=== PATIENT | male | born 1940 | race Caucasian/White ===

== ENCOUNTER 2019-02-03 09:01 | Inpatient (IN) | payer MEDICARE, BC ==
[2019-02-03 09:40] LABS: Basophils % (A) 1 %; Eosinophils # (A) 0.3 k/uL (0-0.7); Eosinophils % (A) 4 %; HCT 42.5 % (39.0-53.0); HGB 14.6 gm/dL (13.0-17.5); Lymphocytes % (A) 14 %; MCHC 34.3 g/dL (31.0-37.0); MCV 87.5 fL (80.0-100.0); Mean Platelet Volume 7.9; Monocytes # (A) 0.4 k/uL (0-1.0); Monocytes % (A) 6 %; Neutrophils # (A) 5.3 k/uL (1.3-7.7); Neutrophils % (A) 74 %; Platelet Count 201 k/uL (150-450); RBC 4.86 m/uL (4.30-5.90); RDW 13.7 % (11.5-15.5); WBC 7.1 k/uL (3.8-10.6)
--- NOTE | 2019-02-03 09:47 | XR ---
EXAMINATION TYPE: XR chest 2V DATE OF EXAM: 02/03/2019 HISTORY: difficulty breathing. REFERENCE: NONE. FINDINGS: The heart is mildly prominent. The lungs are clear. Pleural space are clear. IMPRESSION: MILD CARDIOMEGALY.
--- NOTE | 2019-02-03 09:49 | ED ---
SOB HPI - General Chief Complaint: Shortness of Breath Stated Complaint: SOB Time Seen by Provider: 02/03/19 09:13 Source: patient, RN notes reviewed Mode of arrival: ambulatory Limitations: no limitations - History of Present Illness Initial Comments: This is a 78-year-old male with a history of coronary artery bypass 4 in 1995 but who denies any lung issues who presents with complaints of intermittent episodes of shortness of breath. He states he has some yesterday. None now no chest pain no palpitations no fevers chills nausea vomiting sweats cough or phlegm production of note his in the past 2 or 3 weeks. MD Complaint: shortness of breath - Related Data Allergies Allergy/AdvReac Type Severity Reaction Status Date / Time No Known Allergies Allergy Verified 02/03/19 09:08 Review of Systems ROS Statement: Those systems with pertinent positive or pertinent negative responses have been documented in the HPI. ROS Other: All systems not noted in ROS Statement are negative. Past Medical History Past Medical History: Unable to Obtain History of Any Multi-Drug Resistant Organisms: None Reported Past Surgical History: Coronary Bypass/CABG Past Psychological History: No Psychological Hx Reported Smoking Status: Current every day smoker Past Alcohol Use History: None Reported Past Drug Use History: None Reported General Exam - General Exam Comments Initial Comments: This is a well-developed well-nourished awake alert oriented 3 male Limitations: no limitations General appearance: alert, in no apparent distress Head exam: Present: atraumatic, normocephalic, normal inspection Eye exam: Present: normal appearance, PERRL, EOMI. Absent: scleral icterus, conjunctival injection, periorbital swelling ENT exam: Present: normal exam, mucous membranes moist Neck exam: Present: normal inspection. Absent: tenderness, meningismus, lymphadenopathy Respiratory exam: Present: normal lung sounds bilaterally. Absent: respiratory distress, wheezes, rales, rhonchi, stridor Cardiovascular Exam: Present: bradycardia. Absent: systolic murmur, diastolic murmur, rubs, gallop, clicks GI/Abdominal exam: Present: soft, normal bowel sounds. Absent: distended, tenderness, guarding, rebound, rigid Extremities exam: Present: normal inspection, full ROM, normal capillary refill. Absent: tenderness, pedal edema, joint swelling, calf tenderness Back exam: Present: normal inspection Neurological exam: Present: alert, oriented X3, CN II-XII intact Psychiatric exam: Present: normal affect, normal mood Skin exam: Present: warm, dry, intact, normal color. Absent: rash Course Vital Signs 02/03/19 02/03/19 02/03/19 09:04 09:22 09:30 Pulse Rate 40 L 56 L 49 L Respiratory 18 Rate Blood Pressure 172/89 117/80 O2 Sat by Pulse 98 94 L Oximetry 02/03/19 02/03/19 10:00 11:09 Pulse Rate 50 L 51 L Respiratory 17 17 Rate Blood Pressure 124/72 128/79 O2 Sat by Pulse 96 Oximetry Medical Decision Making - Medical Decision Making I did discuss findings with the patient patient will be admitted with cardiology consultation the case is discussed with - Lab Data Result diagrams: 02/03/19 09:23 02/03/19 09:23 Lab Results 02/03/19 02/03/19 02/03/19 Range/Units 09:23 09:23 09:23 WBC 7.1 (3.8-10.6) k/uL RBC 4.86 (4.30-5.90) m/uL Hgb 14.6 (13.0-17.5) gm/dL Hct 42.5 (39.0-53.0) % MCV 87.5 (80.0-100.0) fL MCH 30.0 (25.0-35.0) pg MCHC 34.3 (31.0-37.0) g/dL RDW 13.7 (11.5-15.5) % Plt Count 201 (150-450) k/uL Neutrophils % 74 % Lymphocytes % 14 % Monocytes % 6 % Eosinophils % 4 % Basophils % 1 % Neutrophils # 5.3 (1.3-7.7) k/uL Lymphocytes # 1.0 (1.0-4.8) k/uL Monocytes # 0.4 (0-1.0) k/uL Eosinophils # 0.3 (0-0.7) k/uL Basophils # 0.0 (0-0.2) k/uL PT 10.5 (9.0-12.0) sec INR 1.0 (<1.2) APTT 25.3 (22.0-30.0) sec D-Dimer 0.66 H (<0.60) mg/L FEU Sodium 139 (137-145) mmol/L Potassium 4.0 (3.5-5.1) mmol/L Chloride 107 (98-107) mmol/L Carbon Dioxide 22 (22-30) mmol/L Anion Gap 10 mmol/L BUN 12 (9-20) mg/dL Creatinine 0.89 (0.66-1.25) mg/dL Est GFR (CKD-EPI)AfAm >90 (>60 ml/min/1.73 sqM) Est GFR (CKD-EPI)NonAf 83 (>60 ml/min/1.73 sqM) Glucose 133 H (74-99) mg/dL Calcium 9.0 (8.4-10.2) mg/dL Magnesium 2.0 (1.6-2.3) mg/dL Total Bilirubin 1.4 H (0.2-1.3) mg/dL AST 21 (17-59) U/L ALT 36 (21-72) U/L Alkaline Phosphatase 61 (38-126) U/L Creatine Kinase 63 (55-170) U/L Troponin I (0.000-0.034) ng/mL NT-Pro-B Natriuret Pep pg/mL Total Protein 6.8 (6.3-8.2) g/dL Albumin 4.2 (3.5-5.0) g/dL 02/03/19 02/03/19 Range/Units 09:23 09:23 WBC (3.8-10.6) k/uL RBC (4.30-5.90) m/uL Hgb (13.0-17.5) gm/dL Hct (39.0-53.0) % MCV (80.0-100.0) fL MCH (25.0-35.0) pg MCHC (31.0-37.0) g/dL RDW (11.5-15.5) % Plt Count (150-450) k/uL Neutrophils % % Lymphocytes % % Monocytes % % Eosinophils % % Basophils % % Neutrophils # (1.3-7.7) k/uL Lymphocytes # (1.0-4.8) k/uL Monocytes # (0-1.0) k/uL Eosinophils # (0-0.7) k/uL Basophils # (0-0.2) k/uL PT (9.0-12.0) sec INR (<1.2) APTT (22.0-30.0) sec D-Dimer (<0.60) mg/L FEU Sodium (137-145) mmol/L Potassium (3.5-5.1) mmol/L Chloride (98-107) mmol/L Carbon Dioxide (22-30) mmol/L Anion Gap mmol/L BUN (9-20) mg/dL Creatinine (0.66-1.25) mg/dL Est GFR (CKD-EPI)AfAm (>60 ml/min/1.73 sqM) Est GFR (CKD-EPI)NonAf (>60 ml/min/1.73 sqM) Glucose (74-99) mg/dL Calcium (8.4-10.2) mg/dL Magnesium (1.6-2.3) mg/dL Total Bilirubin (0.2-1.3) mg/dL AST (17-59) U/L ALT (21-72) U/L Alkaline Phosphatase (38-126) U/L Creatine Kinase (55-170) U/L Troponin I 0.029 (0.000-0.034) ng/mL NT-Pro-B Natriuret Pep 4980 pg/mL Total Protein (6.3-8.2) g/dL Albumin (3.5-5.0) g/dL - EKG Data -: EKG Interpreted by Me (Sinus bradycardia rate of 49. Interval 322 QRS duration 140 QT since QTC ) 02/03/19 12:15 Sinus bradycardia first-degree AV block with the ventricular contractions rate 49. Interval 322 QRS 140 QT since QTC 516/466 red bundle-branch block pattern inferior changes also nonspecific anterior configuration - Radiology Data Radiology results: report reviewed (No definite acute changes seen in x-ray.), image reviewed Disposition Clinical Impression: Congestive heart failure, Bradycardia Disposition: ADMITTED IP TO THIS HOSP Condition: Fair Referrals: Juan Pablo Dayl MD [Primary Care Provider] - 1-2 days
[2019-02-03 09:53] LABS: Partial Thromboplastin Time 25.3 sec (22.0-30.0); Prothrombin Time 10.5 sec (9.0-12.0)
[2019-02-03 09:54] LABS: ALT 36 U/L (21-72); AST 21 U/L (17-59); African American GFR (CKD) >90 (>60 ml/min/1.73 sqM); Albumin 4.2 g/dL (3.5-5.0); Alkaline Phosphatase 61 U/L (38-126); Anion Gap 10 mmol/L; Blood Urea Nitrogen 12 mg/dL (9-20); Carbon Dioxide 22 mmol/L (22-30); Chloride 107 mmol/L (98-107); Creatine Kinase 63 U/L (55-170); Glucose 133 mg/dL (74-99); Non-African American GFR(CKD) 83 (>60 ml/min/1.73 sqM); Sodium 139 mmol/L (137-145); Total Bilirubin 1.4 mg/dL (0.2-1.3); Total Protein 6.8 g/dL (6.3-8.2)
[2019-02-03 09:55] LABS: D-Dimer 0.66 mg/L FEU (<0.60)
--- NOTE | 2019-02-03 11:08 | CT ---
EXAMINATION TYPE: CT angio chest DATE OF EXAM: 02/03/2019 10:57 AM COMPARISON: None. HISTORY: Dyspnea with elevated d-dimer CT DLP: 380.6 mGycm Automated exposure control for dose reduction was used. CONTRAST: CTA scan of the thorax is performed with IV Contrast, patient injected with 100 mL of Isovue 370, pul monary embolism protocol. . FINDINGS: There is mild dependent atelectasis in the dependent portions of both lungs. There is no significant axillary, mediastinal or hilar adenopathy. There is no evidence of pulmonary embolus. Through the aorta is dilated measuring 4.3 cm. The proximal arch is aneurysmal measuring 3.5 cm. Prox imal descending thoracic aorta is aneurysmal measuring 3.2 cm. At the level of the aortic hiatus, the aorta measures 2.8 cm. There is no pleural or pericardial fluid. The heart is enlarged. Visualized portions of the upper abdomen are unremarkable. There is degenerative disease, hypertrophic spondylosis and spondylosis deformans within the dorsal s pine. IMPRESSION: 1. THIS EXAMINATION IS NEGATIVE FOR PULMONARY EMBOLUS. 2. ASCENDING THORACIC AORTIC ANEURYSM. 3. CARDIOMEGALY. 4. DEGENERATIVE CHANGE WITHIN THE SPINE.
[2019-02-03] MEDS ORDERED: FUROSEMIDE 10 MG/ML 4 ML VIAL IV STA (12:14)
[2019-02-03] MEDS: SODIUM CHLORIDE 0.9% 1,000 ML IV SCH (14:20)
[2019-02-03] MEDS: SPIRONOLACTONE 25 MG TAB PO SCH (17:09)
[2019-02-03] MEDS: FUROSEMIDE 10 MG/ML 4 ML VIAL IV SCH (20:32)
[2019-02-03] MEDS ORDERED: ACETAMINOPHEN TAB 500 MG TAB PO PRN (21:28)
[2019-02-03] MEDS: ATORVASTATIN 40 MG TAB PO SCH (22:21)
--- NOTE | 2019-02-03 23:45 | P.HPIM ---
History of Present Illness H&P Date: 02/03/19 Chief Complaint: Shortness of breath Patient is a 78 old male with a known history of coronary artery disease status post CABG in 1995 came to ER with the complaints of shortness of breath and fluid around the heart. Denied any complaints of cough or sputum production. No complains of chest pain. No nausea vomiting or abdominal pain. Patient denied any leg swelling. Patient is also poor historian. Denied any fever or chills. Patient says that he does take his medications at home. Denied history of recent stress test. Patient's in the past 2-3 weeks. BNP 4980. Troponin 0.029 and 0.1 chest x-ray showed mild cardiomegaly. d-dimer is 0.66 CT angiogram of the chest showed negative for pulmonary embolism. Ascending thoracic aortic aneurysm measuring 4.3 cm. Cardiomegaly. Degenerative changes in the spine. Heart rate is in 40s on admission. Review of Systems Constitutional: Patient denies any fever or chills . No generalized weakness or weight loss. Abdomen: Patient denied nausea vomiting and diarrhea and abdominal pain. Cardiovascular: Patient denies any chest pain or does have short of breath no palpitations. Respiratory: patient denied any cough is from production. No shortness of br eath Neurologic: Patient denied any numbness or tingling headache. Musculoskeletal: Patient denies any complaints of joint swelling or deformity. Skin: Negative Psychiatric: Negative Endocrine: No heat or cold intolerance. No recent weight gain. Genitourinary: No dysuria or hematuria. All other 14 point ROS negative except the above Past Medical History Past Medical History: Coronary Artery Disease (CAD) History of Any Multi-Drug Resistant Organisms: None Reported Past Surgical History: Coronary Bypass/CABG Additional Past Surgical History / Comment(s): KIELAG in 1995 Past Anesthesia/Blood Transfusion Reactions: No Reported Reaction Past Psychological History: No Psychological Hx Reported Smoking Status: Never smoker Past Alcohol Use History: None Reported Past Drug Use History: None Reported - Past Family History Father Family Medical History: Coronary Artery Disease (CAD) Mother Family Medical History: Coronary Artery Disease (CAD) Medications and Allergies Home Medications Medication Instructions Recorded Confirmed Type Acetaminophen Tab [Tylenol Tab] 500 mg PO Q6H PRN 02/03/19 02/03/19 History Ascorbic Acid [Vitamin C] 500 mg PO DAILY 02/03/19 02/03/19 History Aspirin EC [Ecotrin Low Dose] 81 mg PO DAILY 02/03/19 02/03/19 History Carvedilol [Coreg] 3.125 mg PO BID 02/03/19 02/03/19 History Cholecalciferol (Vitamin D3) 2,000 unit PO DAILY 02/03/19 02/03/19 History [Vitamin D3] Cyanocobalamin [Vitamin B-12] 500 mcg PO DAILY 02/03/19 02/03/19 History Furosemide [Lasix] 40 mg PO HS 02/03/19 02/03/19 History Fortuna-3 Fatty Acids/Fish Oil [Fish 1 cap PO BID 02/03/19 02/03/19 History Oil 1,000 mg Softgel] Omeprazole 20 mg PO DAILY 02/03/19 02/03/19 History Potassium Chloride ER [K-Dur 10] 10 meq PO HS 02/03/19 02/03/19 History Allergies Allergy/AdvReac Type Severity Reaction Status Date / Time No Known Allergies Allergy Verified 02/03/19 12:27 Physical Exam Vitals: Vital Signs Temp Pulse Pulse Resp BP BP Pulse Ox 02/03/19 16:00 43 L 20 136/74 99 02/03/19 13:08 137/68 02/03/19 13:05 20 02/03/19 12:32 97.4 F L 62 20 138/72 97 02/03/19 12:00 54 L 119/97 97 02/03/19 11:09 51 L 17 128/79 02/03/19 11:00 61 111/50 97 02/03/19 10:30 44 L 124/74 96 02/03/19 10:00 50 L 17 124/72 96 02/03/19 09:30 49 L 117/80 02/03/19 09:22 56 L 94 L 02/03/19 09:04 40 L 18 172/89 98 Intake and Output 02/03/19 02/03/19 02/03/19 06:59 14:59 22:59 Intake Total 236 Balance 236 Intake: Oral 236 Other: # Voids 1 Weight 72.575 kg PHYSICAL EXAMINATION: Patient is lying in the bed comfortably, no acute distress, awake alert and oriented.. HEENT: Normocephalic. Neck is supple. Pupils reactive. Nostrils clear. Oral cavity is moist. Ears reveal no drainage. Neck reveals no JVD, carotid bruits, or thyromegaly. CHEST EXAMINATION: Trachea is central. Symmetrical expansion. Bibasilar diminished air entry. No wheezing. CARDIAC: Normal S1, S2 with no gallops. No murmurs ABDOMEN: Soft. Bowel sounds normal. No organomegaly. No abdominal bruits. Extremities: reveal no edema. No clubbing or cyanosis Neurologically awake, alert, oriented x3 with well-coordinated movements. No focal deficits noted Skin: No rash or skin lesions. Psychiatric: Coperative. Nonsuicidal. Anxious. Musculoskeletal: No joint swelling or deformity. Normal range of motion. Results CBC & Chem 7: 02/03/19 09:23 02/03/19 09:23 Labs: Abnormal Lab Results - Last 24 Hours (Table) 02/03/19 02/03/19 02/03/19 Range/Units 09:23 09:23 20:02 D-Dimer 0.66 H (<0.60) mg/L FEU Glucose 133 H (74-99) mg/dL Total Bilirubin 1.4 H (0.2-1.3) mg/dL Troponin I 0.100 H* (0.000-0.034) ng/mL Thrombosis Risk Factor Assmnt - DVT/VTE Prophylaxis DVT/VTE Prophylaxis: Pharmacologic Prophylaxis ordered - Choose All That Apply Any of the Below Risk Factors Present?: No Other Risk Factors: No Other congenital or acquired thrombophilia - If yes, enter type in comment: No Thrombosis Risk Factor Assessment Level: Very Low Risk Assessment and Plan Assessment: Shortness of breath likely due to acute CHF. Ejection fraction unknown. Sinus bradycardia with heart rate 40 Ascending aortic aneurysm 4.3 cm Elevated d-dimer level. CTA negative for pulmonary embolism. Mild cardiomegaly Coronary artery disease with history of CABG in 1995 GERD Degenerative joint disease. DVT prophylaxis with heparin subcu Plan: Patient will be continued on telemetry monitoring. Continue with IV Lasix. Monitor renal function. Chloride is on hold due to bradycardia. Continue with aspirin and statins. Cardiology was consulted. 2-D echocardiogram will be obtained. Further recommendations based on the clinical course. Time with Patient: Greater than 30
[2019-02-04] MEDS: HEPARIN SODIUM,PORCINE 5,000 UNIT/ML 1 ML VIAL SQ SCH ×3 (00:04→18:15)
[2019-02-04] MEDS: FUROSEMIDE 10 MG/ML 4 ML VIAL IV SCH ×3 (04:25→20:14)
[2019-02-04 06:06] LABS: Basophils % (A) 1 %; Eosinophils # (A) 0.4 k/uL (0-0.7); Eosinophils % (A) 5 %; HCT 46.4 % (39.0-53.0); HGB 15.9 gm/dL (13.0-17.5); Lymphocytes # (A) 1.5 k/uL (1.0-4.8); Lymphocytes % (A) 20 %; MCH 30.2 pg (25.0-35.0); MCHC 34.3 g/dL (31.0-37.0); MCV 87.9 fL (80.0-100.0); Mean Platelet Volume 7.8; Monocytes # (A) 0.4 k/uL (0-1.0); Monocytes % (A) 6 %; Neutrophils # (A) 4.9 k/uL (1.3-7.7); Neutrophils % (A) 67 %; Platelet Count 187 k/uL (150-450); RBC 5.28 m/uL (4.30-5.90); RDW 13.8 % (11.5-15.5); WBC 7.4 k/uL (3.8-10.6)
[2019-02-04] MEDS: PANTOPRAZOLE 40 MG TABLET PO SCH (06:07)
[2019-02-04 06:20] LABS: Calcium 9.6 mg/dL (8.4-10.2); Potassium 3.6 mmol/L (3.5-5.1)
[2019-02-04] MEDS: ATORVASTATIN 40 MG TAB PO SCH (09:14)
[2019-02-04] MEDS: SPIRONOLACTONE 25 MG TAB PO SCH (09:14)
[2019-02-04] MEDS: ASPIRIN 81 MG PO SCH (09:14)
--- NOTE | 2019-02-04 10:46 | ECHOF ---
Referral Reason:Heart failure. MEASUREMENTS -------- HEIGHT: 167.6 cm WEIGHT: 70.8 kg BP: 118/60 IVSd: 1.0 cm (0.6 - 1.1) LVIDd: 5.9 cm (3.9 - 5.3) LVPWd: 1.2 cm (0.6 - 1.1) IVSs: 1.9 cm LVIDs: 4.8 cm LVPWs: 1.4 cm LAESV Index (A-L): 47.30 ml/m Ao Diam: 4.2 cm (2.0 - 3.7) AV Cusp: 1.5 cm (1.5 - 2.6) LA Diam: 2.6 cm (2.7 - 3.8) MV EXCURSION: 15.965 mm (> 18.000) MV EF SLOPE: 119 mm/s (70 - 150) EPSS: 2.6 cm MV E Thaddeus: 1.02 m/s MV DecT: 166 ms MV A Thaddeus: 0.38 m/s MV E/A Ratio: 2.70 AR PHT: 407 ms RAP: 5.00 mmHg RVSP: 8.65 mmHg TAPSE: 18.66 mm FINDINGS -------- Resting bradycardia (HR<60bpm). This was a technically difficult study with suboptimal views. Previous CABG The left ventricle is mildly dilated. Left ventricular wall thickness is normal. There is severe global hypokinesis of LV . Overall left ventricular systolic function is severely impaired with, an EF between 20 - 25 %. Increased LAP Grade 3 Diastolic Dysfunction. The right ventricle is normal in size. LA is severely dilated >40 ml/m2 The right atrial size is normal. Lumason used The aortic valve is trileaflet and appears structurally normal. There is mild aortic regurgitation. The mitral valve is normal. The mitral valve leaflets are mildly thickened. Moderate mitral regur gitation is present. The tricuspid valve appears structurally normal. Mild tricuspid regurgitation present. Right vent ricular systolic pressure is normal at < 35 mmHg. There is no pulmonic regurgitation present. 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 There is no pericardial effusion. CONCLUSIONS -------- 1. Resting bradycardia (HR<60bpm). 2. This was a technically difficult study with suboptimal views. 3. Previous CABG 4. The left ventricle is mildly dilated. 5. Left ventricular wall thickness is normal. 6. There is severe global hypokinesis of LV . 7. Overall left ventricular systolic function is severely impaired with, an EF between 20 - 25 %. 8. Increased LAP Grade 3 Diastolic Dysfunction. 9. The right ventricle is normal in size. 10. LA is severely dilated >40 ml/m2 11. The right atrial size is normal. 12. Lumason used 13. The aortic valve is trileaflet and appears structurally normal. 14. There is mild aortic regurgitation. 15. The mitral valve is normal. 16. The mitral valve leaflets are mildly thickened. 17. Moderate mitral regurgitation is present. 18. The tricuspid valve appears structurally normal. 19. Mild tricuspid regurgitation present. 20. Right ventricular systolic pressure is normal at < 35 mmHg. 21. There is no pulmonic regurgitation present. 22. 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 IVC Not well visulized. 24. There is no pericardial effusion. NECKTIE TURNER: Gerri Bates RDCS
[2019-02-04 11:15] VITALS: BMI 25.2
--- NOTE | 2019-02-04 12:16 | P.CRDCN ---
History of Present Illness Consult date: 02/04/19 Requesting physician: Letty Mcgee Consult reason: congestive heart failure Chief complaint: Shortness of breath History of present illness: This is a 78-year-old gentleman with history of coronary artery bypass graft surgery several years ago, hypertension, hyperlipidemia, current every day smoker, he states that he used to follow with Dr. Mena in the office, had some type of falling out and has not seen him since. He also states that he is followed with the physicians at [facility]. His primary care doctor is local. The patient lost his 2-3 weeks ago after being for 51 years. He presents to the hospital on this occasion with symptoms of shortness of breath, positive PND and orthopnea, no significant peripheral edema, no chest discomfort. His chest x-ray on presentation here showed mild cardiomegaly. CTA of the chest was performed, negative for pulmonary embolism, it did reveal an ascending thoracic aortic aneurysm measuring 4.3 cm. His EKG on presentation here showed a sinus bradycardia with first-degree AV block and occasional PVCs right bundle branch block pattern and inferior Q waves. Blood pressure on arrival here 172/88 with a heart rate in the 40s to 50s, 98% on room air. Blood pressure this morning 128/60 with a heart rate in the 70s, 94% on room air. White blood cell count is normal, hemoglobin 15.9, platelet count 187, d-dimer 0.6. Sodium 140, potassium 3.6, BUN 18, creatinine 1.03. Troponin 0.029, 0.100, 0.078. BNP level 4980. Patient denies having any chest discomfort, other than the shortness of breath he states he just did not feel right. Total bilirubin 1.4. Patient was initiated on IV Lasix on arrival here, his weight today is down 1 kg. Echocardiogram with Doppler study was performed which revealed an ejection fraction of 20-25%. The patient is unsure as to whether or not he's been told in the past to have cardiomyopathy, we will try to obtain an old echo from the office in this regard. I did have a discussion with the patient this morning regarding the initiation of Entresto, we will start that today and continue with current dose of IV Lasix. Past Medical History Past Medical History: Coronary Artery Disease (CAD) History of Any Multi-Drug Resistant Organisms: None Reported Past Surgical History: Coronary Bypass/CABG Additional Past Surgical History / Comment(s): CABAG in 1995 Past Anesthesia/Blood Transfusion Reactions: No Reported Reaction Past Psychological History: No Psychological Hx Reported Smoking Status: Never smoker Past Alcohol Use History: None Reported Past Drug Use History: None Reported - Past Family History Father Family Medical History: Coronary Artery Disease (CAD) Mother Family Medical History: Coronary Artery Disease (CAD) Medications and Allergies Home Medications Medication Instructions Recorded Confirmed Type Acetaminophen Tab [Tylenol Tab] 500 mg PO Q6H PRN 02/03/19 02/03/19 History Ascorbic Acid [Vitamin C] 500 mg PO DAILY 02/03/19 02/03/19 History Aspirin EC [Ecotrin Low Dose] 81 mg PO DAILY 02/03/19 02/03/19 History Carvedilol [Coreg] 3.125 mg PO BID 02/03/19 02/03/19 History Cholecalciferol (Vitamin D3) 2,000 unit PO DAILY 02/03/19 02/03/19 History [Vitamin D3] Cyanocobalamin [Vitamin B-12] 500 mcg PO DAILY 02/03/19 02/03/19 History Furosemide [Lasix] 40 mg PO HS 02/03/19 02/03/19 History [place]-3 Fatty Acids/Fish Oil [Fish 1 cap PO BID 02/03/19 02/03/19 History Oil 1,000 mg Softgel] Omeprazole 20 mg PO DAILY 02/03/19 02/03/19 History Potassium Chloride ER [K-Dur 10] 10 meq PO HS 02/03/19 02/03/19 History Allergies Allergy/AdvReac Type Severity Reaction Status Date / Time No Known Allergies Allergy Verified 02/03/19 12:27 Physical Exam Vitals: Vital Signs Temp Pulse Pulse Resp BP BP Pulse Ox 02/04/19 08:00 97.6 F 77 18 128/61 94 L 02/04/19 04:00 97.8 F 42 L 18 118/60 94 L 02/04/19 00:00 97.7 F 34 L 18 127/58 96 02/03/19 20:00 98.1 F 34 L 18 142/75 98 02/03/19 16:00 43 L 20 136/74 99 02/03/19 13:08 137/68 02/03/19 13:05 20 02/03/19 12:32 97.4 F L 62 20 138/72 97 02/03/19 12:00 54 L 119/97 97 Intake and Output 02/03/19 02/04/19 02/04/19 22:59 06:59 14:59 Intake Total 236 120 Output Total 1350 400 Balance -1114 -400 120 Intake: Oral 236 120 Output: Urine 1350 400 Other: Voiding Method Toilet Toilet Weight 71 kg 71 kg PHYSICAL EXAMINATION: GENERAL: 88-year-old gentleman in no acute distress at the time of my examination HEENT: Head is atraumatic, normocephalic. Pupils equal, round. Sclera anicteric. Conjunctiva are clear. Mucous membranes of the mouth are moist. Neck is supple. There is elevated jugular venous pressure. No carotid bruit is heard. HEART EXAMINATION: Heart S1 and S2 with systolic murmur is heard CHEST EXAMINATION: And circumflex clear with mild diminished air entry to the bases posteriorly. ABDOMEN: Soft, nontender. Bowel sounds are heard. No organomegaly noted. EXTREMITIES: 2+ peripheral pulses with no evidence of peripheral edema and no calf tenderness noted. NEUROLOGIC patient is awake, alert and oriented 3 . . Results 02/04/19 05:50 02/04/19 05:50 Cardiac Enzymes 02/03/19 02/04/19 Range/Units 20:02 05:50 Troponin I 0.100 H* 0.078 H* (0.000-0.034) ng/mL CBC 02/04/19 Range/Units 05:50 WBC 7.4 (3.8-10.6) k/uL RBC 5.28 (4.30-5.90) m/uL Hgb 15.9 (13.0-17.5) gm/dL Hct 46.4 (39.0-53.0) % Plt Count 187 (150-450) k/uL Comprehensive Metabolic Panel 02/04/19 Range/Units 05:50 Sodium 140 (137-145) mmol/L Potassium 3.6 (3.5-5.1) mmol/L Chloride 103 (98-107) mmol/L Carbon Dioxide 29 (22-30) mmol/L BUN 18 (9-20) mg/dL Creatinine 1.03 (0.66-1.25) mg/dL Glucose 103 H (74-99) mg/dL Calcium 9.6 (8.4-10.2) mg/dL Current Medications Generic Name Dose Route Start Last Admin Trade Name Freq PRN Reason Stop Dose Admin Acetaminophen 500 mg 02/03/19 21:28 Tylenol Tab PO Q6H PRN Pain Aspirin 81 mg 02/04/19 09:00 02/04/19 09:14 Aspirin PO 81 mg DAILY SUNSHINE Administration Atorvastatin Calcium 40 mg 02/03/19 22:00 02/04/19 09:14 Lipitor PO 40 mg DAILY SUNSHINE Administration Furosemide 40 mg 02/03/19 20:00 02/04/19 04:25 Lasix IV 40 mg Q8H SUNSHINE Administration Heparin Sodium (Porcine) 5,000 unit 02/04/19 00:00 02/04/19 09:14 Heparin SQ 5,000 unit Q8HR SUNSHINE Administration Sodium Chloride 1,000 mls @ 20 mls/hr 02/03/19 12:30 02/03/19 14:20 Saline 0.9% IV Not Given .Q24H SUNSHINE Pantoprazole Sodium 40 mg 02/04/19 07:30 02/04/19 06:07 Protonix PO 40 mg DAILY@0730 SUNSHINE Administration Potassium Chloride 10 meq 02/04/19 21:00 K-Dur 10 PO HS SUNSHINE Spironolactone 25 mg 02/03/19 16:30 02/04/19 09:14 Aldactone PO 25 mg DAILY SUNSHINE Administration Intake and Output 02/03/19 02/04/19 02/04/19 22:59 06:59 14:59 Intake Total 236 120 Output Total 1350 400 Balance -1114 -400 120 Intake: Oral 236 120 Output: Urine 1350 400 Other: Voiding Method Toilet Toilet Weight 71 kg 71 kg Patient Weight 02/05/19 06:59 Weight 71 kg 02/04/19 05:50 02/04/19 05:50 EKG Interpretations (text) EKG shows a sinus bradycardia with first-degree AV block, PVCs, right bundle branch block pattern and inferior Q waves. Assessment and Plan Plan: Assessment and plan #1 systolic congestive heart failure acute on chronic #2 sinus bradycardia, on Coreg 3.125 mg by mouth twice a day #3 history of coronary artery bypass grafting surgery #4 hypertension #5 hyperlipidemia #6 abnormality in troponin, CTA of the chest negative for pulmonary embolism, there is an ascending thoracic aortic aneurysm measuring 4.3 cm Plan Echocardiogram with Doppler study performed this admission revealed an ejection fraction of 20-25%, moderate mitral regurgitation noted. We will obtain records from the office on patient's prior LV function and most recent office visit as well as prior bypass report. According to the patient, Dr. Mena had told him in the past to have a slow heart rate and some medication adjustments have been made, he was also recommended to undergo some type of procedure of which the patient is unsure. It is very likely/possible that Dr. Villalobos discussed AICD implantation with the patient. Further recommendations will be made once we review the office records. We will start the patient on Entresto, continue Aldactone, IV Lasix, Coreg, Lipitor, and baby aspirin. DNP note has been reviewed, I agree with a documented findings and plan of care. Patient was seen and examined.
--- NOTE | 2019-02-04 15:29 | P.PN ---
Subjective Progress Note Date: 02/04/19 Principal diagnosis: Patient is a 78 old male with a known history of coronary artery disease status post CABG in 1995 came to ER with the complaints of shortness of breath and flu id around the heart. Denied any complaints of cough or sputum production. No complains of chest pain. No nausea vomiting or abdominal pain. Patient denied any leg swelling. Patient is also poor historian. Denied any fever or chills. Patient says that he does take his medications at home. Denied history of recent stress test. Patient's in the past 2-3 weeks. BNP 4980. Troponin 0.029 and 0.1 chest x-ray showed mild cardiomegaly. d-dimer is 0.66 CT angiogram of the chest showed negative for pulmonary embolism. Ascending thoracic aortic aneurysm measuring 4.3 cm. Cardiomegaly. Degenerative changes in the spine. Heart rate is in 40s on admission. 02/04/2019 Patient is up walking around the room with no acute issues. Heart rate is currently in the 70s. Patient denies any lightheadedness, dizziness, or feelings of passing out. Currently patient denies any chest pain, palpitations, or shortness of breath. Patient is afebrile. Patient denies any nausea or vomiting and has been tolerating diet. Cardiology is following. Patient underwent an echo today showing overall LV systolic function is severely impaired with an EF between 20 and 25%, mild aortic regurgitation, moderate mitral and tricuspid regurgitation present. Objective - Vital Signs Vital signs: Vital Signs Temp 97.6 F 02/04/19 08:00 Pulse 77 02/04/19 08:00 Resp 18 02/04/19 08:00 BP 128/61 02/04/19 08:00 Pulse Ox 94 L 02/04/19 08:00 Intake & Output 02/03/19 02/04/19 02/04/19 18:59 06:59 18:59 Intake Total 236 360 Output Total 1750 Balance 236 -1750 360 Weight 72.575 kg 71 kg 71 kg Intake: Oral 236 360 Output: Urine 1750 Other: Voiding Method Toilet # Voids 1 1 - Exam Patient is up in the halls, no acute distress, awake alert and oriented.. HEENT: Normocephalic. Neck is supple. Pupils reactive. Nostrils clear. Oral cavity is moist. Ears reveal no drainage. Neck reveals no JVD, carotid bruits, or thyromegaly. CHEST EXAMINATION: Trachea is central. Symmetrical expansion. Bibasilar diminished air entry. No wheezing. CARDIAC: Normal S1, S2 with no gallops. No murmurs ABDOMEN: Soft. Bowel sounds normal. No organomegaly. No abdominal bruits. Extremities: reveal no edema. No clubbing or cyanosis Neurologically awake, alert, oriented x3 with well-coordinated movements. No focal deficits noted Skin: No rash or skin lesions. Psychiatric: Cooperative. Non-suicidal. Mildly Anxious. Musculoskeletal: No joint swelling or deformity. Normal range of motion. - Labs CBC & Chem 7: 02/04/19 05:50 02/04/19 05:50 Labs: Abnormal Lab Results - Last 24 Hours (Table) 02/03/19 02/04/19 02/04/19 Range/Units 20:02 05:50 05:50 Glucose 103 H (74-99) mg/dL Troponin I 0.100 H* 0.078 H* (0.000-0.034) ng/mL Assessment and Plan Assessment: Shortness of breath likely due to acute CHF. Ejection fraction 20-25% from echo done today Sinus bradycardia with heart rate 40 Ascending aortic aneurysm 4.3 cm Elevated d-dimer level. CTA negative for pulmonary embolism. Mild cardiomegaly Coronary artery disease with history of CABG in 1995 GERD Degenerative joint disease. DVT prophylaxis with heparin subcu Plan: Patient will be continued on telemetry monitoring. Continue with IV Lasix. Patient is being started on Entresto. Monitor renal function. Will repeat a.m. labs Chloride is on hold due to bradycardia. Continue with aspirin and statins. Cardiology is following. 2-D echocardiogram shows overall left ventricular systolic function is severely impaired with an EF between 20 and 25%. Further recommendations based on the clinical course.
[2019-02-04] MEDS: SACUBITRIL/VALSARTAN 24 MG-26 MG TABLET PO SCH ×2 (18:14→20:14)
--- NOTE | 2019-02-04 18:28 | PN ---
PROGRESS NOTE Patient had a right above-knee amputation. Today we have changed the dressing. Incision site is healing good. No sign of infection noted. Dressing changed. We will leave this dressing for another 48 hours. MMODL / IJN: [id number] /
[2019-02-04] MEDS: POTASSIUM CHLORIDE ER 10 MEQ TAB.ER.PRT PO SCH (20:14)
[2019-02-04] MEDS: SODIUM CHLORIDE 0.9% 1,000 ML IV SCH (23:49)
[2019-02-05] MEDS: HEPARIN SODIUM,PORCINE 5,000 UNIT/ML 1 ML VIAL SQ SCH (03:24)
[2019-02-05] MEDS ORDERED: HEPARIN SODIUM,PORCINE 5,000 UNIT/ML 1 ML VIAL IV PRN (03:42)
[2019-02-05] MEDS ORDERED: HEPARIN SODIUM,PORCINE 5,000 UNIT/ML 1 ML VIAL IV ONE (03:42)
[2019-02-05] MEDS: HEPARIN SOD,PORK IN 0.45% NACL 25,000 UNIT in 0.45% NACL 1 250ML.BAG IV SCH (04:12)
[2019-02-05] MEDS: FUROSEMIDE 10 MG/ML 4 ML VIAL IV SCH ×2 (04:14→09:33)
[2019-02-05] MEDS: PANTOPRAZOLE 40 MG TABLET PO SCH (06:24)
[2019-02-05] MEDS: ASPIRIN 81 MG PO SCH (09:33)
[2019-02-05] MEDS: SACUBITRIL/VALSARTAN 24 MG-26 MG TABLET PO SCH ×2 (09:33→20:06)
[2019-02-05] MEDS: ATORVASTATIN 40 MG TAB PO SCH (09:33)
[2019-02-05] MEDS: SPIRONOLACTONE 25 MG TAB PO SCH (09:33)
[2019-02-05 09:50] LABS: Calcium 9.9 mg/dL (8.4-10.2); Potassium 4.1 mmol/L (3.5-5.1)
[2019-02-05 10:12] LABS: Basophils % (A) 1 %; Eosinophils # (A) 0.3 k/uL (0-0.7); Eosinophils % (A) 3 %; HCT 51.6 % (39.0-53.0); HGB 17.5 gm/dL (13.0-17.5); Lymphocytes # (A) 1.7 k/uL (1.0-4.8); Lymphocytes % (A) 18 %; MCHC 33.9 g/dL (31.0-37.0); MCV 88.5 fL (80.0-100.0); Mean Platelet Volume 8.2; Monocytes # (A) 0.6 k/uL (0-1.0); Monocytes % (A) 6 %; Neutrophils # (A) 6.3 k/uL (1.3-7.7); Neutrophils % (A) 70 %; Platelet Count 204 k/uL (150-450); RBC 5.83 m/uL (4.30-5.90); RDW 13.7 % (11.5-15.5)
--- NOTE | 2019-02-05 13:26 | P.PN ---
Subjective Progress Note Date: 02/05/19 This is a 78-year-old gentleman with history of coronary artery bypass graft surgery several years ago, hypertension, hyperlipidemia, current every day smoker, he states that he used to follow with Dr. Mena in the office, had some type of falling out and has not seen him since. He also states that he is followed with the physicians at [facility]. His primary care doctor is local. The patient lost his 2-3 weeks ago after being for 51 years. He presents to the hospital on this occasion with symptoms of shortness of breath, positive PND and orthopnea, no significant peripheral edema, no chest discomfort. His chest x-ray on presentation here showed mild cardiomegaly. CTA of the chest was performed, negative for pulmonary embolism, it did reveal an ascending thoracic aortic aneurysm measuring 4.3 cm. His EKG on presentation here showed a sinus bradycardia with first-degree AV block and occasional PVCs right bundle branch block pattern and inferior Q waves. Blood pressure on arrival here 172/88 with a heart rate in the 40s to 50s, 98% on room air. Blood pressure this morning 128/60 with a heart rate in the 70s, 94% on room air. White blood cell count is normal, hemoglobin 15.9, platelet count 187, d-dimer 0.6. Sodium 140, potassium 3.6, BUN 18, creatinine 1.03. Troponin 0.029, 0.100, 0.078. BNP level 4980. Patient denies having any chest discomfort, other than the shortness of breath he states he just did not feel right. Total bilirubin 1.4. Patient was initiated on IV Lasix on arrival here, his weight today is down 1 kg. Echocardiogram with Doppler study was performed which revealed an ejection fraction of 20-25%. The patient is unsure as to whether or not he's been told in the past to have cardiomyopathy, we will try to obtain an old echo from the office in this regard. I did have a discussion with the patient this morning regarding the initiation of Entresto, we will start that today and continue with current dose of IV Lasix. 02/05/2019 Patient seen and examined this morning, weight is down 2 kg today, BUN 32, creatinine 1.5, creatinine was 1.0 yesterday. Blood pressure 113/70 with a heart rate in the 60s, 96% on room air. We will discontinue the IV Lasix and repeat a chest x-ray tomorrow morning. Objective - Vital Signs Vital signs: Vital Signs Temp 97.8 F 02/05/19 03:15 Pulse 108 H 02/05/19 08:00 Resp 16 02/05/19 08:00 BP 113/70 02/05/19 08:00 Pulse Ox 96 02/05/19 08:00 Intake & Output 02/04/19 02/05/19 02/05/19 18:59 06:59 18:59 Intake Total 600 480 Output Total 600 Balance 600 -600 480 Weight 71 kg 68 kg Intake: Oral 600 480 Output: Urine 600 Other: Voiding Method Toilet Urinal # Voids 1 1 - Exam PHYSICAL EXAMINATION: GENERAL: 88-year-old gentleman in no acute distress at the time of my examination HEENT: Head is atraumatic, normocephalic. Pupils equal, round. Sclera anicteric. Conjunctiva are clear. Mucous membranes of the mouth are moist. Neck is supple. There is elevated jugular venous pressure. No carotid bruit is heard. HEART EXAMINATION: Heart S1 and S2 with systolic murmur is heard CHEST EXAMINATION: Lungs are clear with improvement in air entry to the bases posteriorly. ABDOMEN: Soft, nontender. Bowel sounds are heard. No organomegaly noted. EXTREMITIES: 2+ peripheral pulses with no evidence of peripheral edema and no calf tenderness noted. NEUROLOGIC patient is awake, alert and oriented 3 . 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 DNP note has been reviewed, I agree with a documented findings and plan of care. Patient was seen and examined.
[2019-02-05] MEDS: SODIUM CHLORIDE 0.9% 1,000 ML IV SCH (15:52)
[2019-02-05] MEDS: POTASSIUM CHLORIDE ER 10 MEQ TAB.ER.PRT PO SCH (20:06)
--- NOTE | 2019-02-05 22:58 | PN ---
PROGRESS NOTE DATE OF SERVICE: 02/05/2019. PRESENTING COMPLAINT: Shortness of breath. INTERVAL HISTORY: This is a patient with known coronary artery disease with bypass in 1995 presented with shortness of breath. Has no edema. The patient admitted with CHF exacerbation. Today-the patient remains short of breath. Getting IV Lasix. Gets tired easily. No cough. REVIEW OF SYSTEMS: Done for constitutional, cardiovascular, GI, pulmonary; relevant findings as above. CURRENT MEDICATIONS: Reviewed that include Lipitor, aspirin, IV heparin, Entresto and Aldactone. PHYSICAL EXAMINATION: VITAL SIGNS: Temperature 97.8. Pulse 108, respirations 16, blood pressure 113/70, pulse ox 96% on room air. GENERAL APPEARANCE: Sitting at the edge of the bed, tired. EYES: Pupils equal. Conjunctivae normal. NECK: JVD unable to assess. Mass not palpable. RESPIRATORY: Effort increased. LUNGS: Diminished breath sounds. CARDIOVASCULAR: 1st and 2nd sounds normal. No edema. ABDOMEN: Soft, nontender. Liver and spleen not palpable. PSYCHIATRY: Alert and oriented times three. Mood and affect normal. INVESTIGATIONS: White count 9, hemoglobin 17.5, potassium 4.1. BUN 32, creatinine 1.51. Previous investigations: BUN was 12, creatinine was 0.89 on admission. Troponin I 0.029, 0.1, 0.0788. EKG shows PVCs with a right bundle branch block pattern. 2D echocardiogram EF of 20-25 percent, moderate mitral regurgitation, severe global hypokinesia of left ventricle. ASSESSMENT: 1. Acute on chronic congestive heart failure from systolic dysfunction EF 20-25 percent. 2. Moderate mitral regurgitation, non rheumatic. 3. Coronary artery disease with prior history of coronary artery bypass. 4. Essential hypertension. 5. Hyperlipidemia. 6. Troponin leak from congestive heart failure, not acute coronary syndrome. 7. Ascending thoracic aortic aneurysm 4.3 cm. 8. Acute renal failure, prerenal from diuresis. 9. Acute renal failure prerenal from diuresis, new diagnosis. PLAN: Continue current medication and treatment plan. The patient's Lasix to be discontinued. Keep a very close eye on renal function. Temporary hold off Aldactone in the morning. Repeat labs in the morning. Care was discussed with the patient. MMODL / IJN: [id number] /
[2019-02-06] MEDS: HEPARIN SOD,PORK IN 0.45% NACL 25,000 UNIT in 0.45% NACL 1 250ML.BAG IV SCH (03:24)
[2019-02-06] MEDS: PANTOPRAZOLE 40 MG TABLET PO SCH (06:33)
[2019-02-06 06:40] LABS: Calcium 9.7 mg/dL (8.4-10.2); Magnesium 2.1 mg/dL (1.6-2.3); Potassium 4.5 mmol/L (3.5-5.1)
[2019-02-06] MEDS: SPIRONOLACTONE 25 MG TAB PO SCH (08:27)
[2019-02-06] MEDS: ATORVASTATIN 40 MG TAB PO SCH (09:43)
[2019-02-06] MEDS: ASPIRIN 81 MG PO SCH (09:43)
[2019-02-06] MEDS: SACUBITRIL/VALSARTAN 24 MG-26 MG TABLET PO SCH ×2 (09:43→19:54)
[2019-02-06] MEDS: SODIUM CHLORIDE 0.9% 1,000 ML IV SCH (13:00)
--- NOTE | 2019-02-06 15:57 | P.PN ---
Subjective Progress Note Date: 02/06/19 This is a 78-year-old gentleman with history of coronary artery bypass graft surgery several years ago, hypertension, hyperlipidemia, current every day smoker, he states that he used to follow with Dr. Mena in the office, had some type of falling out and has not seen him since. He also states that he is followed with the physicians at . His primary care doctor is local. The patient lost his 2-3 weeks ago after being for 51 years. He presents to the hospital on this occasion with symptoms of shortness of breath, positive PND and orthopnea, no significant peripheral edema, no chest discomfort. His chest x-ray on presentation here showed mild cardiomegaly. CTA of the chest was performed, negative for pulmonary embolism, it did reveal an ascending thoracic aortic aneurysm measuring 4.3 cm. His EKG on presentation here showed a sinus bradycardia with first-degree AV block and occasional PVCs right bundle branch block pattern and inferior Q waves. Blood pressure on arrival here 172/88 with a heart rate in the 40s to 50s, 98% on room air. Blood pressure this morning 128/60 with a heart rate in the 70s, 94% on room air. White blood cell count is normal, hemoglobin 15.9, platelet count 187, d-dimer 0.6. Sodium 140, potassium 3.6, BUN 18, creatinine 1.03. Troponin 0.029, 0.100, 0.078. BNP level 4980. Patient denies having any chest discomfort, other than the shortness of breath he states he just did not feel right. Total bilirubin 1.4. Patient was initiated on IV Lasix on arrival here, his weight today is down 1 kg. Echocardiogram with Doppler study was performed which revealed an ejection fraction of 20-25%. The patient is unsure as to whether or not he's been told in the past to have cardiomyopathy, we will try to obtain an old echo from the office in this regard. I did have a discussion with the patient this morning regarding the initiation of Entresto, we will start that today and continue with current dose of IV Lasix. 02/05/2019 Patient seen and examined this morning, weight is down 2 kg today, BUN 32, creatinine 1.5, creatinine was 1.0 yesterday. Blood pressure 113/70 with a heart rate in the 60s, 96% on room air. We will discontinue the IV Lasix and repeat a chest x-ray tomorrow morning. 02/06/2019 Patient seen and examined this morning, his breathing is stable, hemodynamically he is stable. Patient is currently in atrial fibrillation I did have a discussion with him and his daughter today regarding the importance of anticoagulation for stroke prevention. We will start the patient on Eliquis to day, and reinitiate oral Lasix. Plan for possible discharge home in 24 hours Objective - Vital Signs Vital signs: Vital Signs Temp 97.4 F L 02/06/19 08:45 Pulse 47 L 02/06/19 13:00 Resp 16 02/06/19 13:00 BP 139/98 02/06/19 13:00 Pulse Ox 93 L 02/06/19 13:00 Intake & Output 02/05/19 02/06/19 02/06/19 18:59 06:59 18:59 Intake Total 600 197.664 500 Output Total 150 200 Balance 600 47.664 300 Weight 70.8 kg Intake: Intake, IV Titration 197.664 Amount Heparin Sod,Pork in 0.45% 197.664 NaCl 25,000 unit In 0.45 % NaCl 1 250ml.bag @ 12 UNITS/KG/HR 8.52 mls/hr IV .Q24H [facility] Rx#: [id number] Oral 600 500 Output: Urine 150 200 Other: Voiding Method Toilet Toilet Toilet Urinal Urinal Urinal # Voids 1 1 2 # Bowel Movements 1 - Exam PHYSICAL EXAMINATION: GENERAL: 88-year-old gentleman in no acute distress at the time of my examination HEENT: Head is atraumatic, normocephalic. Pupils equal, round. Sclera anicteric. Conjunctiva are clear. Mucous membranes of the mouth are moist. Neck is supple. There is elevated jugular venous pressure. No carotid bruit is heard. HEART EXAMINATION: Heart S1 and S2 with systolic murmur is heard CHEST EXAMINATION: Lungs are clear with improvement in air entry to the bases posteriorly. ABDOMEN: Soft, nontender. Bowel sounds are heard. No organomegaly noted. EXTREMITIES: 2+ peripheral pulses with no evidence of peripheral edema and no calf tenderness noted. NEUROLOGIC patient is awake, alert and oriented 3 . 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 Plan for possible discharge home in 24 hours if stable. DNP note has been reviewed, I agree with a documented findings and plan of care. Patient was seen and examined.
--- NOTE | 2019-02-06 16:13 | XR ---
EXAMINATION TYPE: XR chest 2V DATE OF EXAM: 02/06/2019 COMPARISON: 02/03/2019 HISTORY: Shortness of breath TECHNIQUE: Frontal and lateral views of the chest are obtained. FINDINGS: Scattered senescent parenchymal changes noted. Hyperinflation compatible with COPD. No evidence for infiltrate. No evidence for atelectasis. Heart size is stable. Mediastinal structures are stable and grossly unremarkable. No evidence for hilar prominence. Degenerative changes dorsal spine. IMPRESSION: 1. No evidence for acute pulmonary disease.
[2019-02-06] MEDS: APIXABAN 5 MG TAB PO SCH (19:54)
--- NOTE | 2019-02-06 23:30 | P.PN ---
Progress Note - Text Progress Note Date: 02/06/19 Interval history: This is a patient with known coronary artery disease with a bypass in 1995 who presented with shortness of breath. Had no edema. Admitted with CHF exacerbation. Getting it improved. Patient did go into acute renal failure. Diuretics were temporarily held. Today-breathing is better. Daughter the bedside. Did tolerate some diet. Has been up to the bathroom. Progress review of systems Active Medications Acetaminophen (Tylenol Tab) 500 mg PO Q6H PRN PRN Reason: Pain Apixaban (Eliquis) 5 mg PO BID [facility] Last Admin: 02/06/19 19:54 Dose: 5 mg Documented by: Aspirin (Aspirin) 81 mg PO DAILY [facility] Last Admin: 02/06/19 09:43 Dose: 81 mg Documented by: Atorvastatin Calcium (Lipitor) 40 mg PO DAILY [facility] Last Admin: 02/06/19 09:43 Dose: 40 mg Documented by: Sodium Chloride (Saline 0.9%) 1,000 mls @ 20 mls/hr IV .Q24H [facility] Last Admin: 02/06/19 13:00 Dose: Not Given Documented by: Pantoprazole Sodium (Protonix) 40 mg PO DAILY@0730 [facility] Last Admin: 02/06/19 06:33 Dose: 40 mg Documented by: Sacubitril/Valsartan (Entresto 24 Mg-26 Mg Tablet) 1 each PO BID [facility] Last Admin: 02/06/19 19:54 Dose: 1 each Documented by: Spironolactone (Aldactone) 25 mg PO DAILY [facility] Last Admin: 02/06/19 08:27 Dose: Not Given Documented by: Physical examination: VITAL SIGNS: Recent 0.4, 55, 16, 11 9/68, 97% on room air GENERAL: Sitting at the edge of the bed, breathing comfortably. EYES: Pupils equal. Conjunctiva normal. HEENT: External appearance of nose and ears normal, oral cavity grossly normal decreased hearing. NECK: JVD not raised; masses not palpable. HEART: First and second heart sounds are normal; no edema. LUNGS: Respiratory rate normal; decreased breath sounds. ABDOMEN: Soft, nontender, liver spleen not palpable, no masses palpable. PSYCH: Alert and oriented x3; mood and affect normal. INVESTIGATIONS, reviewed in the clinical context: Potassium 4.5. Bun 42 crit 1.31 2-D echo-EF 20-25%, moderate mitral regurgitation, severe global hypokinesia of the left ventricle Assessment: -Acute on chronic congestive heart failure from systolic dysfunction EF 20-25%, compensated -Moderate mitral regurgitation nonrheumatic -Coronary artery disease prior history of coronary artery bypass -Essential hypertension -Hyperlipidemia -Reportedly from congestive heart failure not acute coronary syndrome -Ascending thoracic aortic aneurysm 4.3 cm -Acute renal failure prerenal from diuresis, started to turn around - Plan: Care was discussed with the patient daughter by the bedside. Lasix had been held. Aldactone was held. Lasix may be resumed today. If patient continues to improve. Hopefully discharge tomorrow.
[2019-02-07 04:03] VITALS: RESP 18
[2019-02-07] MEDS: PANTOPRAZOLE 40 MG TABLET PO SCH (06:32)
[2019-02-07 07:11] LABS: Calcium 9.1 mg/dL (8.4-10.2); Potassium 4.5 mmol/L (3.5-5.1)
[2019-02-07] MEDS: SPIRONOLACTONE 25 MG TAB PO SCH (07:57)
[2019-02-07] MEDS: ASPIRIN 81 MG PO SCH (07:57)
[2019-02-07] MEDS: APIXABAN 5 MG TAB PO SCH (07:57)
[2019-02-07] MEDS: ATORVASTATIN 40 MG TAB PO SCH (07:57)
[2019-02-07] MEDS: SACUBITRIL/VALSARTAN 24 MG-26 MG TABLET PO SCH (07:57)
[2019-02-07 12:11] VITALS: BP 125/84; PULSE 45; TEMP 98.1
--- NOTE | 2019-02-07 15:06 | P.PN ---
Subjective Progress Note Date: 02/07/19 This is a 78-year-old gentleman with history of coronary artery bypass graft surgery several years ago, hypertension, hyperlipidemia, current every day smoker, he states that he used to follow with Dr. Mena in the office, had some type of falling out and has not seen him since. He also states that he is followed with the physicians at [facility]. His primary care doctor is local. The patient lost his 2-3 weeks ago after being for 51 years. He presents to the hospital on this occasion with symptoms of shortness of breath, positive PND and orthopnea, no significant peripheral edema, no chest discomfort. His chest x-ray on presentation here showed mild cardiomegaly. CTA of the chest was performed, negative for pulmonary embolism, it did reveal an ascending thoracic aortic aneurysm measuring 4.3 cm. His EKG on presentation here showed a sinus bradycardia with first-degree AV block and occasional PVCs right bundle branch block pattern and inferior Q waves. Blood pressure on arrival here 172/88 with a heart rate in the 40s to 50s, 98% on room air. Blood pressure this morning 128/60 with a heart rate in the 70s, 94% on room air. White blood cell count is normal, hemoglobin 15.9, platelet count 187, d-dimer 0.6. Sodium 140, potassium 3.6, BUN 18, creatinine 1.03. Troponin 0.029, 0.100, 0.078. BNP level 4980. Patient denies having any chest discomfort, other than the shortness of breath he states he just did not feel right. Total bilirubin 1.4. Patient was initiated on IV Lasix on arrival here, his weight today is down 1 kg. Echocardiogram with Doppler study was performed which revealed an ejection fraction of 20-25%. The patient is unsure as to whether or not he's been told in the past to have cardiomyopathy, we will try to obtain an old echo from the office in this regard. I did have a discussion with the patient this morning regarding the initiation of Entresto, we will start that today and continue with current dose of IV Lasix. 02/05/2019 Patient seen and examined this morning, weight is down 2 kg today, BUN 32, creatinine 1.5, creatinine was 1.0 yesterday. Blood pressure 113/70 with a heart rate in the 60s, 96% on room air. We will discontinue the IV Lasix and repeat a chest x-ray tomorrow morning. 02/06/2019 Patient seen and examined this morning, his breathing is stable, hemodynamically he is stable. Patient is currently in atrial fibrillation I did have a discussion with him and his daughter today regarding the importance of anticoagulation for stroke prevention. We will start the patient on Eliquis to day, and reinitiate oral Lasix. Plan for possible discharge home in 24 hours. 02/07/2019 Patient was seen and examined this morning, feels well, he's been up ambulating without any difficulty. Blood pressure 122/80, heart rate in the 40s, increases up into the mid 50s with ambulation, 97% on room air. Sodium 140, potassium 4.5, BUN 28, creatinine 0.9. Objective - Vital Signs Vital signs: Vital Signs Temp 98.1 F 02/07/19 12:08 Pulse 45 L 02/07/19 12:08 Resp 18 02/07/19 12:08 BP 125/84 02/07/19 12:08 Pulse Ox 97 02/07/19 12:08 Intake & Output 02/06/19 02/07/19 02/07/19 18:59 06:59 18:59 Intake Total 620 500 Output Total 600 250 Balance 20 -250 500 Weight 71.6 kg Intake: Oral 620 500 Output: Urine 600 250 Other: Voiding Method Toilet Toilet Toilet Urinal Urinal Urinal # Voids 2 2 # Bowel Movements 1 - Exam PHYSICAL EXAMINATION: GENERAL: 88-year-old gentleman in no acute distress at the time of my examination HEENT: Head is atraumatic, normocephalic. Pupils equal, round. Sclera anic teric. Conjunctiva are clear. Mucous membranes of the mouth are moist. Neck is supple. There is elevated jugular venous pressure. No carotid bruit is heard. HEART EXAMINATION: Heart S1 and S2 with systolic murmur is heard CHEST EXAMINATION: Lungs are clear with improvement in air entry to the bases posteriorly. ABDOMEN: Soft, nontender. Bowel sounds are heard. No organomegaly noted. EXTREMITIES: 2+ peripheral pulses with no evidence of peripheral edema and no calf tenderness noted. NEUROLOGIC patient is awake, alert and oriented 3 . - Labs CBC & Chem 7: 02/05/19 09:30 02/07/19 06:32 Labs: Abnormal Lab Results - Last 24 Hours (Table) 02/07/19 Range/Units 06:32 BUN 28 H (9-20) mg/dL Assessment and Plan Plan: Assessment and plan #1 systolic congestive heart failure acute on chronic #2 sinus bradycardia, on Coreg 3.125 mg by mouth twice a day #3 history of coronary artery bypass grafting surgery #4 hypertension #5 hyperlipidemia #6 abnormality in troponin, CTA of the chest negative for pulmonary embolism, there is an ascending thoracic aortic aneurysm measuring 4.3 cm #7 paroxysmal atrial fibrillation Plan From cardiology's perspective, patient may be able to be discharged home today on current medications. We'll make him a follow-up appointment in the office post discharge. DNP note has been reviewed, I agree with a documented findings and plan of care. Patient was seen and examined.
[2019-02-07] MEDS ORDERED: FUROSEMIDE 40 MG TAB PO SCH (16:00)
--- NOTE | 2019-02-08 22:00 | P.DS ---
Providers Date of admission: 02/04/19 15:47 Expected date of discharge: 02/07/19 Attending physician: Andrea Birmingham Consults: 02/03/19 12:17 Consult Physician Routine Consulting Provider: Ty Best Consult Reason/Comments: CHF, bradycardia Do you want consulting provider notified?: Yes Primary care physician: Juan Pablo Daly Hospital Course: Hospital course: patient with known coronary artery disease with a bypass in 1995 who presented with shortness of breath. Had no edema. Admitted with CHF exacerbation. improved. Patient did go into acute renal failure. Diuretics were temporarily held.dose adjusted. Today-doing much better. Up to the bathroom. Care was discussed with the patient and the daughter the bedside. creatinine had climbed From 0.89-1.51, did come down to 0.94 , before discharge Discussion and discharge planning more than 35 minutes consultation: Dr. VC Gomez from cardiology Physical examination: VITAL SIGNS: 98, , 16, 125/84, 97% on room air GENERAL: Sitting at the edge of the bed, comfortable EYES: Pupils equal. Conjunctiva normal. HEENT: External appearance of nose and ears normal, oral cavity grossly normal decreased hearing. NECK: JVD not raised; masses not palpable. HEART: First and second heart sounds are normal; no edema. LUNGS: Respiratory rate normal; decreased breath sounds. ABDOMEN: Soft, nontender, liver spleen not palpable, no masses palpable. PSYCH: Alert and oriented x3; mood and affect normal. INVESTIGATIONS, reviewed in the clinical context: Creatinine 0.96 2-D echo-EF 20-25%, moderate mitral regurgitation, severe global hypokinesia of the left ventricle Assessment: -Acute on chronic congestive heart failure from systolic dysfunction EF 20-25%, compensated -Moderate mitral regurgitation nonrheumatic -Coronary artery disease prior history of coronary artery bypass -Essential hypertension -Hyperlipidemia -troponin leak from from congestive heart failure not acute coronary syndrome -Ascending thoracic aortic aneurysm 4.3 cm -Acute renal failure prerenal from diuresis, corrected - disposition: Home Plan - Discharge Summary Discharge Rx Participant: Yes New Discharge Prescriptions: New Spironolactone [Aldactone] 25 mg PO DAILY #30 tab Apixaban [Eliquis] 5 mg PO BID #60 tab Sacubitril/Valsartan [Entresto 24 mg-26 mg Tablet] 1 each PO BID #60 tablet Atorvastatin [Lipitor] 40 mg PO DAILY #30 tab Continue [place]-3 Fatty Acids/Fish Oil [Fish Oil 1,000 mg Softgel] 1 cap PO BID Cyanocobalamin [Vitamin B-12] 500 mcg PO DAILY Cholecalciferol (Vitamin D3) [Vitamin D3] 2,000 unit PO DAILY Aspirin EC [Ecotrin Low Dose] 81 mg PO DAILY Ascorbic Acid [Vitamin C] 500 mg PO DAILY Omeprazole 20 mg PO DAILY Acetaminophen Tab [Tylenol] 500 mg PO Q6H PRN PRN Reason: Pain Potassium Chloride ER [K-Dur 10] 10 meq PO HS Changed Furosemide [Lasix] 40 mg PO BID #60 tab Discontinued Carvedilol [Coreg] 3.125 mg PO BID Discharge Medication List Acetaminophen Tab [Tylenol] 500 mg PO Q6H PRN 02/03/19 [History] Ascorbic Acid [Vitamin C] 500 mg PO DAILY 02/03/19 [History] Aspirin EC [Ecotrin Low Dose] 81 mg PO DAILY 02/03/19 [History] Cholecalciferol (Vitamin D3) [Vitamin D3] 2,000 unit PO DAILY 02/03/19 [History] Cyanocobalamin [Vitamin B-12] 500 mcg PO DAILY 02/03/19 [History] [place]-3 Fatty Acids/Fish Oil [Fish Oil 1,000 mg Softgel] 1 cap PO BID 02/03/19 [History] Omeprazole 20 mg PO DAILY 02/03/19 [History] Potassium Chloride ER [K-Dur 10] 10 meq PO HS 02/03/19 [History] Apixaban [Eliquis] 5 mg PO BID #60 tab 02/07/19 [Rx] Atorvastatin [Lipitor] 40 mg PO DAILY #30 tab 02/07/19 [Rx] Furosemide [Lasix] 40 mg PO BID #60 tab 02/07/19 [Rx] Sacubitril/Valsartan [Entresto 24 mg-26 mg Tablet] 1 each PO BID #60 tablet 02/07/19 [Rx] Spironolactone [Aldactone] 25 mg PO DAILY #30 tab 02/07/19 [Rx] Follow up Appointment(s)/Referral(s): Juan Pablo Daly MD [Primary Care Provider] - 02/11/19 1:00 pm Oliver Villalobos MD [STAFF PHYSICIAN] - 02/14/19 10:15 am Ambulatory/Diagnostic Orders: Basic Metabolic Panel [LAB.AMB] Time Frame: 5 Days, Location: None Selected Patient Instructions/Handouts: A-fib (Atrial Fibrillation) (DC), Heart Healthy Diet (DC), Safe Use of Anticoagulants (DC) Activity/Diet/Wound Care/Special Instructions: CHF 1. Weigh yourself every morning after you urinate. If you gain 2-3 pounds overnight or 5 pounds in one week, call your primary physician for guidance on your medications. Keep a log of your weights. 2. Avoid salt, or foods with hidden salt. Extra salt makes your heart work harder and traps the fluid in your body for longer. 3. Take all of your medications as directed, especially your water pills. NEVER skip a dose. 4. Elevate your legs when you are not up moving around to help with circulation and prevent swelling. 5. Call your physician if you notice any extra swelling in your legs, ankles, feet or abdomen, if you have a new dry cough, if your shortness of breath worsens with activity or at rest, or if you feel more fatigued. Check BMP in 5 days Discharge Disposition: HOME SELF-CARE
== END 2019-02-07 16:11 | disposition home or self-care (01) | DRG 292 ==
LOC: EC 09:01 → 3SCARD 12:17 → OBSVTOIN 02-04 15:47
PROVIDERS: ADMIT Hospitalist; ATTEND Hospitalist
DX: I11.0 Hypertensive heart disease with heart failure (principal); N17.9 Acute kidney failure, unspecified; F17.200 Nicotine dependence, unspecified, uncomplicated; I44.0 Atrioventricular block, first degree; I50.23 Acute on chronic systolic (congestive) heart failure; I45.10 Unspecified right bundle-branch block; E78.5 Hyperlipidemia, unspecified; I48.0 Paroxysmal atrial fibrillation; I08.3 Combined rheumatic disorders of mitral, aortic and tricuspid valves; I25.10 Atherosclerotic heart disease of native coronary artery without angina pectoris; T50.1X5A Adverse effect of loop [high-ceiling] diuretics, initial encounter; R00.1 Bradycardia, unspecified; I71.2 Thoracic aortic aneurysm, without rupture; Z95.1 Presence of aortocoronary bypass graft; Z79.01 Long term (current) use of anticoagulants; Z79.82 Long term (current) use of aspirin; Z79.899 Other long term (current) drug therapy; Z82.49 Family history of ischemic heart disease and other diseases of the circulatory system
CPT/HCPCS: 36415; 71046; 71275; 80048; 80053; 82550; 83735; 83880; 84484; 85025; 85379; 85610; 85730; 93005; 93306; 96374; 99285

== ENCOUNTER 2019-04-06 12:04 | Inpatient (IN) | payer MEDICARE, BC ==
[2019-04-06 13:16] LABS: Basophils # (A) 0.1 k/uL (0-0.2); Basophils % (A) 1 %; Eosinophils # (A) 0.2 k/uL (0-0.7); Eosinophils % (A) 3 %; Lymphocytes # (A) 0.8 k/uL (1.0-4.8); Lymphocytes % (A) 12 %; MCH 30.2 pg (25.0-35.0); MCHC 34.3 g/dL (31.0-37.0); Mean Platelet Volume 7.8; Monocytes # (A) 0.3 k/uL (0-1.0); Monocytes % (A) 5 %; Neutrophils # (A) 5.3 k/uL (1.3-7.7); Neutrophils % (A) 77 %; Platelet Count 206 k/uL (150-450); RBC 4.66 m/uL (4.30-5.90); RDW 14.1 % (11.5-15.5); WBC 6.8 k/uL (3.8-10.6)
[2019-04-06 13:17] LABS: Albumin 4.4 g/dL (3.5-5.0); Calcium 9.4 mg/dL (8.4-10.2); Magnesium 2.1 mg/dL (1.6-2.3); Potassium 4.3 mmol/L (3.5-5.1); Total Protein 7.2 g/dL (6.3-8.2)
[2019-04-06 13:18] LABS: HGB 14.1 gm/dL (13.0-17.5)
[2019-04-06 13:28] LABS: Partial Thromboplastin Time 25.5 sec (22.0-30.0); Prothrombin Time 10.4 sec (9.0-12.0)
--- NOTE | 2019-04-06 13:34 | ED ---
SOB HPI - General Chief Complaint: Shortness of Breath Stated Complaint: SOB Source: patient Mode of arrival: ambulatory Limitations: no limitations - History of Present Illness Initial Comments: The patient is a 78 year old male past history of congestive heart failure, coronary artery bypass grafting in 1995% the emergency room with reported shortness of breath. He states that his symptoms started this morning. It awoke him from sleep. States that he was having difficulty catching his breath. Oxygen at home. He also has a nonproductive cough. No history of COPD or a sthma. Patient recently diagnosed with CHF one month ago and was hospitalized for a week. He is placed on several new medications. He is taking his medications as directed 40 mg twice daily. He is also taking Eliquis. Denies any missed doses of medications. No lower extremity edema. Denies calf pain or swelling. No history of DVT or PE. He denies any chest pain. Does admit to exertional shortness of breath. Patient became concerned and therefore brought himself the emergency room for evaluation. He states maybe related from the car into the hospital that his breathing felt better. He denies smoking. No history of drug use. No ripping or tearing sensation to his back. Denies any abdominal pain or changes in his bowel or bladder habits. There are no alleviating, precipitating or modifying factors - Related Data Home Medications Medication Instructions Recorded Confirmed Acetaminophen Tab [Tylenol] 500 mg PO Q6H PRN 02/03/19 04/06/19 Ascorbic Acid [Vitamin C] 500 mg PO DAILY 02/03/19 04/06/19 Aspirin EC [Ecotrin Low Dose] 81 mg PO DAILY 02/03/19 04/06/19 Cholecalciferol (Vitamin D3) 2,000 unit PO DAILY 02/03/19 04/06/19 [Vitamin D3] Cyanocobalamin [Vitamin B-12] 500 mcg PO DAILY 02/03/19 04/06/19 Harm[place]-3 Fatty Acids/Fish Oil [Fish 1 cap PO BID 02/03/19 04/06/19 Oil 1,000 mg Softgel] Omeprazole 20 mg PO DAILY 02/03/19 04/06/19 Potassium Chloride ER [K-Dur 10] 10 meq PO HS 02/03/19 04/06/19 Sacubitril/Valsartan [Entresto 24 1 tab PO BID 04/06/19 04/06/19 mg-26 mg Tablet] Previous Rx's Medication Instructions Recorded Apixaban [Eliquis] 5 mg PO BID #60 tab 02/07/19 Atorvastatin [Lipitor] 40 mg PO DAILY #30 tab 02/07/19 Furosemide [Lasix] 40 mg PO BID #60 tab 02/07/19 Spironolactone [Aldactone] 25 mg PO DAILY #30 tab 02/07/19 Allergies Allergy/AdvReac Type Severity Reaction Status Date / Time No Known Allergies Allergy Verified 04/06/19 17:25 Review of Systems ROS Statement: Those systems with pertinent positive or pertinent negative responses have been documented in the HPI. ROS Other: All systems not noted in ROS Statement are negative. Past Medical History Past Medical History: Coronary Artery Disease (CAD), Heart Failure History of Any Multi-Drug Resistant Organisms: None Reported Past Surgical History: Coronary Bypass/CABG Additional Past Surgical History / Comment(s): TIMUR in 1995 Past Anesthesia/Blood Transfusion Reactions: No Reported Reaction Past Psychological History: No Psychological Hx Reported Smoking Status: Never smoker Past Alcohol Use History: None Reported Past Drug Use History: None Reported - Past Family History Father Family Medical History: Coronary Artery Disease (CAD) Mother Family Medical History: Coronary Artery Disease (CAD) General Exam Limitations: no limitations Course Vital Signs 04/06/19 04/06/19 04/06/19 12:05 12:58 13:30 Temperature 97.8 F Pulse Rate 51 L 72 Respiratory 16 16 16 Rate Blood Pressure 118/71 103/56 O2 Sat by Pulse 98 98 Oximetry 04/06/19 04/06/19 04/06/19 14:54 15:43 17:06 Temperature Pulse Rate 70 55 L 64 Respiratory 18 Rate Blood Pressure 106/63 97/69 O2 Sat by Pulse 98 96 Oximetry 04/06/19 04/06/19 17:14 17:16 Temperature Pulse Rate 68 50 L Respiratory 18 Rate Blood Pressure 101/64 O2 Sat by Pulse 97 Oximetry Medical Decision Making - Medical Decision Making Upon arrival the patient was placed into room 9. A thorough history and physical exam was performed. A 12-lead EKG was performed which is compared to patient's previous EKG and appears similar. I did recommend laboratory studies and a chest x-ray. CBC is unremarkable. Coagulation studies show a d-dimer of 0.44. CMP is unremarkable. Troponin is 0.025. BNP 626. Chest x-ray demonstrates no active intrathoracic disease. I discussed these results with the patient. As he is reporting shortness of breath and he does have significant ectopy on bedside monitor and EKG I did recommend hospital admission for telemetry observation. The patient did agree to this. I call discuss case with Dr. [place] accepted admission. Patient home medications will be ordered. He remained in stable condition and was transported to the floor - Lab Data Result diagrams: 04/06/19 12:50 04/06/19 12:50 Lab Results 04/06/19 04/06/19 04/06/19 Range/Units 12:50 12:50 12:50 WBC 6.8 (3.8-10.6) k/uL RBC 4.66 (4.30-5.90) m/uL Hgb 14.1 D (13.0-17.5) gm/dL Hct 41.0 (39.0-53.0) % MCV 88.0 (80.0-100.0) fL MCH 30.2 (25.0-35.0) pg MCHC 34.3 (31.0-37.0) g/dL RDW 14.1 (11.5-15.5) % Plt Count 206 (150-450) k/uL Neutrophils % 77 % Lymphocytes % 12 % Monocytes % 5 % Eosinophils % 3 % Basophils % 1 % Neutrophils # 5.3 (1.3-7.7) k/uL Lymphocytes # 0.8 L (1.0-4.8) k/uL Monocytes # 0.3 (0-1.0) k/uL Eosinophils # 0.2 (0-0.7) k/uL Basophils # 0.1 (0-0.2) k/uL PT (9.0-12.0) sec INR (<1.2) APTT (22.0-30.0) sec D-Dimer (<0.60) mg/L FEU Sodium 137 (137-145) mmol/L Potassium 4.3 (3.5-5.1) mmol/L Chloride 104 (98-107) mmol/L Carbon Dioxide 23 (22-30) mmol/L Anion Gap 10 mmol/L BUN 30 H (9-20) mg/dL Creatinine 1.12 (0.66-1.25) mg/dL Est GFR (CKD-EPI)AfAm 74 (>60 ml/min/1.73 sqM) Est GFR (CKD-EPI)NonAf 64 (>60 ml/min/1.73 sqM) Glucose 129 H (74-99) mg/dL Plasma Lactic Acid Perez 1.4 (0.7-2.0) mmol/L Calcium 9.4 (8.4-10.2) mg/dL Magnesium 2.1 (1.6-2.3) mg/dL Total Bilirubin 1.0 (0.2-1.3) mg/dL AST 22 (17-59) U/L ALT 13 (4-49) U/L Alkaline Phosphatase 56 (38-126) U/L Troponin I (0.000-0.034) ng/mL NT-Pro-B Natriuret Pep pg/mL Total Protein 7.2 (6.3-8.2) g/dL Albumin 4.4 (3.5-5.0) g/dL 04/06/19 04/06/19 04/06/19 Range/Units 12:50 12:50 12:50 WBC (3.8-10.6) k/uL RBC (4.30-5.90) m/uL Hgb (13.0-17.5) gm/dL Hct (39.0-53.0) % MCV (80.0-100.0) fL MCH (25.0-35.0) pg MCHC (31.0-37.0) g/dL RDW (11.5-15.5) % Plt Count (150-450) k/uL Neutrophils % % Lymphocytes % % Monocytes % % Eosinophils % % Basophils % % Neutrophils # (1.3-7.7) k/uL Lymphocytes # (1.0-4.8) k/uL Monocytes # (0-1.0) k/uL Eosinophils # (0-0.7) k/uL Basophils # (0-0.2) k/uL PT 10.4 (9.0-12.0) sec INR 1.0 (<1.2) APTT 25.5 (22.0-30.0) sec D-Dimer (<0.60) mg/L FEU Sodium (137-145) mmol/L Potassium (3.5-5.1) mmol/L Chloride (98-107) mmol/L Carbon Dioxide (22-30) mmol/L Anion Gap mmol/L BUN (9-20) mg/dL Creatinine (0.66-1.25) mg/dL Est GFR (CKD-EPI)AfAm (>60 ml/min/1.73 sqM) Est GFR (CKD-EPI)NonAf (>60 ml/min/1.73 sqM) Glucose (74-99) mg/dL Plasma Lactic Acid Perez (0.7-2.0) mmol/L Calcium (8.4-10.2) mg/dL Magnesium (1.6-2.3) mg/dL Total Bilirubin (0.2-1.3) mg/dL AST (17-59) U/L ALT (4-49) U/L Alkaline Phosphatase (38-126) U/L Troponin I 0.025 (0.000-0.034) ng/mL NT-Pro-B Natriuret Pep 626 pg/mL Total Protein (6.3-8.2) g/dL Albumin (3.5-5.0) g/dL 04/06/19 Range/Units 12:50 WBC (3.8-10.6) k/uL RBC (4.30-5.90) m/uL Hgb (13.0-17.5) gm/dL Hct (39.0-53.0) % MCV (80.0-100.0) fL MCH (25.0-35.0) pg MCHC (31.0-37.0) g/dL RDW (11.5-15.5) % Plt Count (150-450) k/uL Neutrophils % % Lymphocytes % % Monocytes % % Eosinophils % % Basophils % % Neutrophils # (1.3-7.7) k/uL Lymphocytes # (1.0-4.8) k/uL Monocytes # (0-1.0) k/uL Eosinophils # (0-0.7) k/uL Basophils # (0-0.2) k/uL PT (9.0-12.0) sec INR (<1.2) APTT (22.0-30.0) sec D-Dimer 0.44 (<0.60) mg/L FEU Sodium (137-145) mmol/L Potassium (3.5-5.1) mmol/L Chloride (98-107) mmol/L Carbon Dioxide (22-30) mmol/L Anion Gap mmol/L BUN (9-20) mg/dL Creatinine (0.66-1.25) mg/dL Est GFR (CKD-EPI)AfAm (>60 ml/min/1.73 sqM) Est GFR (CKD-EPI)NonAf (>60 ml/min/1.73 sqM) Glucose (74-99) mg/dL Plasma Lactic Acid Perez (0.7-2.0) mmol/L Calcium (8.4-10.2) mg/dL Magnesium (1.6-2.3) mg/dL Total Bilirubin (0.2-1.3) mg/dL AST (17-59) U/L ALT (4-49) U/L Alkaline Phosphatase (38-126) U/L Troponin I (0.000-0.034) ng/mL NT-Pro-B Natriuret Pep pg/mL Total Protein (6.3-8.2) g/dL Albumin (3.5-5.0) g/dL - EKG Data EKG Comments: EKG demonstrates a sinus rhythm with multiple PVCs. Rate of 76. QRS 134. QTC 506. Right bundle branch block. EKG is compared to old and is the same Disposition Clinical Impression: Congestive heart failure, Bradycardia Disposition: ADMITTED IP TO THIS [facility] Condition: Stable Is patient prescribed a controlled substance at d/c from ED?: No Decision to Admit Reason: Admit from EC Decision Date: 04/06/19 Decision Time: 16:42
--- NOTE | 2019-04-06 13:39 | XR ---
EXAMINATION TYPE: XR chest 2V DATE OF EXAM: 04/06/2019 HISTORY: difficulty breathing. REFERENCE: Previous study dated 02/06/2019. FINDINGS: There has been a previous midline sternotomy. The lungs are clear. Pleural spaces are clear. Size upper limits of normal. IMPRESSION: NO ACTIVE INTRATHORACIC DISEASE.
[2019-04-06] MEDS ORDERED: NALOXONE 0.4 MG/ML 1 ML VIAL IV PRN (16:19)
[2019-04-06] MEDS ORDERED: IPRATROPIUM-ALBUTEROL 3 ML NEB INHALATION STA (16:19)
[2019-04-06] MEDS ORDERED: ACETAMINOPHEN TAB 500 MG TAB PO PRN (21:18)
[2019-04-06] MEDS ORDERED: APIXABAN 5 MG TAB PO SCH (21:30)
[2019-04-06] MEDS: APIXABAN 5 MG TAB PO SCH (23:04)
[2019-04-06] MEDS: SACUBITRIL/VALSARTAN 24 MG-26 MG TABLET PO SCH (23:04)
[2019-04-06] MEDS: POTASSIUM CHLORIDE ER 10 MEQ TAB.ER.PRT PO SCH (23:04)
[2019-04-07 00:34] LABS: Magnesium 2.3 mg/dL (1.6-2.3); Potassium 4.4 mmol/L (3.5-5.1)
[2019-04-07 08:10] LABS: Calcium 9.7 mg/dL (8.4-10.2); Potassium 5.3 mmol/L (3.5-5.1)
[2019-04-07 08:15] LABS: Basophils % (A) 0 %; Eosinophils # (A) 0.2 k/uL (0-0.7); Eosinophils % (A) 3 %; HCT 41.5 % (39.0-53.0); HGB 14.2 gm/dL (13.0-17.5); Lymphocytes # (A) 1.5 k/uL (1.0-4.8); Lymphocytes % (A) 22 %; MCH 30.3 pg (25.0-35.0); MCHC 34.3 g/dL (31.0-37.0); MCV 88.3 fL (80.0-100.0); Mean Platelet Volume 7.3; Monocytes # (A) 0.4 k/uL (0-1.0); Monocytes % (A) 6 %; Neutrophils # (A) 4.5 k/uL (1.3-7.7); Neutrophils % (A) 66 %; Platelet Count 215 k/uL (150-450); RDW 14.1 % (11.5-15.5); WBC 6.8 k/uL (3.8-10.6)
[2019-04-07] MEDS ORDERED: CYANOCOBALAMIN 500 MCG TAB PO SCH (09:00)
[2019-04-07] MEDS ORDERED: SPIRONOLACTONE 25 MG TAB PO SCH (09:00)
[2019-04-07] MEDS ORDERED: ASCORBIC ACID 500 MG TAB PO SCH (09:00)
[2019-04-07] MEDS ORDERED: NON FORMULARY DRUG (Aspirin Ec 81 MG) PO SCH (09:00)
[2019-04-07] MEDS ORDERED: ATORVASTATIN 40 MG TAB PO SCH (09:00)
[2019-04-07] MEDS: CHOLECALCIFEROL 1,000 UNIT TAB PO SCH (10:11)
[2019-04-07] MEDS: ASPIRIN 81 MG PO SCH (10:12)
[2019-04-07] MEDS: FUROSEMIDE 40 MG TAB PO SCH ×2 (10:12→15:48)
[2019-04-07] MEDS: PANTOPRAZOLE 40 MG TABLET PO SCH ×3 (10:12→10:13)
[2019-04-07] MEDS: CYANOCOBALAMIN 500 MCG TAB PO SCH (10:12)
[2019-04-07] MEDS: ATORVASTATIN 40 MG TAB PO SCH (10:12)
[2019-04-07] MEDS: APIXABAN 5 MG TAB PO SCH ×2 (10:12→20:03)
[2019-04-07] MEDS: ASCORBIC ACID 500 MG TAB PO SCH (10:12)
[2019-04-07] MEDS: SACUBITRIL/VALSARTAN 24 MG-26 MG TABLET PO SCH ×2 (10:19→20:10)
[2019-04-07 14:56] VITALS: BMI 28.1
[2019-04-07] MEDS ORDERED: RX INFO: IV CONTRAST WAS GIVEN 1 EACH MISC MISCELLANE PRN (16:59)
--- NOTE | 2019-04-07 16:59 | P.HPIM ---
History of Present Illness H&P Date: 04/07/19 Chief Complaint: Short of breath History of presenting complaint 78-year-old patient of Dr. Daly, chronic stable medical conditions include moderate mitral regurgitation, coronary artery disease bypass, essential hypertension, hyperlipidemia, ascending thoracic aortic aneurysm 4.3 cm, EF of 20/25 percent.: Patient presents 1 day of increasing shortness of breath. No orthopnea. No edema. No cough or sputum. No fever no chills. Patient is concerned about his CHF has decided to come in. Past medical history to include: Moderate mitral regurgitation, coronary artery disease and history of bypass, essential hypertension, hyperlipidemia, ascending thoracic aortic aneurysm 4.3; mood, CHF EF 20-45% Review of systems: GEN.: Tired EYES: [None] HEENT: Decreased hearing] NECK: [None] RESPIRATORY: [As above] CARDIOVASCULAR: [None] GASTROINTESTINAL: [None] GENITOURINARY: [None] MUSCULOSKELETAL: [Joint pains] LYMPHATICS: [None] HEMATOLOGICAL: [None] PSYCHIATRY: [None] NEUROLOGICAL: [None] Social history: No smoking, no alcohol. Physical examination: VITAL SIGNS: Afebrile, 51, 16, 20988, 98% room air GENERAL: Sitting up, slightly tired EYES: Pupils equal. Conjunctiva normal. HEENT: External appearance of nose and ears normal, oral cavity grossly normal decreased hearing. NECK: JVD possibly raised; masses not palpable. HEART: First and second heart sounds are normal; no edema. LUNGS: Respiratory rate normal; decreased breath sounds. ABDOMEN: Soft, nontender, liver spleen not palpable, no masses palpable. PSYCH: Alert and oriented x3; mood and affect normal. INVESTIGATIONS, reviewed in the clinical context: White count 6.8 hemoglobin 14.1 platelets 206 potassium 4.3 creatinine 1.12 Troponin I 0.0-5-0.044-0.047 ProBNP 626 EKG tracing personally reviewed by me-PVCs multiple Chest x-ray film personally reviewed by me-cardiomegaly, no obvious venous prominence Assessment: -Acute shortness of breath. In a patient shows proBNP is Dr. elevated significantly and the lung checks x-ray appears to be relatively clear. We'll like to rule out PE -Rule out acute coronary syndrome, given troponin leak -chronic congestive heart failure from systolic dysfunction EF 20-25%, -Moderate mitral regurgitation nonrheumatic -Coronary artery disease prior history of coronary artery bypass -Essential hypertension -Hyperlipidemia -Ascending thoracic aortic aneurysm 4.3 cm Plan: Cardiology being consulted. Home medications reviewed. We'll order CT chest to rule out PE. Care was discussed with the patient question were answered. - Past Medical History Past Medical History: Coronary Artery Disease (CAD), Heart Failure History of Any Multi-Drug Resistant Organisms: None Reported Past Surgical History: Coronary Bypass/CABG Additional Past Surgical History / Comment(s): TIMUR in 1995 Past Anesthesia/Blood Transfusion Reactions: No Reported Reaction Past Psychological History: No Psychological Hx Reported Smoking Status: Never smoker Past Alcohol Use History: None Reported Past Drug Use History: None Reported - Past Family History Father Family Medical History: Coronary Artery Disease (CAD) Mother Family Medical History: Coronary Artery Disease (CAD) Medications and Allergies Home Medications Medication Instructions Recorded Confirmed Type Acetaminophen Tab [Tylenol] 500 mg PO Q6H PRN 02/03/19 04/06/19 History Ascorbic Acid [Vitamin C] 500 mg PO DAILY 02/03/19 04/06/19 History Aspirin EC [Ecotrin Low Dose] 81 mg PO DAILY 02/03/19 04/06/19 History Cholecalciferol (Vitamin D3) 2,000 unit PO DAILY 02/03/19 04/06/19 History [Vitamin D3] Cyanocobalamin [Vitamin B-12] 500 mcg PO DAILY 02/03/19 04/06/19 History V[place]-3 Fatty Acids/Fish Oil [Fish 1 cap PO BID 02/03/19 04/06/19 History Oil 1,000 mg Softgel] Omeprazole 20 mg PO DAILY 02/03/19 04/06/19 History Potassium Chloride ER [K-Dur 10] 10 meq PO HS 02/03/19 04/06/19 History Apixaban [Eliquis] 5 mg PO BID #60 tab 02/07/19 04/06/19 Rx Atorvastatin [Lipitor] 40 mg PO DAILY #30 tab 02/07/19 04/06/19 Rx Furosemide [Lasix] 40 mg PO BID #60 tab 02/07/19 04/06/19 Rx Spironolactone [Aldactone] 25 mg PO DAILY #30 tab 02/07/19 04/06/19 Rx Sacubitril/Valsartan [Entresto 24 1 tab PO BID 04/06/19 04/06/19 History mg-26 mg Tablet] Allergies Allergy/AdvReac Type Severity Reaction Status Date / Time No Known Allergies Allergy Verified 04/06/19 17:25 Physical Exam Vitals: Vital Signs Temp Pulse Pulse Resp BP BP Pulse Ox 04/07/19 08:40 61 12 04/07/19 07:00 97.6 F 61 12 114/53 92 L 04/07/19 02:56 97.8 F 64 12 117/64 93 L 04/07/19 00:00 40 L 04/06/19 17:16 50 L 18 101/64 97 04/06/19 17:14 68 04/06/19 17:06 64 04/06/19 15:43 55 L 97/69 96 04/06/19 14:54 70 18 106/63 98 04/06/19 13:30 97.8 F 72 16 103/56 98 04/06/19 12:58 16 Intake and Output 04/06/19 04/07/19 04/07/19 22:59 06:59 14:59 Intake Total 480 480 Balance 480 480 Intake: Oral 480 480 Other: # Voids 1 2 Weight 74.389 kg Results CBC & Chem 7: 04/07/19 07:34 04/07/19 07:34 Labs: Abnormal Lab Results - Last 24 Hours (Table) 04/06/19 04/06/19 04/06/19 Range/Units 12:50 12:50 19:21 Lymphocytes # 0.8 L (1.0-4.8) k/uL Sodium (137-145) mmol/L Potassium (3.5-5.1) mmol/L BUN 30 H (9-20) mg/dL Glucose 129 H (74-99) mg/dL Troponin I 0.044 H* (0.000-0.034) ng/mL 04/06/19 04/07/19 Range/Units 23:57 07:34 Lymphocytes # (1.0-4.8) k/uL Sodium 136 L (137-145) mmol/L Potassium 5.3 H (3.5-5.1) mmol/L BUN 27 H (9-20) mg/dL Glucose 120 H (74-99) mg/dL Troponin I 0.047 H* (0.000-0.034) ng/mL Thrombosis Risk Factor Assmnt - Choose All That Apply Any of the Below Risk Factors Present?: No Other Risk Factors: Yes Each Risk Factor Represents 3 Points: Age 75 years or older Other congenital or acquired thrombophilia - If yes, enter type in comment: No Thrombosis Risk Factor Assessment Total Risk Factor Score: 3 Thrombosis Risk Factor Assessment Level: Moderate Risk
--- NOTE | 2019-04-07 17:54 | CT ---
EXAMINATION TYPE: CT angio chest DATE OF EXAM: 04/07/2019 COMPARISON: 04/06/2019 chest x-ray and CT dated 02/03/2019 HISTORY: Rule out PE. Shortness of breath CT DLP: 375.1 mGycm. Automated Exposure Control for Dose Reduction was Utilized. CONTRAST: CTA scan of the thorax is performed with IV Contrast, patient injected with 100 mL of Isovue 370, pul monary embolism protocol. MIP Images are created on CT scanner and reviewed. FINDINGS: LUNGS: Atelectasis is seen lung bases. Motion artifact slightly obscures evaluation and limits evalua tion for subcentimeter pulmonary nodule. The lungs are grossly clear, there is no concerning parenchy mal mass or nodule identified. There is no pleural effusion or pneumothorax seen. The tracheobronc hial tree is patent. MEDIASTINUM: There is satisfactory enhancement of the pulmonary artery and its branches, there is no CT evidence for pulmonary embolism. There are no greater than 1 cm hilar or mediastinal lymph nodes. Moderate atheromatous changes are seen of the thoracic aorta and advanced atheromatous changes of th e upper abdominal aorta and its visualized portions. Mild aneurysmal dilatation of the ascending thor acic aorta measuring 4.2 cm. Aortic root is also dilated also measuring 4.2 cm. Tortuosity of the ana cending thoracic aorta. No pericardial effusion is seen. Very minimally is redemonstrated. Post CABG changes are seen of the chest. IMPRESSION: 1. No evidence of pulmonary embolus. 2. Ascending thoracic aortic aneurysm and dilatation of the aortic root.
[2019-04-07] MEDS: POTASSIUM CHLORIDE ER 10 MEQ TAB.ER.PRT PO SCH (20:00)
--- NOTE | 2019-04-08 00:36 | CONS ---
CONSULTATION 78-year-old gentleman with history of coronary artery disease status post CABG, ischemic cardiomyopathy, chronic systolic heart failure, history of bradycardia and atrial fibrillation, who comes to the hospital complaining of feeling fatigued, tired. He lives very close to hospital. He thought let me go to the Hospital and get myself checked out. He was advised to undergo AICD in the past. We opted not to, but he is more agreeable now. His rhythm strips show that he is in sinus rhythm with extreme bradycardia and quite a few PVCs and nonconducted PACs. The patient needs an AICD and will get it done on this admission as we are not able to give him a life-saving beta blockers because of the bradycardia. PAST MEDICAL HISTORY: Significant for CAD, status post CABG, ischemic cardiomyopathy with severe LV dysfunction, atrial fibrillation. MEDICATIONS: Medications at home included Aldactone, Entresto, K-Dur, Lasix, Lipitor, aspirin and Eliquis. ALLERGIES: There are no known drug allergies. FAMILY HISTORY: Negative for premature coronary artery disease. SOCIAL HISTORY: Negative for current smoking, EtOH abuse or drug abuse. REVIEW OF SYSTEMS: HEENT is unremarkable. Cardiac as described above. Respiratory as described above. GI negative. Genitourinary: Negative. ALLERGY none. SKIN negative. MUSCULOSKELETAL negative. ENDOCRINE negative. DERM negative. CONSTITUTIONAL negative. ONCOLOGICAL negative. Rest of the system review is not relevant. PHYSICAL EXAMINATION: On exam, patient is comfortable at rest. Heart rate is 60 beats per minute. Blood pressure is 114/50. Respirations 18. Chest exam reveals good air entry bilaterally. Heart exam reveals first and second heart sounds. Systolic murmur at the left lower sternal border. Abdomen is soft. Exam of extremities did not reveal any edema. Peripheral pulses are felt. LAB: Show that the troponins are slightly elevated. Potassium is high at 5.3. ASSESSMENT: 1. Chronic systolic heart failure. 2. Hyperkalemia. 3. Persistent atrial fibrillation. 4. Frequent ventricular ectopy. 5. Bradycardia. PLAN: Stop the Aldactone given the hyperkalemia that the patient had. We will try and get the AICD done on this admission so that we can resume the Coreg. MMODL / IJN: [id number] /
[2019-04-08 06:57] LABS: Calcium 9.9 mg/dL (8.4-10.2); Potassium 4.6 mmol/L (3.5-5.1)
[2019-04-08] MEDS: PANTOPRAZOLE 40 MG TABLET PO SCH (08:55)
[2019-04-08] MEDS: ASPIRIN 81 MG PO SCH (08:55)
[2019-04-08] MEDS: ATORVASTATIN 40 MG TAB PO SCH (08:55)
[2019-04-08] MEDS: SACUBITRIL/VALSARTAN 24 MG-26 MG TABLET PO SCH ×2 (08:55→20:50)
[2019-04-08] MEDS: FUROSEMIDE 40 MG TAB PO SCH ×2 (08:55→16:52)
[2019-04-08] MEDS: CYANOCOBALAMIN 500 MCG TAB PO SCH (12:29)
[2019-04-08] MEDS: ASCORBIC ACID 500 MG TAB PO SCH (12:29)
[2019-04-08] MEDS: CHOLECALCIFEROL 1,000 UNIT TAB PO SCH (12:29)
[2019-04-08] MEDS: APIXABAN 5 MG TAB PO SCH ×2 (12:30→20:50)
--- NOTE | 2019-04-08 14:33 | P.PN ---
Subjective Progress Note Date: 04/08/19 Socrates is a pleasant 78-year-old gentleman with history of coronary artery disease and prior bypass surgery, ischemic cardio myopathy, chronic systolic congestive heart failure, history of bradycardia and paroxysmal atrial fibrillation presented to the hospital with symptoms of feeling fatigued and tired. He was advised in the past undergo implantation of AICD but refused, at this point he is now more agreeable. He is quite bradycardic on the monitor, at times only. To have PVCs. Consultation was requested with Dr. Alatorre for implantation of an AICD. Blood pressure 110/60 with a heart rate in the 40s to 50s, 96% on room air. Sodium 136, potassium 4.6, BUN 32, creatinine 1.3. Objective - Vital Signs Vital signs: Vital Signs Temp 97.6 F 04/08/19 12:00 Pulse 51 L 04/08/19 12:00 Resp 16 04/08/19 12:00 BP 99/55 04/08/19 12:00 Pulse Ox 96 04/08/19 12:00 Intake & Output 04/07/19 04/08/19 04/08/19 18:59 06:59 18:59 Intake Total 240 480 Balance 240 480 Weight 74.389 kg 70 kg Intake: Oral 240 480 Other: # Voids 3 1 1 - Exam PHYSICAL EXAMINATION: GENERAL: 78-year-old gentleman in no acute distress at the time of my examination HEENT: Head is atraumatic, normocephalic. Pupils equal, round. Sclera anicteric. Conjunctiva are clear. Mucous membranes of the mouth are moist. Neck is supple. There is no elevated jugular venous pressure. No carotid bruit is heard. HEART EXAMINATION: S1 and S2 irregularly irregular a systolic murmur is heard CHEST EXAMINATION: Lungs are clear to auscultation and precussion. No chest wall tenderness is noted on palpation or with deep breathing. ABDOMEN: Soft, nontender. Bowel sounds are heard. No organomegaly noted. EXTREMITIES: 2+ peripheral pulses with no evidence of peripheral edema and no calf tenderness noted. NEUROLOGIC patient is awake, alert and oriented X3. . - Labs CBC & Chem 7: 04/07/19 07:34 04/08/19 06:02 Labs: Abnormal Lab Results - Last 24 Hours (Table) 04/08/19 Range/Units 06:02 Sodium 136 L (137-145) mmol/L BUN 32 H (9-20) mg/dL Creatinine 1.33 H (0.66-1.25) mg/dL Glucose 105 H (74-99) mg/dL Assessment and Plan Plan: Assessment and plan #1 systolic congestive heart failure acute on chronic #2 paroxysmal atrial fibrillation #3 bradycardia, frequent ventricular ectopy #4 coronary artery disease with prior bypass surgery #5 ischemic cardiomyopathy with severe LV dysfunction #6Hypertension #7 hyperlipidemia Plan We will consult with Dr. Alatorre to see the patient regarding implantation of AICD. Continue his current medications. DNP note has been reviewed, I agree with a documented findings and plan of care. Patient was seen and examined.
--- NOTE | 2019-04-08 14:41 | P.PN ---
Progress Note - Text Progress Note Date: 04/08/19 Chief Complaint: Short of breath History of presenting complaint 78-year-old patient of Dr. Daly, chronic stable medical conditions include moderate mitral regurgitation, coronary artery disease bypass, essential hypertension, hyperlipidemia, ascending thoracic aortic aneurysm 4.3 cm, EF of 20/25 percent.: Patient presents 1 day of increasing shortness of breath. No orthopnea. No edema. No cough or sputum. No fever no chills. Patient is concerned about his CHF has decided to come in. PE was ruled out. Cardiology looking at placing an AICD. No obvious CHF exacerbation. Today-sitting up., Comfortable Family visiting. Review of systems: Was done for constitutional, cardiovascular, GI, pulmonary. relevant finding as above Active Medications Acetaminophen (Tylenol Tab) 500 mg PO Q6H PRN PRN Reason: Pain Apixaban (Eliquis) 5 mg PO BID [facility] Last Admin: 04/08/19 12:30 Dose: 5 mg Documented by: Ascorbic Acid (Vitamin C) 500 mg PO DAILY [facility] Last Admin: 04/08/19 12:29 Dose: 500 mg Documented by: Aspirin (Aspirin) 81 mg PO DAILY [facility] Last Admin: 04/08/19 08:55 Dose: 81 mg Documented by: Atorvastatin Calcium (Lipitor) 40 mg PO DAILY [facility] Last Admin: 04/08/19 08:55 Dose: 40 mg Documented by: Cholecalciferol (Vitamin D3 (25 Mcg = 1000 Iu)) 2,000 unit PO DAILY [facility] Last Admin: 04/08/19 12:29 Dose: 2,000 unit Documented by: Cyanocobalamin (Vitamin B-12) 500 mcg PO DAILY [facility] Last Admin: 04/08/19 12:29 Dose: 500 mcg Documented by: Furosemide (Lasix) 40 mg PO BID@0900,1600 [facility] Last Admin: 04/08/19 08:55 Dose: 40 mg Documented by: Miscellaneous Information (Rx Info: Iv Contrast Was Given) 1 each MISCELLANE DAILY PRN PRN Reason: Per Protocol Stop: 04/09/19 17:00 Naloxone HCl (Narcan) 0.2 mg IV Q2M PRN PRN Reason: Opioid Reversal Pantoprazole Sodium (Protonix) 40 mg PO DAILY [facility] Last Admin: 04/07/19 10:13 Dose: 40 mg Documented by: Potassium Chloride (K-Dur 10) 10 meq PO HS [facility] Last Admin: 04/07/19 20:00 Dose: Not Given Documented by: Sacubitril/Valsartan (Entresto 24 Mg-26 Mg Tablet) 1 each PO BID [facility] Last Admin: 04/08/19 08:55 Dose: 1 each Documented by: Physical examination: VITAL SIGNS: 97.7-53-16-111/57-96% on room air GENERAL: Sitting up, awake EYES: Pupils equal. Conjunctiva normal. HEENT: External appearance of nose and ears normal, oral cavity grossly normal decreased hearing. NECK: JVD possibly raised; masses not palpable. HEART: First and second heart sounds are normal; no edema. LUNGS: Respiratory rate normal; decreased breath sounds. ABDOMEN: Soft, nontender, liver spleen not palpable, no masses palpable. PSYCH: Alert and oriented x3; mood and affect normal. INVESTIGATIONS, reviewed in the clinical context: Potassium 4.6 (32 creatinine 1.33 Previous testing White count 6.8 hemoglobin 14.1 platelets 206 potassium 4.3 creatinine 1.12 Troponin I 0.0-5-0.044-0.047 ProBNP 626 EKG tracing personally reviewed by me-PVCs multiple Chest x-ray film personally reviewed by me-cardiomegaly, no obvious venous prominence Assessment: -PE ruled out -troponin leak, from CHF, not acute coronary syndrome -chronic congestive heart failure from systolic dysfunction EF 20-25%, -Moderate mitral regurgitation nonrheumatic -Coronary artery disease prior history of coronary artery bypass -Essential hypertension -Hyperlipidemia -Ascending thoracic aortic aneurysm 4.3 cm Plan: Pending placement of AICD. Await input from Dr. Griggs executive associate. Other medications to continue. -
--- NOTE | 2019-04-08 15:45 | P.CRDCN ---
History of Present Illness History of present illness: This is July Lagunas PA-C dictating an EP consult on this patient The patient was interviewed and examined by me as well as by Dr. Griggs Case discussed with Dr. Griggs and he agrees with the plan of care HPI Patient is a 78-year-old male with a past medical history significant or CAD status post CABG 4, ischemic cardiomyopathy, chronic systolic heart failure, bradycardia, and history of paroxysmal atrial fibrillation who presented with complaints of shortness of breath and fatigue. Patient states he was at home laying in bed when he experienced worsening shortness of breath. He typically sleeps with head of the bed elevated but still could not get any relief. He also fair felt very tired and fatigued. He did not have any chest pain, palpitations, dizziness or syncope. After his symptoms persisted for a few hours he decided to come into the emergency department for further evaluation. He was admitted for further workup and evaluation. We've been asked to see the patient for consideration of ICD implantation. An ICD has been recommended but he has refused it in the past because his was very ill and he was caring for her. EKGs and rhythm strips reviewed, show sinus bradycardia with advanced AV block and frequent PVCs of different morphologies. Previous echocardiogram in January 2019 shows EF 20-25%, moderate MR. Patient seen and examined sitti larissa in his room. States his breathing has improved somewhat. Denies any palpitations, dizziness, syncope. No chest pain. ROS: No fevers, chills or rigors, no cough, phlegm or expectoration, no nausea, vomiting or diarrhea, no hematuria, dysuria, no musculoskeletal complaints, no strokes or seizures, no skin lesions. EXAMINATION: Patient is afebrile, pulse in the 50s, respirations 16, blood pressure 99/55, oxygen saturation 96% on room air Patient seen and examined sitting in bed, in no acute distress Lungs are clear to auscultation bilaterally, no wheezing rhonchi or crackles appreciated Heart is irregular, systolic murmur audible No elevated JVD No lower extremity edema Abdomen soft and nontender to palpation REVIEW OF LABS, ECG & MEDICAL DATA WBC 6.8, hemoglobin 14.2, platelets 215, sodium 136, potassium 4.6, BUN 32, creatinine 1.33 TSH within normal limits Troponin 0.047, 0.044, 0.025 IMPRESSION / ASSESSMENT: Ischemic cardiomyopathy, EF 20-25% recent echocardiogram in January 2019 symptomatic bradycardia with Mobitz 2 AV block and frequent PVCs Acute on chronic systolic congestive heart failure CAD status post CABG Hypertension Dyslipidemia History of atrial fibrillation, anticoagulated with eliquis PLAN: Patient needs permanent pacing for Mobitz 2 an ICD is indicated for primary prevention of sudden cardiac , this was discussed in detail with the patient and he is agreeable to the plan With a dual chamber ICD his RV pacing percentage will above 40% therefore I would recommend implantation of biventricular ICD for prevention of sudden cardiac and to allow for maximization of beta blockers in the setting of underlying bradycardia and Mobitz 2 AV block Past Medical History Past Medical History: Coronary Artery Disease (CAD), Heart Failure History of Any Multi-Drug Resistant Organisms: None Reported Past Surgical History: Coronary Bypass/CABG Additional Past Surgical History / Comment(s): TIMUR in 1995 Past Anesthesia/Blood Transfusion Reactions: No Reported Reaction Past Psychological History: No Psychological Hx Reported Smoking Status: Never smoker Past Alcohol Use History: None Reported Past Drug Use History: None Reported - Past Family History Father Family Medical History: Coronary Artery Disease (CAD) Mother Family Medical History: Coronary Artery Disease (CAD) Medications and Allergies Home Medications Medication Instructions Recorded Confirmed Type Acetaminophen Tab [Tylenol] 500 mg PO Q6H PRN 02/03/19 04/06/19 History Ascorbic Acid [Vitamin C] 500 mg PO DAILY 02/03/19 04/06/19 History Aspirin EC [Ecotrin Low Dose] 81 mg PO DAILY 02/03/19 04/06/19 History Cholecalciferol (Vitamin D3) 2,000 unit PO DAILY 02/03/19 04/06/19 History [Vitamin D3] Cyanocobalamin [Vitamin B-12] 500 mcg PO DAILY 02/03/19 04/06/19 History [place]-3 Fatty Acids/Fish Oil [Fish 1 cap PO BID 02/03/19 04/06/19 History Oil 1,000 mg Softgel] Omeprazole 20 mg PO DAILY 02/03/19 04/06/19 History Potassium Chloride ER [K-Dur 10] 10 meq PO HS 02/03/19 04/06/19 History Apixaban [Eliquis] 5 mg PO BID #60 tab 02/07/19 04/06/19 Rx Atorvastatin [Lipitor] 40 mg PO DAILY #30 tab 02/07/19 04/06/19 Rx Furosemide [Lasix] 40 mg PO BID #60 tab 02/07/19 04/06/19 Rx Spironolactone [Aldactone] 25 mg PO DAILY #30 tab 02/07/19 04/06/19 Rx Sacubitril/Valsartan [Entresto 24 1 tab PO BID 04/06/19 04/06/19 History mg-26 mg Tablet] Allergies Allergy/AdvReac Type Severity Reaction Status Date / Time No Known Allergies Allergy Verified 04/06/19 17:25 Physical Exam Vitals: Vital Signs Temp Pulse Resp BP Pulse Ox 04/08/19 12:00 97.6 F 51 L 16 99/55 96 04/08/19 09:00 97.7 F 53 L 16 111/57 96 04/08/19 08:00 53 L 16 04/08/19 03:30 98 F 58 L 18 122/75 96 04/07/19 23:12 52 L 04/07/19 23:00 52 L 18 128/60 95 Intake and Output 04/08/19 04/08/19 04/08/19 06:59 14:59 22:59 Intake Total 480 Balance 480 Intake: Oral 480 Other: # Voids 1 1 Weight 70 kg Results 04/07/19 07:34 04/08/19 06:02 Comprehensive Metabolic Panel 04/08/19 Range/Units 06:02 Sodium 136 L (137-145) mmol/L Potassium 4.6 (3.5-5.1) mmol/L Chloride 98 (98-107) mmol/L Carbon Dioxide 27 (22-30) mmol/L BUN 32 H (9-20) mg/dL Creatinine 1.33 H (0.66-1.25) mg/dL Glucose 105 H (74-99) mg/dL Calcium 9.9 (8.4-10.2) mg/dL Current Medications Generic Name Dose Route Start Last Admin Trade Name Freq PRN Reason Stop Dose Admin Acetaminophen 500 mg 04/06/19 21:18 Tylenol Tab PO Q6H PRN Pain Apixaban 5 mg 04/06/19 21:00 04/08/19 12:30 Eliquis PO 5 mg BID [facility] Administration Ascorbic Acid 500 mg 04/07/19 09:00 04/08/19 12:29 Vitamin C PO 500 mg DAILY [facility] Administration Aspirin 81 mg 04/07/19 09:00 04/08/19 08:55 Aspirin PO 81 mg DAILY [facility] Administration Atorvastatin Calcium 40 mg 04/07/19 09:00 04/08/19 08:55 Lipitor PO 40 mg DAILY [facility] Administration Cholecalciferol 2,000 unit 04/07/19 09:00 04/08/19 12:29 Vitamin D3 (25 Mcg = 1000 Iu) PO 2,000 unit DAILY [facility] Administration Cyanocobalamin 500 mcg 04/07/19 09:00 04/08/19 12:29 Vitamin B-12 PO 500 mcg DAILY [facility] Administration Furosemide 40 mg 04/07/19 09:00 04/08/19 08:55 Lasix PO 40 mg BID@0900,1600 [facility] Administration Miscellaneous Information 1 each 04/07/19 16:59 Rx Info: Iv Contrast Was Given MISCELLANE 04/09/19 17:00 DAILY PRN Per Protocol Naloxone HCl 0.2 mg 04/06/19 16:19 Narcan IV Q2M PRN Opioid Reversal Pantoprazole Sodium 40 mg 04/07/19 09:00 04/07/19 10:13 Protonix PO 40 mg DAILY [facility] Administration Potassium Chloride 10 meq 04/06/19 21:00 04/07/19 20:00 K-Dur 10 PO Not Given HS [facility] Sacubitril/Valsartan 1 each 04/06/19 21:00 04/08/19 08:55 Entresto 24 Mg-26 Mg Tablet PO 1 each BID [facility] Administration Intake and Output 04/08/19 04/08/19 04/08/19 06:59 14:59 22:59 Intake Total 480 Balance 480 Intake: Oral 480 Other: # Voids 1 1 Weight 70 kg 04/07/19 07:34 04/08/19 06:02
[2019-04-08] MEDS: SODIUM CHLORIDE 0.9% 1,000 ML IV SCH ×2 (16:50→19:49)
[2019-04-08] MEDS ORDERED: LACTATED RINGERS 1,000 ML IV SCH (17:32)
[2019-04-08] MEDS: POTASSIUM CHLORIDE ER 10 MEQ TAB.ER.PRT PO SCH (20:50)
[2019-04-09] MEDS: SACUBITRIL/VALSARTAN 24 MG-26 MG TABLET PO SCH ×2 (05:31→22:44)
[2019-04-09] MEDS: ASCORBIC ACID 500 MG TAB PO SCH (05:31)
[2019-04-09] MEDS: CHOLECALCIFEROL 1,000 UNIT TAB PO SCH (05:31)
[2019-04-09] MEDS: ATORVASTATIN 40 MG TAB PO SCH (05:31)
[2019-04-09] MEDS: CYANOCOBALAMIN 500 MCG TAB PO SCH (05:31)
[2019-04-09] MEDS: PANTOPRAZOLE 40 MG TABLET PO SCH (05:31)
[2019-04-09] MEDS: APIXABAN 5 MG TAB PO SCH ×2 (05:31→22:44)
[2019-04-09] MEDS: ASPIRIN 81 MG PO SCH (05:31)
[2019-04-09] MEDS ORDERED: ceFAZolin 1,000 MG in SODIUM CHLORIDE 0.9% IRRIGATIO 250 ML IRRIGATION ONE (12:00)
[2019-04-09] MEDS ORDERED: LIDOCAINE 1% INJ 10MG/ML (20 ML MDV) ONE (16:33)
[2019-04-09] MEDS ORDERED: HYDROmorphone (PF) 1 MG/ML ONE (16:40)
[2019-04-09] MEDS ORDERED: fentaNYL (PF) 50 MCG/ML 2 ML AMP ONE (16:40)
[2019-04-09] MEDS ORDERED: MIDAZOLAM 2 MG/2 ML VIAL ONE (16:40)
[2019-04-09] MEDS ORDERED: ePHEDrine SULFATE/0.9% NACL/PF 50 MG/5 ML SYRINGE IV ONE (16:40)
[2019-04-09] MEDS ORDERED: IV FLUID CONTINUATION 1,000 ML IV ONE (16:40)
[2019-04-09] MEDS ORDERED: PROPOFOL 10 MG/ML 20 ML VIAL IV ONE (16:40)
[2019-04-09] MEDS: FUROSEMIDE 40 MG TAB PO SCH ×2 (16:42→16:43)
[2019-04-09] MEDS ORDERED: IOPAMIDOL-370 50ML BTL INJ ONE (16:55)
[2019-04-09] MEDS ORDERED: ACETAMINOPHEN IV (For NPO) 1,000 MG in EMPTY BAG 1 BAG IVPB ONE (17:13)
[2019-04-09] MEDS ORDERED: ACETAMINOPHEN TAB 325 MG TAB PO PRN (17:13)
[2019-04-09] MEDS ORDERED: HYDROcodone/APAP 5-325MG 1 EACH TAB PO PRN (17:13)
[2019-04-09] MEDS ORDERED: LIDOCAINE 1% INJ 10MG/ML (20 ML MDV) SQ ONE ×2 (17:23→17:24)
[2019-04-09] MEDS: SODIUM CHLORIDE 0.9% 1,000 ML IV SCH ×2 (17:27→17:28)
[2019-04-09] MEDS ORDERED: IOPAMIDOL-370 100ML BTL INJ ONE (17:55)
--- NOTE | 2019-04-09 18:06 | P.PN ---
Progress Note - Text Progress Note Date: 04/09/19 Chief Complaint: Short of breath History of presenting complaint 78-year-old patient of Dr. Daly, chronic stable medical conditions include moderate mitral regurgitation, coronary artery disease bypass, essential hypertension, hyperlipidemia, ascending thoracic aortic aneurysm 4.3 cm, EF of 20/25 percent.: Patient presents 1 day of increasing shortness of breath. No orthopnea. No edema. No cough or sputum. No fever no chills. Patient is concerned about his CHF has decided to come in. PE was ruled out. Cardiology looking at placing an AICD. No obvious CHF exacerbation. Today-saw the patient this morning. Pending AICD placement. Cardizem drip. Otherwise comfortable. Review of systems: Was done for constitutional, cardiovascular, GI, pulmonary. relevant finding as above Active Medications Acetaminophen (Tylenol Tab) 650 mg PO Q6HR PRN PRN Reason: Mild Pain Hydrocodone Bitart/Acetaminophen ([place] 5-325) 1 each PO Q4HR PRN PRN Reason: MODERATE TO SEVERE Pain Apixaban (Eliquis) 5 mg PO BID [facility] Last Admin: 04/09/19 05:31 Dose: 5 mg Documented by: Ascorbic Acid (Vitamin C) 500 mg PO DAILY [facility] Last Admin: 04/09/19 05:31 Dose: 500 mg Documented by: Aspirin (Aspirin) 81 mg PO DAILY [facility] Last Admin: 04/09/19 05:31 Dose: 81 mg Documented by: Atorvastatin Calcium (Lipitor) 40 mg PO DAILY [facility] Last Admin: 04/09/19 05:31 Dose: 40 mg Documented by: Cholecalciferol (Vitamin D3 (25 Mcg = 1000 Iu)) 2,000 unit PO DAILY [facility] Last Admin: 04/09/19 05:31 Dose: 2,000 unit Documented by: Cyanocobalamin (Vitamin B-12) 500 mcg PO DAILY [facility] Last Admin: 04/09/19 05:31 Dose: 500 mcg Documented by: Furosemide (Lasix) 40 mg PO BID@0900,1600 [facility] Last Admin: 04/09/19 16:43 Dose: Not Given Documented by: Cefazolin Sodium 2 gm/ Sodium (Chloride) 50 mls @ 100 mls/hr IVPB Q6H [facility] Stop: 04/10/19 17:29 Metoprolol Succinate (Toprol Xl) 25 mg PO DAILY [facility] Naloxone HCl (Narcan) 0.2 mg IV Q2M PRN PRN Reason: Opioid Reversal Pantoprazole Sodium (Protonix) 40 mg PO DAILY [facility] Last Admin: 04/09/19 05:31 Dose: 40 mg Documented by: Sacubitril/Valsartan (Entresto 24 Mg-26 Mg Tablet) 1 each PO BID [facility] Last Admin: 04/09/19 05:31 Dose: 1 each Documented by: Sodium Chloride (Saline Flush) 10 ml IV Q12HR [facility] Physical examination: VITAL SIGNS: 97.8, 64, 16, 132/53, 95% room air GENERAL: Sitting up, comfortable EYES: Pupils equal. Conjunctiva normal. HEENT: External appearance of nose and ears normal, oral cavity grossly normal decreased hearing. NECK: JVD possibly raised; masses not palpable. HEART: First and second heart sounds are normal; no edema. LUNGS: Respiratory rate normal; decreased breath sounds. ABDOMEN: Soft, nontender, liver spleen not palpable, no masses palpable. PSYCH: Alert and oriented x3; mood and affect normal. INVESTIGATIONS, reviewed in the clinical context: Potassium 4.6 (32 creatinine 1.33 Previous testing White count 6.8 hemoglobin 14.1 platelets 206 potassium 4.3 creatinine 1.12 Troponin I 0.0-5-0.044-0.047 ProBNP 626 EKG tracing personally reviewed by me-PVCs multiple Chest x-ray film personally reviewed by me-cardiomegaly, no obvious venous prominence Assessment: -Pending AICD placement for sudden cardiac -PE ruled out -troponin leak, from CHF, not acute coronary syndrome -chronic congestive heart failure from systolic dysfunction EF 20-25%, -Moderate mitral regurgitation nonrheumatic -Coronary artery disease prior history of coronary artery bypass -Essential hypertension -Hyperlipidemia -Ascending thoracic aortic aneurysm 4.3 cm Plan: Pending placement of AICD.-Today. Other medications to continue. Patient nothing by mouth..
[2019-04-09] MEDS ORDERED: LACTATED RINGERS 1,000 ML IV ONE (19:05)
[2019-04-09] MEDS ORDERED: FUROSEMIDE 10 MG/ML 4 ML VIAL ONE (19:22)
[2019-04-09] MEDS ORDERED: FUROSEMIDE 10 MG/ML 4 ML VIAL IV ONE (19:23)
[2019-04-09] MEDS ORDERED: ONDANSETRON 4 MG/2 ML VIAL IVP ONE (20:08)
--- NOTE | 2019-04-10 07:34 | CE ---
CARDIAC ELECTROPHYSIOLOGY REPORT Mr. Escamilla is a 78-year-old male patient, who has severe ischemic cardiomyopathy, complete heart block, severe LV dysfunction, ischemic cardiomyopathy and congestive heart failure class 3 with a wide QRS. He was brought in for biventricular ICD. A standard dual-chamber ICD will result in 100% RV pacing, which would be detrimental to his cardiac function and heart failure. Patient is brought to the EP lab in a fasting state. Written informed consent was obtained prior to the procedure. The left shoulder area was prepped and draped as per protocol. Lidocaine was used for local anesthesia. The left pectoral area was prepped and draped as per protocol, 1% lidocaine was used for local anesthesia. A 4 cm incision made parallel to the deltopectoral groove, about 1.5 cm medial to the incision was carried down to the level of the pectoralis muscle. A subfascial pocket was made, hemostasis was assured. The left axillary vein was accessed at 3 separate points under fluoroscopy and via appropriately-sized introducer sheaths, 3 leads were positioned. The atrial lead was a screw-in lead was #[id number], 52 cm length and serial #[id number]. The P waves were 3.1 mV, pacing impedance 460 ohms, pacing threshold 0.5 V at 0.5 milliseconds, 10 V test negative. The LV lead was a [employer] model #[id number], 86 cm in length and serial #[id number]. Pacing impedance was 810 ohms, pacing threshold 1 V at 0.5 milliseconds, 10 V test negative. This lead was placed in the lateral vein. The RV lead was positioned in the RV apex, and this was a [employer] model #[id number], 58 cm in length and serial number [id number]. The R-waves were 4.5 mV, pacing impedance 610 ohms, pacing threshold 0.5 V at 0.5 milliseconds. All 3 leads were secured to the underlying pectoralis muscle using 2 nonabsorbable sutures. Pocket was irrigated with antibiotic solution. Leads were connected to the generator ([employer] model #[id number], serial #[id number]. The leads and the generator were then placed in the subfascial pocket. The wound was closed in 3 layers and dressed per protocol. RESULTS: Successful biventricular ICD implantation for management of heart failure with ischemic cardiomyopathy in a wide QRS and very prolonged and advanced AV block secondary to Mobitz type 2 block with intermittent third-degree AV block. MMYANA / IJN: [id number] /
--- NOTE | 2019-04-10 08:09 | XR ---
EXAMINATION TYPE: XR chest 2V DATE OF EXAM: 04/10/2019 COMPARISON: 04/06/2019 TECHNIQUE: PA and lateral views submitted. HISTORY: Lead placement check FINDINGS: The lungs are clear and there is no pneumothorax, pleural effusion, or focal pneumonia. Cardiac dev ice is seen in size thorax. Prominence of the ascending aorta likely reflects reported history of ane urysm. Atherosclerotic change aorta. Hypertrophic and degenerative change of the spine. Subsegmental changes at the lung base. Sternotomy wires are seen. Metallic density overlying the heart on the late ral view is indeterminant. May be superficial to the patient. IMPRESSION: 1. Multilead cardiac device noted with no evidence of pneumothorax. 2. Basilar subsegmental consolidation may represent atelectasis rather than early pneumonia correlate clinically..
[2019-04-10] MEDS: APIXABAN 5 MG TAB PO SCH (08:23)
[2019-04-10] MEDS: PANTOPRAZOLE 40 MG TABLET PO SCH (08:24)
[2019-04-10] MEDS: CHOLECALCIFEROL 1,000 UNIT TAB PO SCH (08:24)
[2019-04-10] MEDS: ASCORBIC ACID 500 MG TAB PO SCH (08:24)
[2019-04-10] MEDS: CYANOCOBALAMIN 500 MCG TAB PO SCH (08:24)
[2019-04-10] MEDS: ASPIRIN 81 MG PO SCH (08:25)
[2019-04-10] MEDS: ATORVASTATIN 40 MG TAB PO SCH (08:25)
[2019-04-10] MEDS: FUROSEMIDE 40 MG TAB PO SCH ×2 (08:30→15:59)
[2019-04-10] MEDS ORDERED: METOPROLOL SUCCINATE (ER) 25 MG TAB.ER.24H PO SCH (09:00)
--- NOTE | 2019-04-10 11:32 | P.PN ---
Subjective Progress Note Date: 04/10/19 Socrates is a pleasant 78-year-old gentleman with history of coronary artery disease and prior bypass surgery, ischemic cardio myopathy, chronic systolic congestive heart failure, history of bradycardia and paroxysmal atrial fibrillation presented to the hospital with symptoms of feeling fatigued and tired. He was advised in the past undergo implantation of AICD but refused, at this point he is now more agreeable. He is quite bradycardic on the monitor, at times only. To have PVCs. Consultation was requested with Dr. Griggs for implantation of an AICD. Blood pressure 110/60 with a heart rate in the 40s to 50s, 96% on room air. Sodium 136, potassium 4.6, BUN 32, creatinine 1.3. 04/10/2019 Patient underwent successful implantation of biventricular ICD by Dr. Griggs yesterday. Chest x-ray from this morning was reviewed, no evidence of any pneumothorax. Device was interrogated and is functioning appropriately. Patient overall feels well, no complaints. Blood pressure 102/60 with a heart r ate in the 60s, 93% on room air. Objective - Vital Signs Vital signs: Vital Signs Temp 98.0 F 04/10/19 11:27 Pulse 68 04/10/19 11:27 Resp 16 04/10/19 11:27 BP 102/64 04/10/19 11:27 Pulse Ox 93 L 04/10/19 11:27 Intake & Output 04/09/19 04/10/19 04/10/19 18:59 06:59 18:59 Intake Total 850 0 480 Output Total 500 400 Balance 850 -500 80 Weight 69.7 kg Intake: IV 850 0 Oral 480 Output: Urine 500 400 Other: Voiding Method Urinal Urinal # Voids 1 2 3 - Exam PHYSICAL EXAMINATION: GENERAL: 78-year-old gentleman in no acute distress at the time of my examination HEENT: Head is atraumatic, normocephalic. Pupils equal, round. Sclera anicteric. Conjunctiva are clear. Mucous membranes of the mouth are moist. Neck is supple. There is no elevated jugular venous pressure. No carotid bruit is heard. HEART EXAMINATION: S1 and S2 irregularly irregular a systolic murmur is heard CHEST EXAMINATION: Lungs are clear to auscultation and precussion. No chest wall tenderness is noted on palpation or with deep breathing. Site of device implantation, dressing is dry and intact. ABDOMEN: Soft, nontender. Bowel sounds are heard. No organomegaly noted. EXTREMITIES: 2+ peripheral pulses with no evidence of peripheral edema and no calf tenderness noted. NEUROLOGIC patient is awake, alert and oriented X3. . - Labs CBC & Chem 7: 04/07/19 07:34 04/08/19 06:02 Assessment and Plan Plan: Assessment and plan #1 systolic congestive heart failure acute on chronic #2 paroxysmal atrial fibrillation #3 bradycardia, frequent ventricular ectopy #4 coronary artery disease with prior bypass surgery #5 ischemic cardiomyopathy with severe LV dysfunction #6Hypertension #7 hyperlipidemia Plan Patient underwent implantation of a biventricular AICD yesterday, should be able to be discharged home today. Follow-up appointment in the office post discharge. DNP note has been reviewed, I agree with a documented findings and plan of care. Patient was seen and examined.
[2019-04-10] MEDS: SACUBITRIL/VALSARTAN 24 MG-26 MG TABLET PO SCH (12:51)
[2019-04-10 15:55] VITALS: BP 91/50; PULSE 67; RESP 12; TEMP 97.8
--- NOTE | 2019-04-11 15:00 | P.DS ---
Providers Date of admission: 04/08/19 08:38 Expected date of discharge: 04/10/19 Attending physician: Andrea Birmingham Consults: 04/06/19 21:18 Consult Physician Routine Consulting Provider: Oliver Villalobos Consult Reason/Comments: -positive troponin, bradycardia Do you want consulting provider notified?: Yes Primary care physician: Juan Pablo Daly [facility] Course: Chief Complaint: Short of breath Hospital course Pleasant 78-year-old patient of Dr. Daly, chronic stable medical conditions include moderate mitral regurgitation, coronary artery disease- bypass, essential hypertension, hyperlipidemia, ascending thoracic aortic aneurysm 4.3 cm, EF of-20-25 percent.: Patient presents 1 day of increasing shortness of breath. No orthopnea. No edema. No cough or sputum. No fever no chills. PE was ruled out. Cardiology looking at placing an AICD.. Patient's had symptomatic bradycardia with Mobitz type II AV block and frequent PVCs. Patient had a AICD placed. per cardiology- CHF exacerbation. Today-doing well. AICD was checked. Cleared by cardiology to be discharged. Discussion discharge planning more than 35 minutes Consultation: Dr. Emily Villalobos from cardiology Dr. Virgilio Griggs from electrophysiology Physical examination: VITAL SIGNS: 97.8, 67, 20, 91/50, 94% on room air GENERAL: Sitting up, comfortable, left arm in a sling EYES: Pupils equal. Conjunctiva normal. HEENT: External appearance of nose and ears normal, oral cavity grossly normal decreased hearing. NECK: JVD possibly raised; masses not palpable. HEART: First and second heart sounds are normal; no edema. LUNGS: Respiratory rate normal; decreased breath sounds. ABDOMEN: Soft, nontender, liver spleen not palpable, no masses palpable. PSYCH: Alert and oriented x3; mood and affect normal. INVESTIGATIONS, reviewed in the clinical context: Potassium 4.6 bun 32 creatinine 1.33 Previous testing White count 6.8 hemoglobin 14.1 platelets 206 potassium 4.3 creatinine 1.12 Troponin I 0.0-5-0.044-0.047 ProBNP 626 EKG tracing personally reviewed by me-PVCs multiple Chest x-ray film personally reviewed by me-cardiomegaly, no obvious venous prominence Assessment: -Symptomatic bradycardia with Mobitz type II AV block and frequent PVCs -Procedure-AICD placement -PE ruled out -troponin leak, from CHF, not acute coronary syndrome -Acute on chronic congestive heart failure from systolic dysfunction EF 20-25%, -Moderate mitral regurgitation nonrheumatic -Coronary artery disease prior history of coronary artery bypass -Essential hypertension -Hyperlipidemia -Ascending thoracic aortic aneurysm 4.3 cm Disposition: Home Patient Condition at Discharge: Stable Plan - Discharge Summary Discharge Rx Participant: Yes New Discharge Prescriptions: New Metoprolol Succinate (ER) [Toprol XL] 25 mg PO DAILY #30 tab.er.24h Continue [place]-3 Fatty Acids/Fish Oil [Fish Oil 1,000 mg Softgel] 1 cap PO BID Cyanocobalamin [Vitamin B-12] 500 mcg PO DAILY Cholecalciferol (Vitamin D3) [Vitamin D3] 2,000 unit PO DAILY Aspirin EC [Ecotrin Low Dose] 81 mg PO DAILY Ascorbic Acid [Vitamin C] 500 mg PO DAILY Omeprazole 20 mg PO DAILY Acetaminophen Tab [Tylenol] 500 mg PO Q6H PRN PRN Reason: Pain Potassium Chloride ER [K-Dur 10] 10 meq PO HS Apixaban [Eliquis] 5 mg PO BID #60 tab Atorvastatin [Lipitor] 40 mg PO DAILY #30 tab Sacubitril/Valsartan [Entresto 24 mg-26 mg Tablet] 1 tab PO BID Changed Spironolactone [Aldactone] 12.5 mg PO DAILY@1300 #30 tab Furosemide [Lasix] 40 mg PO DAILY #60 tab Discharge Medication List Acetaminophen Tab [Tylenol] 500 mg PO Q6H PRN 02/03/19 [History] Ascorbic Acid [Vitamin C] 500 mg PO DAILY 02/03/19 [History] Aspirin EC [Ecotrin Low Dose] 81 mg PO DAILY 02/03/19 [History] Cholecalciferol (Vitamin D3) [Vitamin D3] 2,000 unit PO DAILY 02/03/19 [History] Cyanocobalamin [Vitamin B-12] 500 mcg PO DAILY 02/03/19 [History] [place]-3 Fatty Acids/Fish Oil [Fish Oil 1,000 mg Softgel] 1 cap PO BID 02/03/19 [History] Omeprazole 20 mg PO DAILY 02/03/19 [History] Potassium Chloride ER [K-Dur 10] 10 meq PO HS 02/03/19 [History] Apixaban [Eliquis] 5 mg PO BID #60 tab 02/07/19 [Rx] Atorvastatin [Lipitor] 40 mg PO DAILY #30 tab 02/07/19 [Rx] Sacubitril/Valsartan [Entresto 24 mg-26 mg Tablet] 1 tab PO BID 04/06/19 [History] Furosemide [Lasix] 40 mg PO DAILY #60 tab 04/10/19 [Rx] Metoprolol Succinate (ER) [Toprol XL] 25 mg PO DAILY #30 tab.er.24h 04/10/19 [Rx] Spironolactone [Aldactone] 12.5 mg PO DAILY@1300 #30 tab 04/10/19 [Rx] Follow up Appointment(s)/Referral(s): [facility] [Provider Group] - 04/17/19 11:00 am (Device check and dressing removal first in office, then Dr. Villalobos will see you as well.) Juan Pablo Daly MD [Primary Care Provider] - 04/15/19 11:40 am (Monday -previously scheduled appointment) Patient Instructions/Handouts: Bradycardia (DC), Implantable Cardioverter Defibrillator (DC) Activity/Diet/Wound Care/Special Instructions: Pacemaker/Implanted defibrillator instructions: 1. Keep dressing dry and intact for 5 days. You may cover the area with saran or cling wrap, prior to a shower. 2. The dressing will be removed in the Device Clinic at [facility]. Absorbable sutures were used to close the wound. 3. Avoid raising the left arm above the shoulder level. (4-week restriction). 4. Avoid arm movements, like backscratching, rubbing your head, or pulling on a cord with your left arm. (4-week restriction). 5. Gentle range of motion movements of the left shoulder should be performed to avoid a frozen shoulder. (Pendulum exercises). 6. The opposite arm may be used freely. 7. Avoid driving for 7 days. 8. Avoid activities such as golfing, swimming, week whacking, lifting more than 10 pounds of weight, bowling, gymnastics and weight training/lifting. (6-week restriction). 9. Activities such as chopping wood, pull-ups, power lifting, welding, and being around an induction cooktop will always be a problem and can interfere with your pacemaker. 10. Your arm sling is only a reminder to not lift your arm above your head. You do not need to keep the arm completely immobilized. You are free to move your arm and use it for normal activities. In case of any problems, please call [facility] [place] @ [phone]. Discharge Disposition: HOME SELF-CARE
== END 2019-04-10 17:05 | disposition home or self-care (01) | DRG 226 ==
LOC: EC 12:04 → 4SSUR 16:20 → 3SCARD 04-07 18:00 → OBSVTOIN 04-08 08:38
PROVIDERS: ADMIT Hospitalist; ATTEND Hospitalist
DX: I44.1 Atrioventricular block, second degree (principal); I50.23 Acute on chronic systolic (congestive) heart failure; I48.19 Other persistent atrial fibrillation; I49.3 Ventricular premature depolarization; I11.0 Hypertensive heart disease with heart failure; I71.2 Thoracic aortic aneurysm, without rupture; E78.5 Hyperlipidemia, unspecified; E87.5 Hyperkalemia; I25.10 Atherosclerotic heart disease of native coronary artery without angina pectoris; I25.5 Ischemic cardiomyopathy; I34.0 Nonrheumatic mitral (valve) insufficiency; I49.1 Atrial premature depolarization; K21.9 Gastro-esophageal reflux disease without esophagitis; Z79.01 Long term (current) use of anticoagulants; Z79.82 Long term (current) use of aspirin; Z79.899 Other long term (current) drug therapy; Z99.81 Dependence on supplemental oxygen; Z95.1 Presence of aortocoronary bypass graft; Z82.49 Family history of ischemic heart disease and other diseases of the circulatory system
CPT/HCPCS: 33225; 33249; 36415; 71046; 71275; 80048; 80053; 83605; 83735; 83880; 84132; 84443; 84484; 85025; 85379; 85610; 85730; 93005; 94640; 99285

== ENCOUNTER 2020-01-28 14:06 | Inpatient (IN) | payer MEDICARE, BC ==
[2020-01-28 15:09] LABS: Anisocytosis Slight; Basophils % (A) 0 %; Eosinophils # (A) 0.1 k/uL (0-0.7); Eosinophils % (A) 2 %; HCT 39.3 % (39.0-53.0); HGB 12.9 gm/dL (13.0-17.5); Lymphocytes # (A) 0.5 k/uL (1.0-4.8); Lymphocytes % (A) 6 %; MCH 29.8 pg (25.0-35.0); MCHC 32.7 g/dL (31.0-37.0); MCV 90.9 fL (80.0-100.0); Mean Platelet Volume 7.5; Monocytes # (A) 0.3 k/uL (0-1.0); Monocytes % (A) 4 %; Neutrophils # (A) 6.5 k/uL (1.3-7.7); Neutrophils % (A) 87 %; Platelet Count 195 k/uL (150-450); RBC 4.33 m/uL (4.30-5.90); RDW 16.5 % (11.5-15.5); WBC 7.5 k/uL (3.8-10.6)
[2020-01-28 15:17] LABS: Calcium 9.2 mg/dL (8.4-10.2); Potassium 3.8 mmol/L (3.5-5.1)
[2020-01-28] MEDS ORDERED: SODIUM CHLORIDE 0.9% 1,000 ML IV STA (15:52)
--- NOTE | 2020-01-28 16:26 | ED ---
Recheck HPI - General Chief Complaint: Recheck/Abnormal Lab/Rx Stated Complaint: Sent by pcp for kidney issues? Time Seen by Provider: 01/28/20 15:33 Source: patient Mode of arrival: ambulatory Limitations: no limitations - History of Present Illness Initial Comments: Patient is a 79-year-old male with history of heart disease with pacer, presenting to the emergency department after he was sent in to the ER from his physician's office for "kidney issues." Patient states he does not know what the reason is. Patient has been having some weakness over the past 1-2 weeks. Appetite has also been low, is not eating and drinking very much. Patient de nies any chest pains, abdominal pain, nausea, vomiting. He states he feels like he has been urinating a little bit less. He denies any fever, chills, cough, shortness of breath. He denies ever having kidney issues in the past. He denies having recent illness. He states only changes in his medication is they did add Lipitor a few weeks ago. Patient has no further complaints at this time. Upon arrival to the ER, his vital signs are stable. - Related Data Home Medications Medication Instructions Recorded Confirmed Acetaminophen Tab [Tylenol] 500 mg PO Q6H PRN 02/03/19 04/06/19 Ascorbic Acid [Vitamin C] 500 mg PO DAILY 02/03/19 04/06/19 Aspirin EC [Ecotrin Low Dose] 81 mg PO DAILY 02/03/19 04/06/19 Cholecalciferol (Vitamin D3) 2,000 unit PO DAILY 02/03/19 04/06/19 [Vitamin D3] Cyanocobalamin [Vitamin B-12] 500 mcg PO DAILY 02/03/19 04/06/19 [place]-3 Fatty Acids/Fish Oil [Fish 1 cap PO BID 02/03/19 04/06/19 Oil 1,000 mg Softgel] Omeprazole 20 mg PO DAILY 02/03/19 04/06/19 Potassium Chloride ER [K-Dur 10] 10 meq PO HS 02/03/19 04/06/19 Sacubitril/Valsartan [Entresto 24 1 tab PO BID 04/06/19 04/06/19 mg-26 mg Tablet] Previous Rx's Medication Instructions Recorded Apixaban [Eliquis] 5 mg PO BID #60 tab 02/07/19 Atorvastatin [Lipitor] 40 mg PO DAILY #30 tab 02/07/19 Furosemide [Lasix] 40 mg PO DAILY #60 tab 04/10/19 Metoprolol Succinate (ER) [Toprol 25 mg PO DAILY #30 tab.er.24h 04/10/19 XL] Spironolactone [Aldactone] 12.5 mg PO DAILY@1300 #30 tab 04/10/19 Allergies Allergy/AdvReac Type Severity Reaction Status Date / Time No Known Allergies Allergy Verified 01/28/20 14:47 Review of Systems ROS Statement: Those systems with pertinent positive or pertinent negative responses have been documented in the HPI. ROS Other: All systems not noted in ROS Statement are negative. Past Medical History Past Medical History: Coronary Artery Disease (CAD), Heart Failure History of Any Multi-Drug Resistant Organisms: None Reported Past Surgical History: Coronary Bypass/CABG Additional Past Surgical History / Comment(s): TIMUR in 1995 Past Anesthesia/Blood Transfusion Reactions: No Reported Reaction Past Psychological History: No Psychological Hx Reported Smoking Status: Never smoker Past Alcohol Use History: None Reported Past Drug Use History: None Reported - Past Family History Father Family Medical History: Coronary Artery Disease (CAD) Mother Family Medical History: Coronary Artery Disease (CAD) General Exam - General Exam Comments Initial Comments: GENERAL: Patient is well-developed and well-nourished. Patient is nontoxic and in no acute distress. HEAD: Atraumatic, normocephalic. EYES: Pupils equal round and reactive to light, extraocular movements intact, sclera anicteric, conjunctiva are normal. Eyelids were unremarkable. ENT: TMs normal, nares patent, oropharynx clear without exudates. Moist mucous membranes. NECK: Normal range of motion, supple without lymphadenopathy or JVD. LUNGS: Unlabored respirations. Breath sounds clear to auscultation bilaterally and equal. No wheezes rales or rhonchi. HEART: Regular rate and rhythm without murmurs, rubs or gallops. ABDOMEN: Soft, nontender, normoactive bowel sounds. No guarding, no rebound. No masses appreciated. : Deferred MUSCULOSKELETAL: Normal extremities with adequate strength and normal range of motion, no pitting or edema. No clubbing or cyanosis. NEUROLOGICAL: Patient is alert and oriented x 3. Motor and sensory are also intact. Cranial nerves II through XII grossly intact. Symmetrical smile. Normal speech, normal gait. PSYCH: Normal mood, normal affect. SKIN: Warm, Dry, normal turgor, no rashes or lesions noted. Limitations: no limitations Course Vital Signs 01/28/20 14:43 Temperature 97.8 F Pulse Rate 62 Respiratory 18 Rate Blood Pressure 98/56 O2 Sat by Pulse 97 Oximetry Medical Decision Making - Medical Decision Making Patient is a 79-year-old male with history of heart disease, with pacer, presenting for kidney issues from his PCP. Patient states he had a normal checkup and blood work yesterday and he was called today stating days ago into the ER for kidney issues. Patient has no specific complaints at this time other than some mild weakness over the past 1-2 weeks, low appetite. Exam is unremarkable. EKG shows a paced rhythm, no acute process. Labs reveal normal white count, and kidney function shows creatinine 3.16, BUN is 77 which is almost doubled from baseline. Patient's troponin is 0.052, he does have history of elevated troponins in the past. He has had no chest pain or shortness of breath here. He since urine shows no evidence of infection. Patient will be admitted for XUAN, weakness. Will order a kidney ultrasound, this is pending. Pt accepted by Dr. Birmingham, nephro consult. Case discussed with Dr. Dominguez. - Lab Data Result diagrams: 01/28/20 15:00 01/28/20 16:39 Lab Results 01/28/20 01/28/20 01/28/20 Range/Units 15:00 15:00 16:35 WBC 7.5 (3.8-10.6) k/uL RBC 4.33 (4.30-5.90) m/uL Hgb 12.9 L (13.0-17.5) gm/dL Hct 39.3 (39.0-53.0) % MCV 90.9 (80.0-100.0) fL MCH 29.8 (25.0-35.0) pg MCHC 32.7 (31.0-37.0) g/dL RDW 16.5 H (11.5-15.5) % Plt Count 195 (150-450) k/uL MPV 7.5 Neutrophils % 87 % Lymphocytes % 6 % Monocytes % 4 % Eosinophils % 2 % Basophils % 0 % Neutrophils # 6.5 (1.3-7.7) k/uL Lymphocytes # 0.5 L (1.0-4.8) k/uL Monocytes # 0.3 (0-1.0) k/uL Eosinophils # 0.1 (0-0.7) k/uL Basophils # 0.0 (0-0.2) k/uL Anisocytosis Slight PT (9.0-12.0) sec INR (<1.2) APTT (22.0-30.0) sec Sodium 137 (137-145) mmol/L Potassium 3.8 (3.5-5.1) mmol/L Chloride 111 H (98-107) mmol/L Carbon Dioxide 15 L (22-30) mmol/L Anion Gap 11 mmol/L BUN 77 H (9-20) mg/dL Creatinine 3.16 H (0.66-1.25) mg/dL Est GFR (CKD-EPI)AfAm 21 (>60 ml/min/1.73 sqM) Est GFR (CKD-EPI)NonAf 18 (>60 ml/min/1.73 sqM) Glucose 102 H (74-99) mg/dL Calcium 9.2 (8.4-10.2) mg/dL Magnesium (1.6-2.3) mg/dL Total Bilirubin (0.2-1.3) mg/dL AST (17-59) U/L ALT (4-49) U/L Alkaline Phosphatase (38-126) U/L Troponin I (0.000-0.034) ng/mL Total Protein (6.3-8.2) g/dL Albumin (3.5-5.0) g/dL Urine Color Light Yellow Urine Appearance Clear (Clear) Urine pH 5.0 (5.0-8.0) Ur Specific [place] 1.010 (1.001-1.035) Urine Protein Negative (Negative) Urine Glucose (UA) Negative (Negative) Urine Ketones Negative (Negative) Urine Blood Negative (Negative) Urine Nitrite Negative (Negative) Urine Bilirubin Negative (Negative) Urine Urobilinogen <2.0 (<2.0) mg/dL Ur Leukocyte Esterase Negative (Negative) 01/28/20 01/28/20 01/28/20 Range/Units 16:39 16:39 16:39 WBC (3.8-10.6) k/uL RBC (4.30-5.90) m/uL Hgb (13.0-17.5) gm/dL Hct (39.0-53.0) % MCV (80.0-100.0) fL MCH (25.0-35.0) pg MCHC (31.0-37.0) g/dL RDW (11.5-15.5) % Plt Count (150-450) k/uL MPV Neutrophils % % Lymphocytes % % Monocytes % % Eosinophils % % Basophils % % Neutrophils # (1.3-7.7) k/uL Lymphocytes # (1.0-4.8) k/uL Monocytes # (0-1.0) k/uL Eosinophils # (0-0.7) k/uL Basophils # (0-0.2) k/uL Anisocytosis PT 11.2 (9.0-12.0) sec INR 1.1 (<1.2) APTT 29.6 (22.0-30.0) sec Sodium 139 (137-145) mmol/L Potassium 3.7 (3.5-5.1) mmol/L Chloride 109 H (98-107) mmol/L Carbon Dioxide 16 L (22-30) mmol/L Anion Gap 14 mmol/L BUN 76 H (9-20) mg/dL Creatinine 3.07 H (0.66-1.25) mg/dL Est GFR (CKD-EPI)AfAm 22 (>60 ml/min/1.73 sqM) Est GFR (CKD-EPI)NonAf 19 (>60 ml/min/1.73 sqM) Glucose 91 (74-99) mg/dL Calcium 9.4 (8.4-10.2) mg/dL Magnesium 1.2 L (1.6-2.3) mg/dL Total Bilirubin 0.8 (0.2-1.3) mg/dL AST 17 (17-59) U/L ALT 13 (4-49) U/L Alkaline Phosphatase 55 (38-126) U/L Troponin I 0.052 H* (0.000-0.034) ng/mL Total Protein 7.2 (6.3-8.2) g/dL Albumin 4.5 (3.5-5.0) g/dL Urine Color Urine Appearance (Clear) Urine pH (5.0-8.0) Ur Specific [place] (1.001-1.035) Urine Protein (Negative) Urine Glucose (UA) (Negative) Urine Ketones (Negative) Urine Blood (Negative) Urine Nitrite (Negative) Urine Bilirubin (Negative) Urine Urobilinogen (<2.0) mg/dL Ur Leukocyte Esterase (Negative) - EKG Data EKG Comments: Paced rhythm with occasional PVCs, no signs of acute ischemia. Ventricular rate 59, QRS duration 186, QT 486. Disposition Clinical Impression: Weakness, XUAN (acute kidney injury) Disposition: ADMITTED IP TO THIS HOSP Condition: Stable Referrals: Juan Pablo Daly MD [Primary Care Provider] - 1-2 days Decision Date: 01/28/20 Decision Time: 17:18
[2020-01-28 16:51] LABS: Appearance,Urine Clear (Clear); Bilirubin,Urine Negative (Negative); Blood,Urine Negative (Negative); Color,Urine Light Yellow; Glucose,Urine (UA) Negative (Negative); Ketones,Urine Negative (Negative); Leukocyte Esterase,Urine Negative (Negative); Nitrite,Urine Negative (Negative); Protein,Urine Negative (Negative); Urobilinogen,Urine <2.0 mg/dL (<2.0)
[2020-01-28 16:56] LABS: Albumin 4.5 g/dL (3.5-5.0); Calcium 9.4 mg/dL (8.4-10.2); INR 1.1 (<1.2); Magnesium 1.2 mg/dL (1.6-2.3); Partial Thromboplastin Time 29.6 sec (22.0-30.0); Potassium 3.7 mmol/L (3.5-5.1); Prothrombin Time 11.2 sec (9.0-12.0); Total Bilirubin 0.8 mg/dL (0.2-1.3); Total Protein 7.2 g/dL (6.3-8.2)
[2020-01-28] MEDS ORDERED: ACETAMINOPHEN TAB 325 MG TAB PO PRN (17:13)
[2020-01-28] MEDS ORDERED: NALOXONE 0.4 MG/ML 1 ML VIAL IV PRN (17:13)
--- NOTE | 2020-01-28 17:16 | XR ---
EXAMINATION TYPE: XR chest 2V DATE OF EXAM: 01/28/2020 COMPARISON: 04/10/2019 HISTORY: Weakness TECHNIQUE: FINDINGS: There is left axillary pacemaker. There is no heart failure nor confluent pneumonic infiltr ate. There is no definite pleural effusion. There are no hilar masses. There are sternal wires. Heart size is fairly normal. IMPRESSION: No active cardiopulmonary disease. There is revision of the pacemaker compared to old exa m.
--- NOTE | 2020-01-28 18:54 | US ---
EXAMINATION TYPE: US kidneys/renal and bladder DATE OF EXAM: 01/28/2020 COMPARISON: NONE CLINICAL HISTORY: XUAN, levator creatinine. XUAN, levator creatinine per order. EXAM MEASUREMENTS: Right Kidney: 10.1 x 4.8 x 5.5 cm Left Kidney: 10.5 x 4.7 x 5.4 cm Right Kidney: No hydronephrosis or masses seen Left Kidney: No hydronephrosis or masses seen Bladder: Possible minimal internal echoes. Not fully distended. Bilateral Jets seen: Yes Incidental finding: gallbladder appears to be upper limits of normal versus slightly enlarged measuri ng 10.2 cm in length and 3.9 cm in width. Possible internal echoes versus artifact. IMPRESSION: No evidence of renal mass or obstruction. There are bilateral ureteral jets in the urinary bladder. B orderline dilated gallbladder.
[2020-01-29] MEDS: ATORVASTATIN 80 MG TAB PO SCH ×2 (00:56→20:28)
[2020-01-29] MEDS: APIXABAN 5 MG TAB PO SCH ×3 (00:56→20:28)
[2020-01-29] MEDS: SODIUM CHLORIDE 0.9% 1,000 ML IV SCH ×3 (00:56→20:28)
[2020-01-29] MEDS: allopurinoL 100 MG TAB PO SCH (08:10)
[2020-01-29] MEDS: METOPROLOL SUCCINATE (ER) 25 MG TAB.ER.24H PO SCH (08:10)
[2020-01-29] MEDS: CYANOCOBALAMIN 500 MCG TAB PO SCH (08:10)
[2020-01-29] MEDS: ASPIRIN 81 MG PO SCH (08:10)
[2020-01-29] MEDS: SERTRALINE 50 MG TAB PO SCH (08:11)
[2020-01-29] MEDS: PANTOPRAZOLE 40 MG TABLET PO SCH (08:11)
[2020-01-29] MEDS: ASCORBIC ACID 500 MG TAB PO SCH (08:11)
[2020-01-29] MEDS ORDERED: Magnesium Replacement Protocol 1 EACH MISC MISCELLANE PRN (08:51)
[2020-01-29] MEDS ORDERED: NON FORMULARY DRUG (Cholecalciferol (Vitamin D3) [Vitamin D3] 125 MCG Capsule) PO SCH (09:00)
[2020-01-29 09:30] LABS: Calcium 8.4 mg/dL (8.4-10.2); Magnesium 1.1 mg/dL (1.6-2.3); Potassium 3.3 mmol/L (3.5-5.1)
[2020-01-29] MEDS ORDERED: POTASSIUM CHLORIDE ER 20 MEQ TAB.ER PO STA (10:36)
--- NOTE | 2020-01-29 10:38 | P.NPCON ---
History of Present Illness - Reason for Consult acute renal failure - History of Present Illness Reason for consultation: Acute kidney injury on chronic kidney disease History of present illness: Patient is a 79-year-old male seen in consultation for acute kidney injury on chronic kidney disease Patient has chronic kidney disease stage III with baseline creatinine in the range of 1-1.3 secondary to nephrosclerosis. Creatinine was 3.16 on admission and is down to 1.98 today. Patient denies any significant complaints. Patient states he had blood work done at his primary care physician's office and was advised to come to the hospital due to abnormal labs. He denies chest pain or shortness of breath. Oral intake has been fair. No vomiting or diarrhea. Denies regular use of nonsteroidals. Good urine output. No hematuria or dysuria. No fever or chills. Blood pressure has been on the lower side and was as low as 77/64 overnight. Most recent 96/68 earlier this morning. He was on Lasix as well as spironolactone and entresto at home which are all currently held. No evidence of fluid overload. He is maintained on IV fluids with normal saline running at 60 mL an hour. No history of diabetes. Denies family history of renal disease. Vital signs are stable. General: The patient appeared well nourished and normally developed. HEENT: Head exam is unremarkable. Neck is without jugular venous distension. LUNGS: Lungs are clear to auscultation and percussion. Breath sounds decreased. HEART: Rate and Rhythm are regular. ABDOMEN: Soft, nontender. EXTREMITITES: No edema. Past Medical History Past Medical History: Coronary Artery Disease (CAD), Heart Failure History of Any Multi-Drug Resistant Organisms: None Reported Past Surgical History: Coronary Bypass/CABG Additional Past Surgical History / Comment(s): TIMUR in 1995 Past Anesthesia/Blood Transfusion Reactions: No Reported Reaction Past Psychological History: No Psychological Hx Reported Smoking Status: Never smoker Past Alcohol Use History: None Reported Past Drug Use History: None Reported - Past Family History Father Family Medical History: Coronary Artery Disease (CAD) Mother Family Medical History: Coronary Artery Disease (CAD) Medications and Allergies Home Medications Medication Instructions Recorded Confirmed Type Acetaminophen Tab [Tylenol] 500 mg PO QID 02/03/19 01/28/20 History Ascorbic Acid [Vitamin C] 500 mg PO DAILY 02/03/19 01/28/20 History Aspirin EC [Ecotrin Low Dose] 81 mg PO DAILY 02/03/19 01/28/20 History [place]-3 Fatty Acids/Fish Oil [Fish 1 cap PO BID 02/03/19 01/28/20 History Oil 1,000 mg Softgel] Omeprazole 20 mg PO DAILY 02/03/19 01/28/20 History Potassium Chloride ER [K-Dur 10] 10 meq PO DAILY 02/03/19 01/28/20 History Apixaban [Eliquis] 5 mg PO BID #60 tab 02/07/19 01/28/20 Rx Sacubitril/Valsartan [Entresto 24 1 tab PO BID 04/06/19 01/28/20 History mg-26 mg Tablet] Metoprolol Succinate (ER) [Toprol 25 mg PO DAILY #30 tab.er.24h 04/10/19 01/28/20 Rx XL] Allopurinol [Zyloprim] 100 mg PO DAILY 01/28/20 01/28/20 History Atorvastatin [Lipitor] 80 mg PO HS 01/28/20 01/28/20 History Cholecalciferol (Vitamin D3) 125 mcg PO DAILY 01/28/20 01/28/20 History [Vitamin D3] Cyanocobalamin (Vitamin B-12) 1,000 mcg PO DAILY 01/28/20 01/28/20 History [Vitamin B-12] Furosemide [Lasix] 40 mg PO BID 01/28/20 01/28/20 History Sertraline [Zoloft] 50 mg PO DAILY 01/28/20 01/28/20 History Spironolactone [Aldactone] 25 mg PO DAILY 01/28/20 01/28/20 History Allergies Allergy/AdvReac Type Severity Reaction Status Date / Time No Known Allergies Allergy Verified 01/28/20 17:43 Physical Exam Vitals: Vital Signs Temp Pulse Pulse Resp BP BP Pulse Ox 01/29/20 03:47 16 96/68 96 01/29/20 02:00 79 16 01/29/20 01:32 98.3 F 79 16 77/64 96 01/29/20 00:00 98.4 F 82 15 87/60 96 01/28/20 20:00 98.3 F 97 15 97 01/28/20 18:00 97.8 F 82 18 98/58 97 01/28/20 14:43 97.8 F 62 18 98/56 97 Intake and Output 01/28/20 01/29/20 01/29/20 22:59 06:59 14:59 Intake Total 360 Output Total 225 Balance 135 Intake: Intake, IV Titration 360 Amount Sodium Chloride 0.9% 1, 360 000 ml @ 60 mls/hr IV . [id number] [facility] Rx#:[id number] Output: Urine 225 Other: Weight 69.853 kg Results - Lab Results Most recent lab results Calcium 8.4 mg/dL (8.4-10.2) 01/29/20 08:43 Magnesium 1.1 mg/dL (1.6-2.3) L 01/29/20 08:43 01/28/20 15:00 01/29/20 08:43 Assessment and Plan Plan: Assessment: 1. Acute kidney injury mostly prerenal secondary to hypotension and diuretics. Creatinine was 3.16 on admission and is 1.98 today. UA benign. No hydronephrosis noted on kidney ultrasound. 2. Chronic kidney disease stage III with baseline creatinine in the range of 1- 1.3 secondary to nephrosclerosis. 3. Metabolic acidosis secondary to acute kidney injury and IV fluids. 4. Hypokalemia secondary to diuretics and hypomagnesemia. 5. Hypomagnesemia from poor intake and diuretics. Plan: Continue to hold diuretics. Maintain normal saline. Replace potassium. 40 mEq today. Replace magnesium. 3 g IV today. Add oral sodium bicarbonate. Check a.m. cortisol level. Repeat electrolytes in the morning. Thank you for the consultation. I will continue to follow the patient with you during his hospital stay.
[2020-01-29] MEDS: MAGNESIUM SULFATE-D5W PMX 1 GM in DEXTROSE/WATER 1 100ML.BAG IVPB SCH ×3 (11:06→12:21)
[2020-01-29] MEDS: SODIUM BICARBONATE TAB 650 MG TAB PO SCH ×3 (11:06→20:28)
--- NOTE | 2020-01-29 12:27 | P.CRDCN ---
History of Present Illness History of present illness: HISTORY OF PRESENTING ILLNESS This is a pleasant 79-year-old male past medical history significant for coronary artery disease status post bypass grafting 4 in 1995, ischemic cardiomyopathy status post AICD, chronic systolic heart failure, hypertension, dyslipidemia and paroxysmal atrial fibrillation maintained on Eliquis. He follows in the office with Dr. Villalobos. We have been asked to see in consultation for heart failure. The patient is having no symptoms of anything. He was sent to the hospital on recommendation by his primary care physician secondary to abnormal renal function. He denies symptoms of chest pain, shortness of breath, dizziness or palpitations. He states over the previous one year since losing his he has struggled significantly with depression, lack of energy and poor oral intake. DIAGNOSTICS EKG reveals ventricular paced rhythm with underlying sinus mechanism. Chest xray negative for acute cardiopulmonary process. Ultrasound of the abdomen reveals no evidence of renal mass or obstruction. Laboratory reviewed, CBC unremarkable, sodium 139, potassium 3.7, creatinine on admission 3.16 repeat today 3.07, magnesium 1.2 and troponin 0.05 to. Current cardiac medications include Aldactone 25 mg daily, entresto 24/26 mg twice a day, Toprol 25 mg daily, Lasix 40 mg twice a day, atorvastatin 80 mg daily, aspirin 81 mg daily and Eliquis 5 mg twice a day. Most recent echocardiogram obtained January 2019 reveals impaired LV systolic function with ejection fraction 20-25%, severe global LV hypokinesia, grade 3 diastolic dysfunction, mild aortic regurgitation and moderate mitral regurgitation. REVIEW OF SYSTEMS At the time of my exam: CONSTITUTIONAL: Denies fever or chills. CARDIOVASCULAR: Denies chest pain, shortness of breath, orthopnea, PND or palpitations. RESPIRATORY: Denies cough. GASTROINTESTINAL: Denies abdominal pain, diarrhea, constipation, nausea or vomiting. MUSCULOSKELETAL: Denies myalgias. NEUROLOGIC: Denies numbness, tingling or weakness. ENDOCRINE: Denies fatigue, weight change, polydipsia or polyurina. GENITOURINARY: Denies burning, hematuria or urgency with micturation. HEMATOLOGIC: Denies history of anemia or bleeding. PHYSICAL EXAMINATION Blood pressure 96/68 heart rate 79 afebrile and maintaining oxygen saturation on room air. CONSTITUTIONAL: No apparent distress. HEENT: Head is normocephalic. Pupils are equal, round. Sclerae anicteric. Mucous membranes of the mouth are moist. No JVD. No carotid bruit. CHEST EXAMINATION: Lungs are clear to auscultation. No chest wall tenderness is noted on palpation or with deep breathing. HEART EXAMINATION: Regular rate and rhythm. S1, S2 heard. No murmurs, gallops or rub. ABDOMEN: Soft, nontender. Positive bowel sounds. EXTREMITIES: 2+ peripheral pulses, no lower extremity edema and no calf tenderness. NEUROLOGIC EXAMINATION: Patient is awake, alert and oriented x3. ASSESSMENT Acute kidney injury Hypotension Hypomagnesemia Poor oral intake Ischemic cardiomyopathy status post AICD Chronic systolic heart failure, clinically euvolemic Coronary artery disease status post bypass grafting Paroxysmal atrial fibrillation maintained on Eliquis Hypertension Dyslipidemia PLAN Replace magnesium per protocol. Hold antihypertensives. Repeat BMP and magnesium level in the morning. Further recommendations to follow based on clinical course. Thank you kindly for this consultation. Nurse Practitioner note has been reviewed, I agree with a documented findings and plan of care. Patient was seen and examined. Past Medical History Past Medical History: Coronary Artery Disease (CAD), Heart Failure History of Any Multi-Drug Resistant Organisms: None Reported Past Surgical History: Coronary Bypass/CABG Additional Past Surgical History / Comment(s): TIMUR in 1995 Past Anesthesia/Blood Transfusion Reactions: No Reported Reaction Past Psychological History: No Psychological Hx Reported Smoking Status: Never smoker Past Alcohol Use History: None Reported Past Drug Use History: None Reported - Past Family History Father Family Medical History: Coronary Artery Disease (CAD) Mother Family Medical History: Coronary Artery Disease (CAD) Medications and Allergies Home Medications Medication Instructions Recorded Confirmed Type Acetaminophen Tab [Tylenol] 500 mg PO QID 02/03/19 01/28/20 History Ascorbic Acid [Vitamin C] 500 mg PO DAILY 02/03/19 01/28/20 History Aspirin EC [Ecotrin Low Dose] 81 mg PO DAILY 02/03/19 01/28/20 History [place]-3 Fatty Acids/Fish Oil [Fish 1 cap PO BID 02/03/19 01/28/20 History Oil 1,000 mg Softgel] Omeprazole 20 mg PO DAILY 02/03/19 01/28/20 History Potassium Chloride ER [K-Dur 10] 10 meq PO DAILY 02/03/19 01/28/20 History Apixaban [Eliquis] 5 mg PO BID #60 tab 02/07/19 01/28/20 Rx Sacubitril/Valsartan [Entresto 24 1 tab PO BID 04/06/19 01/28/20 History mg-26 mg Tablet] Metoprolol Succinate (ER) [Toprol 25 mg PO DAILY #30 tab.er.24h 04/10/19 01/28/20 Rx XL] Allopurinol [Zyloprim] 100 mg PO DAILY 01/28/20 01/28/20 History Atorvastatin [Lipitor] 80 mg PO HS 01/28/20 01/28/20 History Cholecalciferol (Vitamin D3) 125 mcg PO DAILY 01/28/20 01/28/20 History [Vitamin D3] Cyanocobalamin (Vitamin B-12) 1,000 mcg PO DAILY 01/28/20 01/28/20 History [Vitamin B-12] Furosemide [Lasix] 40 mg PO BID 01/28/20 01/28/20 History Sertraline [Zoloft] 50 mg PO DAILY 01/28/20 01/28/20 History Spironolactone [Aldactone] 25 mg PO DAILY 01/28/20 01/28/20 History Allergies Allergy/AdvReac Type Severity Reaction Status Date / Time No Known Allergies Allergy Verified 01/28/20 17:43 Physical Exam Vitals: Vital Signs Temp Pulse Pulse Resp BP BP Pulse Ox 01/29/20 03:47 16 96/68 96 01/29/20 02:00 79 16 01/29/20 01:32 98.3 F 79 16 77/64 96 01/29/20 00:00 98.4 F 82 15 87/60 96 01/28/20 20:00 98.3 F 97 15 97 01/28/20 18:00 97.8 F 82 18 98/58 97 01/28/20 14:43 97.8 F 62 18 98/56 97 Intake and Output 01/28/20 01/29/20 01/29/20 22:59 06:59 14:59 Intake Total 360 Output Total 225 Balance 135 Intake: Intake, IV Titration 360 Amount Sodium Chloride 0.9% 1, 360 000 ml @ 60 mls/hr IV . [id number] [facility] Rx#:[id number] Output: Urine 225 Other: Weight 69.853 kg Results 01/28/20 15:00 01/29/20 08:43 Cardiac Enzymes 01/28/20 01/28/20 Range/Units 16:39 16:39 AST 17 (17-59) U/L Troponin I 0.052 H* (0.000-0.034) ng/mL Coagulation 01/28/20 Range/Units 16:39 PT 11.2 (9.0-12.0) sec APTT 29.6 (22.0-30.0) sec CBC 01/28/20 Range/Units 15:00 WBC 7.5 (3.8-10.6) k/uL RBC 4.33 (4.30-5.90) m/uL Hgb 12.9 L (13.0-17.5) gm/dL Hct 39.3 (39.0-53.0) % Plt Count 195 (150-450) k/uL Comprehensive Metabolic Panel 01/28/20 01/28/20 Range/Units 15:00 16:39 Sodium 137 139 (137-145) mmol/L Potassium 3.8 3.7 (3.5-5.1) mmol/L Chloride 111 H 109 H (98-107) mmol/L Carbon Dioxide 15 L 16 L (22-30) mmol/L BUN 77 H 76 H (9-20) mg/dL Creatinine 3.16 H 3.07 H (0.66-1.25) mg/dL Glucose 102 H 91 (74-99) mg/dL Calcium 9.2 9.4 (8.4-10.2) mg/dL AST 17 (17-59) U/L ALT 13 (4-49) U/L Alkaline Phosphatase 55 (38-126) U/L Total Protein 7.2 (6.3-8.2) g/dL Albumin 4.5 (3.5-5.0) g/dL Current Medications Generic Name Dose Route Start Last Admin Trade Name Freq PRN Reason Stop Dose Admin Acetaminophen 650 mg 01/28/20 17:13 Acetaminophen Tab 325 Mg Tab PO Q6HR PRN Mild Pain or Fever > 100.5 Allopurinol 100 mg 01/29/20 09:00 01/29/20 08:10 Allopurinol 100 Mg Tab PO 100 mg DAILY SUNSHINE Administration Apixaban 5 mg 01/28/20 21:45 01/29/20 08:11 Apixaban 5 Mg Tab PO 5 mg BID SUNSHINE Administration Ascorbic Acid 500 mg 01/29/20 09:00 01/29/20 08:11 Ascorbic Acid 500 Mg Tab PO 500 mg DAILY SUNSHINE Administration Aspirin 81 mg 01/29/20 09:00 01/29/20 08:10 Aspirin 81 Mg PO 81 mg DAILY SUNSHINE Administration Atorvastatin Calcium 80 mg 01/28/20 21:45 01/29/20 00:56 Atorvastatin 80 Mg Tab PO 80 mg HS SUNSHINE Administration Cyanocobalamin 1,000 mcg 01/29/20 09:00 01/29/20 08:10 Cyanocobalamin 500 Mcg Tab PO 1,000 mcg DAILY SUNSHINE Administration Sodium Chloride 1,000 mls @ 60 mls/hr 01/28/20 17:15 01/29/20 08:03 Saline 0.9% IV Not Given .[id number] SUNSHINE Metoprolol Succinate 25 mg 01/29/20 09:00 01/29/20 08:10 Metoprolol Succinate (Er) 25 Mg Tab.Er.24h PO 25 mg DAILY SUNSHINE Administration Naloxone HCl 0.2 mg 01/28/20 17:13 Naloxone 0.4 Mg/Ml 1 Ml Vial IV Q2M PRN Opioid Reversal Pantoprazole Sodium 40 mg 01/29/20 07:30 01/29/20 08:11 Pantoprazole 40 Mg Tablet PO 40 mg DAILY@0730 SUNSHINE Administration Sertraline HCl 50 mg 01/29/20 09:00 01/29/20 08:11 Sertraline 50 Mg Tab PO 50 mg DAILY SUNSHINE Administration Intake and Output 01/28/20 01/29/20 01/29/20 22:59 06:59 14:59 Intake Total 360 Output Total 225 Balance 135 Intake: Intake, IV Titration 360 Amount Sodium Chloride 0.9% 1, 360 000 ml @ 60 mls/hr IV . [id number] [facility] Rx#:[id number] Output: Urine 225 Other: Weight 69.853 kg 01/28/20 15:00 01/28/20 16:39
--- NOTE | 2020-01-29 20:33 | P.HPIM ---
History of Present Illness H&P Date: 01/29/20 Chief Complaint: Tired History of presenting complaint 79-year-old patient of Dr. Daly, chronic stable medical conditions include moderate mitral regurgitation, coronary artery disease bypass, essential hypertension, hyperlipidemia, ascending thoracic aortic aneurysm 4.3 cm, EF of 20/25 percent. AICD: Patient was sent to the ER and patient's physician found a creatinine to have gone up. Patient had a been a bit tired. No chest pain. No shortness of breath. Recently his appetite has gone down. Has been feeling weak for about one or 2 weeks. Urine output has been low. No fever no chills. No recent change in medications. Review of systems: GEN.: Tired EYES: None HEENT: Decreased hearing] NECK: None RESPIRATORY: Baseline mild shortness breath CARDIOVASCULAR: None GASTROINTESTINAL: None GENITOURINARY: None MUSCULOSKELETAL: Joint pains LYMPHATICS: None HEMATOLOGICAL: None PSYCHIATRY: None NEUROLOGICAL: None Past medical history to include: Moderate mitral regurgitation, coronary artery disease and history of bypass, essential hypertension, hyperlipidemia, ascending thoracic aortic aneurysm 4.3; CHF EF 20-45% Social history: No smoking, no alcohol. Physical examination: VITAL SIGNS: 97.8, 62, 18, 98 x 56, 97% on room air-upon presentation GENERAL: Sitting up, awake EYES: Pupils equal. Conjunctiva normal. HEENT: External appearance of nose and ears normal, oral cavity grossly normal decreased hearing. NECK: JVD not raised; masses not palpable. HEART: First and second heart sounds are normal; no edema. LUNGS: Respiratory rate normal; decreased breath sounds. ABDOMEN: Soft, nontender, liver spleen not palpable, no masses palpable. PSYCH: Alert and oriented x3; mood and affect normal. INVESTIGATIONS, reviewed in the clinical context: White count 7.5 hemoglobin 12.9 platelets 195 potassium 3.8 bun 77 creatinine 3.16 Troponin I 0.05 to UA negative EKG tracing personally reviewed by me-ventricular paced rhythm. Chest x-ray film personally reviewed by me-chronic changes Previous testing: BUN 32, creatinine 1.33 on March 2019 Assessment: -Acute kidney injury likely prerenal possibly ATN the combination of patient -AICD -Hypotension from volume loss -troponin leak, acute kidney injury -chronic congestive heart failure from systolic dysfunction EF 20-25%, -Moderate mitral regurgitation nonrheumatic -Coronary artery disease prior history of coronary artery bypass -Essential hypertension -Hyperlipidemia -Ascending thoracic aortic aneurysm 4.3 cm -Metabolic acidosis from renal failure Plan: Upon admission Lasix Aldactone and interested was discontinued. Given IV fluids. Renal function is improving. Patient is feeling better. Oral intake improving. Nephrology and oncology were consulted. Sodium bicarbonate to be added. Repeat labs in the morning. Past Medical History Past Medical History: Coronary Artery Disease (CAD), Heart Failure History of Any Multi-Drug Resistant Organisms: None Reported Past Surgical History: Coronary Bypass/CABG Additional Past Surgical History / Comment(s): TIMUR in 1995 Past Anesthesia/Blood Transfusion Reactions: No Reported Reaction Past Psychological History: No Psychological Hx Reported Smoking Status: Never smoker Past Alcohol Use History: None Reported Past Drug Use History: None Reported - Past Family History Father Family Medical History: Coronary Artery Disease (CAD) Mother Family Medical History: Coronary Artery Disease (CAD) Medications and Allergies Home Medications Medication Instructions Recorded Confirmed Type Acetaminophen Tab [Tylenol] 500 mg PO QID 02/03/19 01/28/20 History Ascorbic Acid [Vitamin C] 500 mg PO DAILY 02/03/19 01/28/20 History Aspirin EC [Ecotrin Low Dose] 81 mg PO DAILY 02/03/19 01/28/20 History [place]-3 Fatty Acids/Fish Oil [Fish 1 cap PO BID 02/03/19 01/28/20 History Oil 1,000 mg Softgel] Omeprazole 20 mg PO DAILY 02/03/19 01/28/20 History Potassium Chloride ER [K-Dur 10] 10 meq PO DAILY 02/03/19 01/28/20 History Apixaban [Eliquis] 5 mg PO BID #60 tab 02/07/19 01/28/20 Rx Sacubitril/Valsartan [Entresto 24 1 tab PO BID 04/06/19 01/28/20 History mg-26 mg Tablet] Metoprolol Succinate (ER) [Toprol 25 mg PO DAILY #30 tab.er.24h 04/10/19 01/28/20 Rx XL] Allopurinol [Zyloprim] 100 mg PO DAILY 01/28/20 01/28/20 History Atorvastatin [Lipitor] 80 mg PO HS 01/28/20 01/28/20 History Cholecalciferol (Vitamin D3) 125 mcg PO DAILY 01/28/20 01/28/20 History [Vitamin D3] Cyanocobalamin (Vitamin B-12) 1,000 mcg PO DAILY 01/28/20 01/28/20 History [Vitamin B-12] Furosemide [Lasix] 40 mg PO BID 01/28/20 01/28/20 History Sertraline [Zoloft] 50 mg PO DAILY 01/28/20 01/28/20 History Spironolactone [Aldactone] 25 mg PO DAILY 01/28/20 01/28/20 History Allergies Allergy/AdvReac Type Severity Reaction Status Date / Time No Known Allergies Allergy Verified 01/28/20 17:43 Physical Exam Vitals: Vital Signs Temp Pulse Pulse Resp BP BP Pulse Ox 01/29/20 03:47 16 96/68 96 01/29/20 02:00 79 16 01/29/20 01:32 98.3 F 79 16 77/64 96 01/29/20 00:00 98.4 F 82 15 87/60 96 01/28/20 20:00 98.3 F 97 15 97 01/28/20 18:00 97.8 F 82 18 98/58 97 01/28/20 14:43 97.8 F 62 18 98/56 97 Intake and Output 01/28/20 01/29/20 01/29/20 22:59 06:59 14:59 Intake Total 360 Output Total 225 Balance 135 Intake: Intake, IV Titration 360 Amount Sodium Chloride 0.9% 1, 360 000 ml @ 60 mls/hr IV . [id number] [facility] Rx#:[id number] Output: Urine 225 Other: Weight 69.853 kg Results CBC & Chem 7: 01/28/20 15:00 01/29/20 08:43 Labs: Abnormal Lab Results - Last 24 Hours (Table) 01/28/20 01/28/20 01/28/20 Range/Units 15:00 15:00 16:39 Hgb 12.9 L (13.0-17.5) gm/dL RDW 16.5 H (11.5-15.5) % Lymphocytes # 0.5 L (1.0-4.8) k/uL Potassium (3.5-5.1) mmol/L Chloride 111 H 109 H (98-107) mmol/L Carbon Dioxide 15 L 16 L (22-30) mmol/L BUN 77 H 76 H (9-20) mg/dL Creatinine 3.16 H 3.07 H (0.66-1.25) mg/dL Glucose 102 H (74-99) mg/dL Magnesium 1.2 L (1.6-2.3) mg/dL Troponin I (0.000-0.034) ng/mL 01/28/20 01/29/20 Range/Units 16:39 08:43 Hgb (13.0-17.5) gm/dL RDW (11.5-15.5) % Lymphocytes # (1.0-4.8) k/uL Potassium 3.3 L (3.5-5.1) mmol/L Chloride 113 H (98-107) mmol/L Carbon Dioxide 17 L (22-30) mmol/L BUN 62 H (9-20) mg/dL Creatinine 1.98 H (0.66-1.25) mg/dL Glucose 102 H (74-99) mg/dL Magnesium 1.1 L (1.6-2.3) mg/dL Troponin I 0.052 H* (0.000-0.034) ng/mL Thrombosis Risk Factor Assmnt - Choose All That Apply Any of the Below Risk Factors Present?: No Other Risk Factors: Yes Each Risk Factor Represents 3 Points: Age 75 years or older Thrombosis Risk Factor Assessment Total Risk Factor Score: 3 Thrombosis Risk Factor Assessment Level: Moderate Risk
[2020-01-30] MEDS: PANTOPRAZOLE 40 MG TABLET PO SCH (06:31)
[2020-01-30] MEDS: METOPROLOL SUCCINATE (ER) 25 MG TAB.ER.24H PO SCH (08:46)
[2020-01-30] MEDS: ASCORBIC ACID 500 MG TAB PO SCH (08:46)
[2020-01-30] MEDS: SERTRALINE 50 MG TAB PO SCH (08:46)
[2020-01-30] MEDS: SODIUM BICARBONATE TAB 650 MG TAB PO SCH ×3 (08:46→21:13)
[2020-01-30] MEDS: CYANOCOBALAMIN 500 MCG TAB PO SCH (08:46)
[2020-01-30] MEDS: ASPIRIN 81 MG PO SCH (08:46)
[2020-01-30] MEDS: APIXABAN 5 MG TAB PO SCH ×2 (08:47→21:13)
[2020-01-30] MEDS: allopurinoL 100 MG TAB PO SCH (08:47)
[2020-01-30 11:02] LABS: Anisocytosis Slight; HCT 35.4 % (39.0-53.0); HGB 11.7 gm/dL (13.0-17.5); MCH 30.2 pg (25.0-35.0); MCHC 33.1 g/dL (31.0-37.0); MCV 91.4 fL (80.0-100.0); Mean Platelet Volume 7.6; Platelet Count 190 k/uL (150-450); RBC 3.87 m/uL (4.30-5.90); RDW 16.3 % (11.5-15.5); WBC 5.8 k/uL (3.8-10.6)
--- NOTE | 2020-01-30 11:40 | P.PN ---
Subjective Progress Note Date: 01/30/20 This is a 79-year-old gentleman with past medical history significant for coronary artery disease and prior bypass surgery, ischemic cardio myopathy with prior AICD, chronic systolic congestive heart failure, hypertension, hyperlipidemia, paroxysmal atrial fibrillation maintained on Eliquis. He follows in the office with Dr. Mena. Cardiology was asked to see the patient because of congestive cardiac failure, he appears to be euvolemic at this time. Patient was advised to come to the hospital on this admission because of abnormal renal function. Blood pressure 110/60 with a heart rate in the 90s, 94% on room air. White blood cell count 5.8, hemoglobin 11.7, platelet count 190. Objective - Vital Signs Vital signs: Vital Signs Temp 98 F 01/30/20 08:45 Pulse 93 01/30/20 08:45 Resp 18 01/30/20 08:45 BP 110/63 01/30/20 08:45 Pulse Ox 94 L 01/30/20 08:45 Intake & Output 01/29/20 01/30/20 01/30/20 18:59 06:59 18:59 Intake Total 240 240 180 Output Total 550 Balance 240 -310 180 Weight 68.9 kg Intake: Oral 240 240 180 Output: Urine 550 Other: Voiding Method Toilet # Voids 1 1 1 # Bowel Movements 0 - Exam PHYSICAL EXAMINATION Blood pressure 110/60 heart rate 89 afebrile and maintaining oxygen saturation on room air. CONSTITUTIONAL: No apparent distress. HEENT: Head is normocephalic. Pupils are equal, round. Sclerae anicteric. Mucous membranes of the mouth are moist. No JVD. No carotid bruit. CHEST EXAMINATION: Lungs are clear to auscultation. No chest wall tenderness is noted on palpation or with deep breathing. HEART EXAMINATION: Regular rate and rhythm. S1, S2 heard. No murmurs, gallops or rub. ABDOMEN: Soft, nontender. Positive bowel sounds. EXTREMITIES: 2+ peripheral pulses, no lower extremity edema and no calf tenderness. NEUROLOGIC EXAMINATION: Patient is awake, alert and oriented x3. - Labs CBC & Chem 7: 01/30/20 09:10 01/29/20 08:43 Assessment and Plan Plan: Assessment and plan #1 acute kidney injury #2 poor oral intake #3 ischemic cardio myopathy with prior AICD #4 coronary artery disease status post bypass surgery 3 chronic systolic congestive heart failure, currently euvolemic #6 hypertension #7 hyperlipidemia Plan We will continue to monitor the patient's blood pressure and renal function. We will need to resume some of the patient's home medications as he continues to improve. DNP note has been reviewed, I agree with a documented findings and plan of care. Patient was seen and examined.
[2020-01-30 12:14] LABS: Calcium 9.3 mg/dL (8.4-10.2); Magnesium 2.2 mg/dL (1.6-2.3)
[2020-01-30] MEDS: MAGNESIUM SULFATE-D5W PMX 1 GM in DEXTROSE/WATER 1 100ML.BAG IVPB SCH ×2 (12:43→15:41)
[2020-01-30] MEDS: SODIUM CHLORIDE 0.9% 1,000 ML IV SCH (12:43)
--- NOTE | 2020-01-30 13:40 | P.PN ---
Subjective Patient is seen in follow-up for acute kidney injury. Renal function is improving. Creatinine 1.45 today. Oral intake is slowly improving as well. No vomiting or diarrhea. Blood pressure stable. Vital signs are stable. General: The patient appeared well nourished and normally developed. HEENT: Head exam is unremarkable. Neck is without jugular venous distension. LUNGS: Breath sounds decreased. HEART: Rate and Rhythm are regular. ABDOMEN: Soft, nontender. EXTREMITITES: No edema. Objective - Vital Signs Vital signs: Vital Signs Temp 97.7 F 01/30/20 12:49 Pulse 76 01/30/20 12:49 Resp 16 01/30/20 12:49 BP 107/58 01/30/20 12:49 Pulse Ox 97 01/30/20 12:49 Intake & Output 01/29/20 01/30/20 01/30/20 18:59 06:59 18:59 Intake Total 240 240 180 Output Total 550 Balance 240 -310 180 Weight 68.9 kg Intake: Oral 240 240 180 Output: Urine 550 Other: Voiding Method Toilet Toilet # Voids 1 1 2 # Bowel Movements 0 - Labs CBC & Chem 7: 01/30/20 09:10 01/30/20 09:10 Labs: Abnormal Lab Results - Last 24 Hours (Table) 01/30/20 01/30/20 Range/Units 09:10 09:10 RBC 3.87 L (4.30-5.90) m/uL Hgb 11.7 L (13.0-17.5) gm/dL Hct 35.4 L (39.0-53.0) % RDW 16.3 H (11.5-15.5) % Chloride 116 H (98-107) mmol/L Carbon Dioxide 21 L (22-30) mmol/L BUN 41 H (9-20) mg/dL Creatinine 1.45 H (0.66-1.25) mg/dL Assessment and Plan Plan: Assessment: 1. Acute kidney injury mostly prerenal secondary to hypotension and diuretics. Creatinine was 3.16 on admission and is 1.45 today. UA benign. No hydronephrosis noted on kidney ultrasound. 2. Chronic kidney disease stage III with baseline creatinine in the range of 1- 1.3 secondary to nephrosclerosis. 3. Metabolic acidosis secondary to acute kidney injury and IV fluids. Maintain on oral bicarb. Better. 4. Hypokalemia secondary to diuretics and hypomagnesemia. Status post rep lacement. Resolved. 5. Hypomagnesemia from poor intake and diuretics. Resolved posterior placemen t. Plan: Continue to hold diuretics. Maintain normal saline. AM cortisol level normal. Repeat electrolytes in the morning.
--- NOTE | 2020-01-30 19:56 | P.PN ---
Progress Note - Text Progress Note Date: 01/30/20 Chief Complaint: Tired History of presenting complaint 79-year-old patient of Dr. Daly, chronic stable medical conditions include moderate mitral regurgitation, coronary artery disease bypass, essential hypertension, hyperlipidemia, ascending thoracic aortic aneurysm 4.3 cm, EF of 20/25 percent. AICD: Patient was sent to the ER and patient's physician found a creatinine to have gone up. Patient had a been a bit tired. No chest pain. No shortness of breath. Recently his appetite has gone down. Has been feeling weak for about one or 2 weeks. Urine output has been low. No fever no chills. No recent change in medications. Admitted with an acute kidney injury prerenal, from medications, hypotension from volume loss. Diuretics etc. were discontinued. Gently hydrated. Today-feeling better. Kidney function slowly improving. Up to the bathroom. Oral intake fair Review of systems: Was done for constitutional, cardiovascular, GI, pulmonary. relevant finding as above Active Medications Acetaminophen (Acetaminophen Tab 325 Mg Tab) 650 mg PO Q6HR PRN PRN Reason: Mild Pain or Fever > 100.5 Allopurinol (Allopurinol 100 Mg Tab) 100 mg PO DAILY [facility] Last Admin: 01/30/20 08:47 Dose: 100 mg Documented by: Apixaban (Apixaban 5 Mg Tab) 5 mg PO BID [facility] Last Admin: 01/30/20 08:47 Dose: 5 mg Documented by: Ascorbic Acid (Ascorbic Acid 500 Mg Tab) 500 mg PO DAILY [facility] Last Admin: 01/30/20 08:46 Dose: 500 mg Documented by: Aspirin (Aspirin 81 Mg) 81 mg PO DAILY [facility] Last Admin: 01/30/20 08:46 Dose: 81 mg Documented by: Atorvastatin Calcium (Atorvastatin 80 Mg Tab) 80 mg PO HS [facility] Last Admin: 01/29/20 20:28 Dose: 80 mg Documented by: Cyanocobalamin (Cyanocobalamin 500 Mcg Tab) 1,000 mcg PO DAILY [facility] Last Admin: 01/30/20 08:46 Dose: 1,000 mcg Documented by: Sodium Chloride (Saline 0.9%) 1,000 mls @ 60 mls/hr IV .[id number] [facility] Last Admin: 01/30/20 12:43 Dose: 60 mls/hr Documented by: Metoprolol Succinate (Metoprolol Succinate (Er) 25 Mg Tab.Er.24h) 25 mg PO DAILY [facility] Last Admin: 01/30/20 08:46 Dose: 25 mg Documented by: Miscellaneous Information (Magnesium Replacement Protocol 1 Each [facility]) 1 each MISCELLANE DAILY PRN; Protocol PRN Reason: Per Protocol Naloxone HCl (Naloxone 0.4 Mg/Ml 1 Ml Vial) 0.2 mg IV Q2M PRN PRN Reason: Opioid Reversal Pantoprazole Sodium (Pantoprazole 40 Mg Tablet) 40 mg PO DAILY@0730 [facility] Last Admin: 01/30/20 06:31 Dose: 40 mg Documented by: Sertraline HCl (Sertraline 50 Mg Tab) 50 mg PO DAILY [facility] Last Admin: 01/30/20 08:46 Dose: 50 mg Documented by: Sodium Bicarbonate (Sodium Bicarbonate Tab 650 Mg Tab) 650 mg PO TID [facility] Last Admin: 01/30/20 15:41 Dose: 650 mg Documented by: Physical examination: VITAL SIGNS: 97.7, 76, 16, 107/58, 97% on room air GENERAL: Sitting up, comfortable EYES: Pupils equal. Conjunctiva normal. HEENT: External appearance of nose and ears normal, oral cavity grossly normal decreased hearing. NECK: JVD not raised; masses not palpable. HEART: First and second heart sounds are normal; no edema. LUNGS: Respiratory rate normal; decreased breath sounds. ABDOMEN: Soft, nontender, liver spleen not palpable, no masses palpable. PSYCH: Alert and oriented x3; mood and affect normal. INVESTIGATIONS, reviewed in the clinical context: White count 5.8 hemoglobin 11.7 platelets 190 potassium 5 creatinine 1.45 bicarbonate 21 Admission testing White count 7.5 hemoglobin 12.9 platelets 195 potassium 3.8 bun 77 creatinine 3.16 Troponin I 0.05 to UA negative EKG tracing personally reviewed by me-ventricular paced rhythm. Chest x-ray film personally reviewed by me-chronic changes Previous testing: BUN 32, creatinine 1.33 on March 2019 Assessment: -Acute kidney injury likely prerenal possibly ATN , POA-improving -AICD -Hypotension from volume loss-improving -troponin leak, from acute kidney injury -chronic congestive heart failure from systolic dysfunction EF 20-25%, -Moderate mitral regurgitation nonrheumatic -Coronary artery disease prior history of coronary artery bypass -Essential hypertension -Hyperlipidemia -Ascending thoracic aortic aneurysm 4.3 cm -Metabolic acidosis from renal failure-improving Plan: Upon admission [facility] Aldactone and interested was discontinued. Currently on 60 mL of saline. Follow labs.
[2020-01-30] MEDS: ATORVASTATIN 80 MG TAB PO SCH (21:13)
[2020-01-31] MEDS: SODIUM CHLORIDE 0.9% 1,000 ML IV SCH (06:34)
[2020-01-31] MEDS: PANTOPRAZOLE 40 MG TABLET PO SCH (06:34)
[2020-01-31] MEDS: SERTRALINE 50 MG TAB PO SCH (08:48)
[2020-01-31] MEDS: allopurinoL 100 MG TAB PO SCH (08:48)
[2020-01-31] MEDS: CYANOCOBALAMIN 500 MCG TAB PO SCH (08:48)
[2020-01-31] MEDS: SODIUM BICARBONATE TAB 650 MG TAB PO SCH ×3 (08:48→20:34)
[2020-01-31] MEDS: APIXABAN 5 MG TAB PO SCH ×2 (08:48→20:34)
[2020-01-31] MEDS: ASPIRIN 81 MG PO SCH (08:48)
[2020-01-31] MEDS: ASCORBIC ACID 500 MG TAB PO SCH (08:48)
[2020-01-31 10:01] LABS: Calcium 8.8 mg/dL (8.4-10.2); Magnesium 2.2 mg/dL (1.6-2.3); Potassium 4.6 mmol/L (3.5-5.1)
[2020-01-31] MEDS: METOPROLOL SUCCINATE (ER) 25 MG TAB.ER.24H PO SCH (10:46)
--- NOTE | 2020-01-31 11:00 | P.PN ---
Subjective Progress Note Date: 01/31/20 This is a 79-year-old gentleman with past medical history significant for coronary artery disease and prior bypass surgery, ischemic cardio myopathy with prior AICD, chronic systolic congestive heart failure, hypertension, hyperlipidemia, paroxysmal atrial fibrillation maintained on Eliquis. He follows in the office with Dr. Villalobos. Cardiology was asked to see the patient because of congestive cardiac failure, he appears to be euvolemic at this time. Patient was advised to come to the hospital on this admission because of abnormal renal function. Blood pressure 110/60 with a heart rate in the 90s, 94% on room air. White blood cell count 5.8, hemoglobin 11.7, platelet count 190. 01/31/2020 Patient was seen and examined this morning, he feels well, no complaints. Kidney function continues to improve. Blood pressure this morning 107/60 with a heart rate in the 60s, 94% on room air. Sodium 140, potassium 4.6, BUN 26, creatinine 1.2. Objective - Vital Signs Vital signs: Vital Signs Temp 97.4 F L 01/31/20 08:00 Pulse 63 01/31/20 08:00 Resp 20 01/31/20 08:00 BP 89/57 01/31/20 08:00 Pulse Ox 98 01/31/20 08:00 Intake & Output 01/30/20 01/31/20 01/31/20 18:59 06:59 18:59 Intake Total 420 360 120 Output Total 1400 Balance 420 -1040 120 Weight 71 kg Intake: Oral 420 360 120 Output: Urine 1400 Other: Voiding Method Toilet Toilet # Voids 2 1 # Bowel Movements 0 - Exam PHYSICAL EXAMINATION Blood pressure 110/60 heart rate 89 afebrile and maintaining oxygen saturation on room air. CONSTITUTIONAL: No apparent distress. HEENT: Head is normocephalic. Pupils are equal, round. Sclerae anicteric. Mucous membranes of the mouth are moist. No JVD. No carotid bruit. CHEST EXAMINATION: Lungs are clear to auscultation. No chest wall tenderness is noted on palpation or with deep breathing. HEART EXAMINATION: Regular rate and rhythm. S1, S2 heard. No murmurs, gallops or rub. ABDOMEN: Soft, nontender. Positive bowel sounds. EXTREMITIES: 2+ peripheral pulses, no lower extremity edema and no calf tenderness. NEUROLOGIC EXAMINATION: Patient is awake, alert and oriented x3. - Labs CBC & Chem 7: 01/30/20 09:10 01/31/20 09:18 Labs: Abnormal Lab Results - Last 24 Hours (Table) 01/30/20 01/30/20 01/31/20 Range/Units 09:10 09:10 09:18 RBC 3.87 L (4.30-5.90) m/uL Hgb 11.7 L (13.0-17.5) gm/dL Hct 35.4 L (39.0-53.0) % RDW 16.3 H (11.5-15.5) % Chloride 116 H 111 H (98-107) mmol/L Carbon Dioxide 21 L (22-30) mmol/L BUN 41 H 26 H (9-20) mg/dL Creatinine 1.45 H 1.27 H (0.66-1.25) mg/dL Assessment and Plan Plan: Assessment and plan #1 acute kidney injury #2 poor oral intake #3 ischemic cardio myopathy with prior AICD #4 coronary artery disease status post bypass surgery 3 chronic systolic congestive heart failure, currently euvolemic #6 hypertension #7 hyperlipidemia Plan We will continue to monitor the patient's blood pressure and renal function. We will need to resume some of the patient's home medications as he continues to improve. DNP note has been reviewed, I agree with a documented findings and plan of care. Patient was seen and examined.
--- NOTE | 2020-01-31 11:02 | P.PN ---
Subjective Patient is seen in follow-up for acute kidney injury. Renal function is improving. Creatinine 1.27 today. Oral intake is slowly improving as well. No vomiting or diarrhea. No changes overnight. No active complaints. Vital signs are stable. General: The patient appeared well nourished and normally developed. HEENT: Head exam is unremarkable. Neck is without jugular venous distension. LUNGS: Breath sounds decreased. HEART: Rate and Rhythm are regular. ABDOMEN: Soft, nontender. EXTREMITITES: No edema. Objective - Vital Signs Vital signs: Vital Signs Temp 97.4 F L 01/31/20 08:00 Pulse 63 01/31/20 08:00 Resp 20 01/31/20 08:00 BP 89/57 01/31/20 08:00 Pulse Ox 98 01/31/20 08:00 Intake & Output 01/30/20 01/31/20 01/31/20 18:59 06:59 18:59 Intake Total 420 360 120 Output Total 1400 Balance 420 -1040 120 Weight 71 kg Intake: Oral 420 360 120 Output: Urine 1400 Other: Voiding Method Toilet Toilet # Voids 2 1 # Bowel Movements 0 - Labs CBC & Chem 7: 01/30/20 09:10 01/31/20 09:18 Labs: Abnormal Lab Results - Last 24 Hours (Table) 01/30/20 01/30/20 01/31/20 Range/Units 09:10 09:10 09:18 RBC 3.87 L (4.30-5.90) m/uL Hgb 11.7 L (13.0-17.5) gm/dL Hct 35.4 L (39.0-53.0) % RDW 16.3 H (11.5-15.5) % Chloride 116 H 111 H (98-107) mmol/L Carbon Dioxide 21 L (22-30) mmol/L BUN 41 H 26 H (9-20) mg/dL Creatinine 1.45 H 1.27 H (0.66-1.25) mg/dL Assessment and Plan Plan: Assessment: 1. Acute kidney injury mostly prerenal secondary to hypotension and diuretics. Creatinine was 3.16 on admission and is 1.27 today. UA benign. No hydronephrosis noted on kidney ultrasound. 2. Chronic kidney disease stage III with baseline creatinine in the range of 1- 1.3 secondary to nephrosclerosis. 3. Metabolic acidosis secondary to acute kidney injury and IV fluids. Maintain on oral bicarb. Better. 4. Hypokalemia secondary to diuretics and hypomagnesemia. Status post replacement. Resolved. 5. Hypomagnesemia from poor intake and diuretics. Resolved posterior placement. Plan: Continue to hold diuretics. Hep-Lock IV fluids. AM cortisol level normal.
[2020-01-31] MEDS: SPIRONOLACTONE 25 MG TAB PO SCH (14:47)
[2020-01-31] MEDS: FUROSEMIDE 20 MG TAB PO SCH (14:47)
[2020-01-31] MEDS: ATORVASTATIN 80 MG TAB PO SCH (20:34)
[2020-01-31] MEDS ORDERED: MELATONIN 3 MG TABLET PO SCH (21:00)
--- NOTE | 2020-01-31 22:00 | P.PN ---
Progress Note - Text Progress Note Date: 01/31/20 Chief Complaint: Tired History of presenting complaint 79-year-old patient of Dr. Daly, chronic stable medical conditions include moderate mitral regurgitation, coronary artery disease bypass, essential hypertension, hyperlipidemia, ascending thoracic aortic aneurysm 4.3 cm, EF of 20/25 percent. AICD: Patient was sent to the ER and patient's physician found a creatinine to have gone up. Patient had a been a bit tired. No chest pain. No shortness of breath. Recently his appetite has gone down. Has been feeling weak for about one or 2 weeks. Urine output has been low. No fever no chills. No recent change in medications. Admitted with an acute kidney injury prerenal, from medications, hypotension from volume loss. Diuretics etc. were discontinued. Gently hydrated. Today-blood pressure as picking up. Oral intake is good. Kidney function improving. Review of systems: Was done for constitutional, cardiovascular, GI, pulmonary. relevant finding as above Active Medications Acetaminophen (Acetaminophen Tab 325 Mg Tab) 650 mg PO Q6HR PRN PRN Reason: Mild Pain or Fever > 100.5 Allopurinol (Allopurinol 100 Mg Tab) 100 mg PO DAILY [facility] Last Admin: 01/31/20 08:48 Dose: 100 mg Documented by: Apixaban (Apixaban 5 Mg Tab) 5 mg PO BID [facility] Last Admin: 01/31/20 20:34 Dose: 5 mg Documented by: Ascorbic Acid (Ascorbic Acid 500 Mg Tab) 500 mg PO DAILY [facility] Last Admin: 01/31/20 08:48 Dose: 500 mg Documented by: Aspirin (Aspirin 81 Mg) 81 mg PO DAILY [facility] Last Admin: 01/31/20 08:48 Dose: 81 mg Documented by: Atorvastatin Calcium (Atorvastatin 80 Mg Tab) 80 mg PO [facility] Last Admin: 01/31/20 20:34 Dose: 80 mg Documented by: Cyanocobalamin (Cyanocobalamin 500 Mcg Tab) 1,000 mcg PO DAILY [facility] Last Admin: 01/31/20 08:48 Dose: 1,000 mcg Documented by: Furosemide (Furosemide 20 Mg Tab) 20 mg PO Q24H [facility] Last Admin: 01/31/20 14:47 Dose: 20 mg Documented by: Melatonin (Melatonin 3 Mg Tablet) 3 mg PO [facility] Last Admin: 01/31/20 20:34 Dose: 3 mg Documented by: Metoprolol Succinate (Metoprolol Succinate (Er) 25 Mg Tab.Er.24h) 25 mg PO DAILY [facility] Last Admin: 01/31/20 10:46 Dose: 25 mg Documented by: Miscellaneous Information (Magnesium Replacement Protocol 1 Each Misc) 1 each MISCELLANE DAILY PRN; Protocol PRN Reason: Per Protocol Naloxone HCl (Naloxone 0.4 Mg/Ml 1 Ml Vial) 0.2 mg IV Q2M PRN PRN Reason: Opioid Reversal Pantoprazole Sodium (Pantoprazole 40 Mg Tablet) 40 mg PO DAILY@0730 [facility] Last Admin: 01/31/20 06:34 Dose: 40 mg Documented by: Sertraline HCl (Sertraline 50 Mg Tab) 50 mg PO DAILY [facility] Last Admin: 01/31/20 08:48 Dose: 50 mg Documented by: Sodium Bicarbonate (Sodium Bicarbonate Tab 650 Mg Tab) 650 mg PO TID [facility] Last Admin: 01/31/20 20:34 Dose: 650 mg Documented by: Spironolactone (Spironolactone 25 Mg Tab) 12.5 mg PO DAILY [facility] Last Admin: 01/31/20 14:47 Dose: 12.5 mg Documented by: Physical examination: VITAL SIGNS: 97.2, 76, 20, 127/88, 99% room air GENERAL: Sitting up, comfortable EYES: Pupils equal. Conjunctiva normal. HEENT: External appearance of nose and ears normal, oral cavity grossly normal decreased hearing. NECK: JVD not raised; masses not palpable. HEART: First and second heart sounds are normal; no edema. LUNGS: Respiratory rate normal; decreased breath sounds. ABDOMEN: Soft, nontender, liver spleen not palpable, no masses palpable. PSYCH: Alert and oriented x3; mood and affect normal. INVESTIGATIONS, reviewed in the clinical context: January 30: Potassium 4.6 bun 26 creatinine 1.27 bicarbonate 23 White count 5.8 hemoglobin 11.7 platelets 190 potassium 5 creatinine 1.45 bicarbonate 21 Admission testing White count 7.5 hemoglobin 12.9 platelets 195 potassium 3.8 bun 77 creatinine 3.16 Troponin I 0.05 to UA negative EKG tracing personally reviewed by me-ventricular paced rhythm. Chest x-ray film personally reviewed by me-chronic changes Previous testing: BUN 32, creatinine 1.33 on March 2019 Assessment: -Acute kidney injury likely prerenal possibly ATN , POA-improving -AICD -Hypotension from volume loss-improving -troponin leak, from acute kidney injury -chronic congestive heart failure from systolic dysfunction EF 20-25%, -Moderate mitral regurgitation nonrheumatic -Coronary artery disease prior history of coronary artery bypass -Essential hypertension -Hyperlipidemia -Ascending thoracic aortic aneurysm 4.3 cm -Metabolic acidosis from renal failure-corrected Plan: We'll start the patient on Aldactone 12.5 mg today. Also@20 mg of Lasix starting tomorrow morning. See how the blood pressure and electrolytes handled the same. Discussed with the patient.
[2020-02-01] MEDS: PANTOPRAZOLE 40 MG TABLET PO SCH (06:20)
[2020-02-01 09:09] LABS: Calcium 8.2 mg/dL (8.4-10.2); Potassium 3.9 mmol/L (3.5-5.1)
[2020-02-01] MEDS: CYANOCOBALAMIN 500 MCG TAB PO SCH (09:38)
[2020-02-01] MEDS: ASPIRIN 81 MG PO SCH (09:38)
[2020-02-01] MEDS: allopurinoL 100 MG TAB PO SCH (09:38)
[2020-02-01] MEDS: ASCORBIC ACID 500 MG TAB PO SCH (09:38)
[2020-02-01] MEDS: APIXABAN 5 MG TAB PO SCH (09:38)
[2020-02-01] MEDS: SERTRALINE 50 MG TAB PO SCH (09:39)
[2020-02-01] MEDS: SPIRONOLACTONE 25 MG TAB PO SCH (09:39)
[2020-02-01] MEDS: METOPROLOL SUCCINATE (ER) 25 MG TAB.ER.24H PO SCH (09:39)
[2020-02-01] MEDS: SODIUM BICARBONATE TAB 650 MG TAB PO SCH ×2 (09:39→15:40)
--- NOTE | 2020-02-01 11:03 | P.PN ---
Subjective Patient is seen in follow-up for acute kidney injury. Renal function is improving. Creatinine 1.14 today. Oral intake is slowly improving as well. No vomiting or diarrhea. Low dose oral Lasix and spironolactone were resumed. Vital signs are stable. General: The patient appeared well nourished and normally developed. HEENT: Head exam is unremarkable. Neck is without jugular venous distension. LUNGS: Breath sounds decreased. HEART: Rate and Rhythm are regular. ABDOMEN: Soft, nontender. EXTREMITITES: No edema. Objective - Vital Signs Vital signs: Vital Signs Temp 98.0 F 02/01/20 08:00 Pulse 71 02/01/20 08:00 Resp 18 02/01/20 08:00 BP 98/53 02/01/20 08:00 Pulse Ox 97 02/01/20 08:00 Intake & Output 01/31/20 02/01/20 02/01/20 18:59 06:59 18:59 Intake Total 360 450 Balance 360 450 Weight 71.1 kg Intake: IV 240 Sodium Chloride 0.9% 1, 240 000 ml @ 60 mls/hr IV . [id number] [facility] Rx#:[id number] Oral 120 450 Other: Voiding Method Toilet Toilet Toilet # Voids 1 3 - Labs CBC & Chem 7: 01/30/20 09:10 02/01/20 08:21 Labs: Abnormal Lab Results - Last 24 Hours (Table) 02/01/20 Range/Units 08:21 Chloride 110 H (98-107) mmol/L Calcium 8.2 L (8.4-10.2) mg/dL Assessment and Plan Plan: Assessment: 1. Acute kidney injury mostly prerenal secondary to hypotension and diuretics. Creatinine was 3.16 on admission and is 1.14 today. UA benign. No hydronephrosis noted on kidney ultrasound. 2. Chronic kidney disease stage III with baseline creatinine in the range of 1- 1.3 secondary to nephrosclerosis. 3. Metabolic acidosis secondary to acute kidney injury and IV fluids. Better. 4. Hypokalemia secondary to diuretics and hypomagnesemia. Status post replacement. Resolved. 5. Hypomagnesemia from poor intake and diuretics. Resolved posterior placement. 6. Chronic systolic CHF with ejection fraction of 20-25% with moderate mitral regurgitation. Plan: Stable for discharge from nephrology standpoint. Follow up outpatient in 1-2 weeks
--- NOTE | 2020-02-01 12:27 | P.PN ---
Subjective Progress Note Date: 02/01/20 This is a pleasant 79-year-old gentleman who follows with Dr. Mena in the office. He has a past medical history significant for CAD with prior bypass surgery, ischemic cardiomyopathy with prior AICD, chronic systolic congestive heart failure, hypertension, hyperlipidemia, paroxysmal atrial fibrillation who is maintained on Eliquis. We were asked to the patient in consultation because of congestive cardiac failure. The patient appears to be euvolemic at this time. She was advised to come to the hospital on this admission due to abnormal renal function. Blood pressure remains low at 98/53 this morning renal function has improved and is stable this morning with a BUN of 20 and creatinine of 1.14. He's been reinitiated on metoprolol and low dose Aldactone. Objective - Vital Signs Vital signs: Vital Signs Temp 98.1 F 02/01/20 11:22 Pulse 67 02/01/20 11:22 Resp 17 02/01/20 11:22 BP 100/58 02/01/20 11:22 Pulse Ox 96 02/01/20 11:22 Intake & Output 01/31/20 02/01/20 02/01/20 18:59 06:59 18:59 Intake Total 360 450 Balance 360 450 Weight 71.1 kg Intake: IV 240 Sodium Chloride 0.9% 1, 240 000 ml @ 60 mls/hr IV . [id number] [facility] Rx#:[id number] Oral 120 450 Other: Voiding Method Toilet Toilet Toilet # Voids 1 3 - Exam PHYSICAL EXAMINATION: HEENT: Head is atraumatic, normocephalic. Pupils equal, round. Neck is supple. There is no elevated jugular venous pressure. HEART EXAMINATION: Heart sounds regular, S1 and S2 normal. No murmur or gallop heard. CHEST EXAMINATION: Lungs are clear to auscultation. No chest wall tenderness is noted on palpation or with deep breathing. ABDOMEN: Soft, nontender. Bowel sounds are heard. No organomegaly noted. EXTREMITIES: 2+ peripheral pulses with evidence of trace peripheral edema and no calf tenderness noted. NEUROLOGIC patient is awake, alert and oriented x3. - Labs CBC & Chem 7: 01/30/20 09:10 02/01/20 08:21 Labs: Abnormal Lab Results - Last 24 Hours (Table) 02/01/20 Range/Units 08:21 Chloride 110 H (98-107) mmol/L Calcium 8.2 L (8.4-10.2) mg/dL Assessment and Plan Assessment: #1 acute kidney injury #2 poor oral intake #3 ischemic cardio myopathy with prior AICD #4 coronary artery disease status post bypass surgery 5 chronic systolic congestive heart failure, currently euvolemic #6 hypertension #7 hyperlipidemia Plan: From core maker helper perspective, occasions reviewed and we'll continue the same. We anticipate the patient be discharged home. We will evaluate the patient at follow-up visit for potentially resuming Entresto versus an Aaron-I or an ARB. We'll follow-up in the office as an outpatient with Dr. Villalobos. The above dictated assessment and findings were discussed with signing physician. The impression and plan of care have been directed as dictated. Brenda Pryor, Nurse Practitioner, acting as scribe for signing physician.
[2020-02-01] MEDS: FUROSEMIDE 20 MG TAB PO SCH (15:40)
[2020-02-01 15:56] VITALS: BP 121/72; PULSE 93; RESP 18; TEMP 98.4
--- NOTE | 2020-02-02 21:48 | P.DS ---
Providers Date of admission: 01/28/20 17:13 Expected date of discharge: 02/01/20 Attending physician: Andrea Birmingham Consults: 01/28/20 17:15 Consult Physician Urgent Consulting Provider: Joel Michael Consult Reason/Comments: XUAN, weakness Do you want consulting provider notified?: Yes 01/28/20 21:42 Consult Physician Routine Consulting Provider: Shlomo Bright Consult Reason/Comments: chf Do you want consulting provider notified?: Yes Primary care physician: Juan Pablo Daly [facility] Course: Chief Complaint: Tired History of presenting complaint 79-year-old patient of Dr. Daly, chronic stable medical conditions include moderate mitral regurgitation, coronary artery disease bypass, essential hypertension, hyperlipidemia, ascending thoracic aortic aneurysm 4.3 cm, EF of 20/25 percent. AICD: Patient was sent to the ER and patient's physician found a creatinine to have gone up. Patient had a been a bit tired. No chest pain. No shortness of breath. Recently his appetite has gone down. Has been feeling weak for about one or 2 weeks. Urine output has been low. No fever no chills. No recent change in medications. Admitted with an acute kidney injury prerenal, from medications, hypotension from volume loss. Diuretics etc. were discontinued. Gently hydrated. Entresto, was discontinued. Aldactone and Lasix was resumed on a smaller dose. Creatinine dropped from 3.16 down to 1.14. BUN dropped from 76 down to 20. Today-doing better. Asymptomatic. Consultation: [facility] Dr. Emily Michael from nephrology Physical examination: VITAL SIGNS: 98.1, 67, 17, 121/72, 96% room air GENERAL: Sitting up, comfortable EYES: Pupils equal. Conjunctiva normal. HEENT: External appearance of nose and ears normal, oral cavity grossly normal decreased hearing. NECK: JVD not raised; masses not palpable. HEART: First and second heart sounds are normal; no edema. LUNGS: Respiratory rate normal; decreased breath sounds. ABDOMEN: Soft, nontender, liver spleen not palpable, no masses palpable. PSYCH: Alert and oriented x3; mood and affect normal. INVESTIGATIONS, reviewed in the clinical context: January 31: Potassium 3.9 creatinine 1.14 January 30: Potassium 4.6 bun 26 creatinine 1.27 bicarbonate 23 White count 5.8 hemoglobin 11.7 platelets 190 potassium 5 creatinine 1.45 bicarbonate 21 Admission testing White count 7.5 hemoglobin 12.9 platelets 195 potassium 3.8 bun 77 creatinine 3.16 Troponin I 0.05 to UA negative EKG tracing personally reviewed by me-ventricular paced rhythm. Chest x-ray film personally reviewed by me-chronic changes Previous testing: BUN 32, creatinine 1.33 on March 2019 Assessment: -Acute kidney injury likely prerenal possibly ATN , POA-improving -AICD -Hypotension from volume loss-improving -troponin leak, from acute kidney injury -chronic congestive heart failure from systolic dysfunction EF 20-25%, -Moderate mitral regurgitation nonrheumatic -Coronary artery disease prior history of coronary artery bypass -Essential hypertension -Hyperlipidemia -Ascending thoracic aortic aneurysm 4.3 cm -Metabolic acidosis from renal failure-corrected Disposition: Home Patient Condition at Discharge: Stable Plan - Discharge Summary Discharge Rx Participant: Yes New Discharge Prescriptions: Continue [place]-3 Fatty Acids/Fish Oil [Fish Oil 1,000 mg Softgel] 1 cap PO BID Aspirin EC [Ecotrin Low Dose] 81 mg PO DAILY Ascorbic Acid [Vitamin C] 500 mg PO DAILY Omeprazole 20 mg PO DAILY Acetaminophen Tab [Tylenol] 500 mg PO QID Apixaban [Eliquis] 5 mg PO BID #60 tab Metoprolol Succinate (ER) [Toprol XL] 25 mg PO DAILY #30 tab.er.24h Sertraline [Zoloft] 50 mg PO DAILY Cholecalciferol (Vitamin D3) [Vitamin D3] 125 mcg PO DAILY Spironolactone [Aldactone] 25 mg PO DAILY Atorvastatin [Lipitor] 80 mg PO HS Allopurinol [Zyloprim] 100 mg PO DAILY Cyanocobalamin (Vitamin B-12) [Vitamin B-12] 1,000 mcg PO DAILY Changed Furosemide [Lasix] 40 mg PO DAILY@1400 #0 Discontinued Potassium Chloride ER [K-Dur 10] 10 meq PO DAILY Sacubitril/Valsartan [Entresto 24 mg-26 mg Tablet] 1 tab PO BID Discharge Medication List Acetaminophen Tab [Tylenol] 500 mg PO QID 02/03/19 [History] Ascorbic Acid [Vitamin C] 500 mg PO DAILY 02/03/19 [History] Aspirin EC [Ecotrin Low Dose] 81 mg PO DAILY 02/03/19 [History] [place]-3 Fatty Acids/Fish Oil [Fish Oil 1,000 mg Softgel] 1 cap PO BID 02/03/19 [History] Omeprazole 20 mg PO DAILY 02/03/19 [History] Apixaban [Eliquis] 5 mg PO BID #60 tab 02/07/19 [Rx] Metoprolol Succinate (ER) [Toprol XL] 25 mg PO DAILY #30 tab.er.24h 04/10/19 [Rx ] Allopurinol [Zyloprim] 100 mg PO DAILY 01/28/20 [History] Atorvastatin [Lipitor] 80 mg PO HS 01/28/20 [History] Cholecalciferol (Vitamin D3) [Vitamin D3] 125 mcg PO DAILY 01/28/20 [History] Cyanocobalamin (Vitamin B-12) [Vitamin B-12] 1,000 mcg PO DAILY 01/28/20 [History] Sertraline [Zoloft] 50 mg PO DAILY 01/28/20 [History] Spironolactone [Aldactone] 25 mg PO DAILY 01/28/20 [History] Furosemide [Lasix] 40 mg PO DAILY@1400 #0 02/01/20 [Rx] Follow up Appointment(s)/Referral(s): Juan Pablo Daly MD [Primary Care Provider] - 1-2 days Joel Michael DO [STAFF PHYSICIAN] - 2 Weeks Oliver Villalobos MD [Family Provider] - 1 Week Patient Instructions/Handouts: Acute Kidney Injury (DC), Weakness (DC) Activity/Diet/Wound Care/Special Instructions: heart healthy diet activity as tolerated Discharge Disposition: HOME SELF-CARE
== END 2020-02-01 16:10 | disposition home or self-care (01) | DRG 683 ==
LOC: EC 14:06 → 3SCARD 17:13
PROVIDERS: ADMIT Hospitalist; ATTEND Hospitalist
DX: N17.0 Acute kidney failure with tubular necrosis (principal); I50.22 Chronic systolic (congestive) heart failure; E87.2 Acidosis; I13.0 Hypertensive heart and chronic kidney disease with heart failure and stage 1 through stage 4 chronic kidney disease, or unspecified chronic kidney disease; I71.2 Thoracic aortic aneurysm, without rupture; I48.0 Paroxysmal atrial fibrillation; I95.9 Hypotension, unspecified; N18.30 Chronic kidney disease, stage 3 unspecified; I34.0 Nonrheumatic mitral (valve) insufficiency; I25.5 Ischemic cardiomyopathy; E87.6 Hypokalemia; E83.42 Hypomagnesemia; T50.2X5A Adverse effect of carbonic-anhydrase inhibitors, benzothiadiazides and other diuretics, initial encounter; R77.8 Other specified abnormalities of plasma proteins; E78.5 Hyperlipidemia, unspecified; Z79.82 Long term (current) use of aspirin; Z79.01 Long term (current) use of anticoagulants; Z79.899 Other long term (current) drug therapy; Z95.810 Presence of automatic (implantable) cardiac defibrillator; I25.10 Atherosclerotic heart disease of native coronary artery without angina pectoris; Z95.1 Presence of aortocoronary bypass graft; Z82.49 Family history of ischemic heart disease and other diseases of the circulatory system
CPT/HCPCS: 36415; 71046; 76770; 80048; 80053; 81003; 82533; 83735; 83880; 84484; 85025; 85027; 85610; 85730; 93005; 96361; 96365; 96366; 99285

== ENCOUNTER 2020-02-05 09:37 | Observation (INO) | payer MEDICARE, BC ==
[2020-02-05] MEDS ORDERED: SODIUM CHLORIDE 0.9% 1,000 ML IV STA (10:26)
[2020-02-05 10:44] LABS: Anisocytosis Slight; Appearance,Urine Clear (Clear); Basophils % (A) 0 %; Bilirubin,Urine Negative (Negative); Blood,Urine Negative (Negative); Color,Urine Light Yellow; Eosinophils # (A) 0.2 k/uL (0-0.7); Eosinophils % (A) 2 %; Glucose,Urine (UA) Negative (Negative); HCT 32.6 % (39.0-53.0); HGB 11.2 gm/dL (13.0-17.5); Ketones,Urine Negative (Negative); Leukocyte Esterase,Urine Negative (Negative); Lymphocytes # (A) 0.7 k/uL (1.0-4.8); Lymphocytes % (A) 8 %; MCH 31.5 pg (25.0-35.0); MCHC 34.2 g/dL (31.0-37.0); MCV 92.2 fL (80.0-100.0); Mean Platelet Volume 7.8; Monocytes # (A) 0.4 k/uL (0-1.0); Monocytes % (A) 5 %; Neutrophils # (A) 7.2 k/uL (1.3-7.7); Neutrophils % (A) 84 %; Nitrite,Urine Negative (Negative); PH, Urine 5.5 (5.0-8.0); Platelet Count 177 k/uL (150-450); Protein,Urine Negative (Negative); RBC 3.54 m/uL (4.30-5.90); RDW 16.3 % (11.5-15.5); Specific Gravity,Urine 1.008 (1.001-1.035); Urobilinogen,Urine <2.0 mg/dL (<2.0); WBC 8.6 k/uL (3.8-10.6)
--- NOTE | 2020-02-05 10:44 | ED ---
General Adult HPI - General Source: patient, RN notes reviewed Mode of arrival: wheelchair Limitations: physical limitation <Huey Torres - Last Filed: 02/05/20 12:50> <Kim Treviño - Last Filed: 02/10/20 19:12> - General Chief complaint: Shortness of Breath Stated complaint: weakness Time Seen by Provider: 02/05/20 10:00 - History of Present Illness Initial comments: 39-year-old male presents emergency Department with chief complaint of not feeling well. Patient states that he feels weak, short breath slight cough and aches. Patient states she was just discharged from the hospital for acute weakness, acute kidney injury renal failure. Patient states that he feels similar to that. Patient states she's not been eating well. Patient denies any chest pain no significant headache feels slightly dizzy. Patient denies any focal weakness, blurred vision, dysuria, hematuriaand diarrhea constipation. (Huey Torres) - Related Data Home Medications Medication Instructions Recorded Confirmed Acetaminophen Tab [Tylenol] 500 mg PO QID 02/03/19 02/05/20 Ascorbic Acid [Vitamin C] 500 mg PO DAILY 02/03/19 02/05/20 Aspirin EC [Ecotrin Low Dose] 81 mg PO DAILY 02/03/19 02/05/20 [place]-3 Fatty Acids/Fish Oil [Fish 1 cap PO BID 02/03/19 02/05/20 Oil 1,000 mg Softgel] Omeprazole 20 mg PO DAILY 02/03/19 02/05/20 Allopurinol [Zyloprim] 100 mg PO DAILY 01/28/20 02/05/20 Atorvastatin [Lipitor] 80 mg PO HS 01/28/20 02/05/20 Cholecalciferol (Vitamin D3) 125 mcg PO DAILY 01/28/20 02/05/20 [Vitamin D3] Cyanocobalamin (Vitamin B-12) 1,000 mcg PO DAILY 01/28/20 02/05/20 [Vitamin B-12] Sertraline [Zoloft] 50 mg PO DAILY 01/28/20 02/05/20 Spironolactone [Aldactone] 25 mg PO DAILY 01/28/20 02/05/20 Previous Rx's Medication Instructions Recorded Apixaban [Eliquis] 5 mg PO BID #60 tab 12/12/19 Metoprolol Succinate (ER) [Toprol 25 mg PO DAILY #30 tab.er.24h 04/10/19 XL] Furosemide [Lasix] 40 mg PO DAILY@1400 #0 02/01/20 Furosemide [Lasix] 20 mg PO DAILY tab 02/07/20 Allergies Allergy/AdvReac Type Severity Reaction Status Date / Time No Known Allergies Allergy Verified 02/05/20 11:47 Review of Systems ROS Other: All systems not noted in ROS Statement are negative. <Huey Torres - Last Filed: 02/05/20 12:50> ROS Other: All systems not noted in ROS Statement are negative. <Kim Treviño - Last Filed: 02/10/20 19:12> ROS Statement: Those systems with pertinent positive or pertinent negative responses have been documented in the HPI. Past Medical History Past Medical History: Coronary Artery Disease (CAD), Heart Failure, Renal Disease History of Any Multi-Drug Resistant Organisms: None Reported Past Surgical History: Coronary Bypass/CABG Additional Past Surgical History / Comment(s): TIMUR in 1995 Past Anesthesia/Blood Transfusion Reactions: No Reported Reaction Past Psychological History: No Psychological Hx Reported Smoking Status: Never smoker Past Alcohol Use History: None Reported Past Drug Use History: None Reported - Past Family History Father Family Medical History: Coronary Artery Disease (CAD) Mother Family Medical History: Coronary Artery Disease (CAD) <Huey Torres - Last Filed: 02/05/20 12:50> General Exam Limitations: physical limitation General appearance: alert, in no apparent distress Head exam: Present: atraumatic, normocephalic, normal inspection Eye exam: Present: normal appearance, PERRL, EOMI. Absent: scleral icterus, conjunctival injection, periorbital swelling ENT exam: Present: normal exam, normal oropharynx, mucous membranes moist Neck exam: Present: normal inspection, full ROM. Absent: tenderness, meningismus, lymphadenopathy Respiratory exam: Present: normal lung sounds bilaterally. Absent: respiratory distress, wheezes, rales, rhonchi, stridor Cardiovascular Exam: Present: regular rate, normal rhythm, normal heart sounds. Absent: systolic murmur, diastolic murmur, rubs, gallop, clicks GI/Abdominal exam: Present: soft, normal bowel sounds. Absent: distended, tenderness, guarding, rebound, rigid <Huey Torres - Last Filed: 02/05/20 12:50> Course Vital Signs 02/05/20 02/05/20 02/05/20 09:54 10:12 13:37 Temperature 97.7 F Pulse Rate 63 65 Pulse Rate [ Left Supine] Respiratory 18 20 18 Rate Blood Pressure 122/62 110/67 O2 Sat by Pulse 97 98 Oximetry 02/05/20 02/05/20 14:00 14:17 Temperature Pulse Rate 89 Pulse Rate [ 68 Left Supine] Respiratory 18 18 Rate Blood Pressure 110/67 O2 Sat by Pulse Oximetry Medical Decision Making - Lab Data Result diagrams: 02/05/20 10:29 02/05/20 10:29 <Huey Torres - Last Filed: 02/05/20 12:50> - Lab Data Result diagrams: 02/05/20 10:29 02/07/20 11:35 <Kim Treviño - Last Filed: 02/10/20 19:12> - Medical Decision Making 39-year-old presented for shortness of breath, weakness. EKG shows possible pacemaker failure, troponin is elevated significant BMP elevation no acute changes on x-ray. Patient will be admitted for cardiology evaluation. ( Huey Torres) I was available for consultation in the emergency department. The history and physical exam were done by the midlevel provider. I was consulted for this patients care. I reviewed the case with the midlevel provider and based on their presentation of the patient, I agree with the assessment, medical decision making and plan of care as documented. Chart was dictated using [employer] dictation software. Attempts were made to correct any dictation errors however some typographical errors may persist. Patient was seen during a national state of emergency due to the Covid-19 pandemic. (Kim Treviño) - Lab Data Lab Results 02/05/20 02/05/20 02/05/20 Range/Units 10:29 10:29 10:29 WBC 8.6 (3.8-10.6) k/uL RBC 3.54 L (4.30-5.90) m/uL Hgb 11.2 L (13.0-17.5) gm/dL Hct 32.6 L (39.0-53.0) % MCV 92.2 (80.0-100.0) fL MCH 31.5 (25.0-35.0) pg MCHC 34.2 (31.0-37.0) g/dL RDW 16.3 H (11.5-15.5) % Plt Count 177 (150-450) k/uL MPV 7.8 Neutrophils % 84 % Lymphocytes % 8 % Monocytes % 5 % Eosinophils % 2 % Basophils % 0 % Neutrophils # 7.2 (1.3-7.7) k/uL Lymphocytes # 0.7 L (1.0-4.8) k/uL Monocytes # 0.4 (0-1.0) k/uL Eosinophils # 0.2 (0-0.7) k/uL Basophils # 0.0 (0-0.2) k/uL Anisocytosis Slight PT 11.3 (9.0-12.0) sec INR 1.1 (<1.2) APTT 29.8 (22.0-30.0) sec Sodium 143 (137-145) mmol/L Potassium 3.7 (3.5-5.1) mmol/L Chloride 106 (98-107) mmol/L Carbon Dioxide 27 (22-30) mmol/L Anion Gap 10 mmol/L BUN 22 H (9-20) mg/dL Creatinine 1.56 H (0.66-1.25) mg/dL Est GFR (CKD-EPI)AfAm 49 (>60 ml/min/1.73 sqM) Est GFR (CKD-EPI)NonAf 42 (>60 ml/min/1.73 sqM) Glucose 120 H (74-99) mg/dL Lactic Ac Sepsis Rflx Plasma Lactic Acid Perez (0.7-2.0) mmol/L Calcium 8.9 (8.4-10.2) mg/dL Magnesium 1.6 (1.6-2.3) mg/dL Total Bilirubin 0.9 (0.2-1.3) mg/dL AST 47 (17-59) U/L ALT 55 H (4-49) U/L Alkaline Phosphatase 66 (38-126) U/L Troponin I (0.000-0.034) ng/mL NT-Pro-B Natriuret Pep pg/mL Total Protein 6.4 (6.3-8.2) g/dL Albumin 4.0 (3.5-5.0) g/dL Urine Color Urine Appearance (Clear) Urine pH (5.0-8.0) Ur Specific [place] (1.001-1.035) Urine Protein (Negative) Urine Glucose (UA) (Negative) Urine Ketones (Negative) Urine Blood (Negative) Urine Nitrite (Negative) Urine Bilirubin (Negative) Urine Urobilinogen (<2.0) mg/dL Ur Leukocyte Esterase (Negative) Coronavirus (PCR) (Not Detectd) 02/05/20 02/05/20 02/05/20 Range/Units 10:29 10:29 10:29 WBC (3.8-10.6) k/uL RBC (4.30-5.90) m/uL Hgb (13.0-17.5) gm/dL Hct (39.0-53.0) % MCV (80.0-100.0) fL MCH (25.0-35.0) pg MCHC (31.0-37.0) g/dL RDW (11.5-15.5) % Plt Count (150-450) k/uL MPV Neutrophils % % Lymphocytes % % Monocytes % % Eosinophils % % Basophils % % Neutrophils # (1.3-7.7) k/uL Lymphocytes # (1.0-4.8) k/uL Monocytes # (0-1.0) k/uL Eosinophils # (0-0.7) k/uL Basophils # (0-0.2) k/uL Anisocytosis PT (9.0-12.0) sec INR (<1.2) APTT (22.0-30.0) sec Sodium (137-145) mmol/L Potassium (3.5-5.1) mmol/L Chloride (98-107) mmol/L Carbon Dioxide (22-30) mmol/L Anion Gap mmol/L BUN (9-20) mg/dL Creatinine (0.66-1.25) mg/dL Est GFR (CKD-EPI)AfAm (>60 ml/min/1.73 sqM) Est GFR (CKD-EPI)NonAf (>60 ml/min/1.73 sqM) Glucose (74-99) mg/dL Lactic Ac Sepsis Rflx Plasma Lactic Acid Perez 2.8 H* (0.7-2.0) mmol/L Calcium (8.4-10.2) mg/dL Magnesium (1.6-2.3) mg/dL Total Bilirubin (0.2-1.3) mg/dL AST (17-59) U/L ALT (4-49) U/L Alkaline Phosphatase (38-126) U/L Troponin I 0.435 H* (0.000-0.034) ng/mL NT-Pro-B Natriuret Pep 17794 pg/mL Total Protein (6.3-8.2) g/dL Albumin (3.5-5.0) g/dL Urine Color Urine Appearance (Clear) Urine pH (5.0-8.0) Ur Specific [place] (1.001-1.035) Urine Protein (Negative) Urine Glucose (UA) (Negative) Urine Ketones (Negative) Urine Blood (Negative) Urine Nitrite (Negative) Urine Bilirubin (Negative) Urine Urobilinogen (<2.0) mg/dL Ur Leukocyte Esterase (Negative) Coronavirus (PCR) (Not Detectd) 02/05/20 02/05/20 02/05/20 Range/Units 10:29 10:29 11:15 WBC (3.8-10.6) k/uL RBC (4.30-5.90) m/uL Hgb (13.0-17.5) gm/dL Hct (39.0-53.0) % MCV (80.0-100.0) fL MCH (25.0-35.0) pg MCHC (31.0-37.0) g/dL RDW (11.5-15.5) % Plt Count (150-450) k/uL MPV Neutrophils % % Lymphocytes % % Monocytes % % Eosinophils % % Basophils % % Neutrophils # (1.3-7.7) k/uL Lymphocytes # (1.0-4.8) k/uL Monocytes # (0-1.0) k/uL Eosinophils # (0-0.7) k/uL Basophils # (0-0.2) k/uL Anisocytosis PT (9.0-12.0) sec INR (<1.2) APTT (22.0-30.0) sec Sodium (137-145) mmol/L Potassium (3.5-5.1) mmol/L Chloride (98-107) mmol/L Carbon Dioxide (22-30) mmol/L Anion Gap mmol/L BUN (9-20) mg/dL Creatinine (0.66-1.25) mg/dL Est GFR (CKD-EPI)AfAm (>60 ml/min/1.73 sqM) Est GFR (CKD-EPI)NonAf (>60 ml/min/1.73 sqM) Glucose (74-99) mg/dL Lactic Ac Sepsis Rflx Y Plasma Lactic Acid Perez (0.7-2.0) mmol/L Calcium (8.4-10.2) mg/dL Magnesium (1.6-2.3) mg/dL Total Bilirubin (0.2-1.3) mg/dL AST (17-59) U/L ALT (4-49) U/L Alkaline Phosphatase (38-126) U/L Troponin I (0.000-0.034) ng/mL NT-Pro-B Natriuret Pep pg/mL Total Protein (6.3-8.2) g/dL Albumin (3.5-5.0) g/dL Urine Color Light Yellow Urine Appearance Clear (Clear) Urine pH 5.5 (5.0-8.0) Ur Specific [place] 1.008 (1.001-1.035) Urine Protein Negative (Negative) Urine Glucose (UA) Negative (Negative) Urine Ketones Negative (Negative) Urine Blood Negative (Negative) Urine Nitrite Negative (Negative) Urine Bilirubin Negative (Negative) Urine Urobilinogen <2.0 (<2.0) mg/dL Ur Leukocyte Esterase Negative (Negative) Coronavirus (PCR) Not Detected (Not Detectd) Disposition <Huey Torres - Last Filed: 02/05/20 12:50> <Kim Treviño - Last Filed: 02/10/20 19:12> Clinical Impression: Pacemaker failure, Weakness, Elevated troponin Disposition: ADMITTED IP TO THIS HOSP
[2020-02-05 10:57] LABS: INR 1.1 (<1.2); Partial Thromboplastin Time 29.8 sec (22.0-30.0); Prothrombin Time 11.3 sec (9.0-12.0)
--- NOTE | 2020-02-05 11:09 | XR ---
EXAMINATION TYPE: XR chest 2V DATE OF EXAM: 02/05/2020 COMPARISON: 01/28/2020 TECHNIQUE: PA and lateral views submitted. HISTORY: Difficulty breathing FINDINGS: The lungs are clear and there is no pneumothorax, pleural effusion, or focal pneumonia. Postoperati ve change and cardiac device seen. Atherosclerotic change aorta. Arthropathy of the shoulders. Heart size normal. No overt failure. Ectasia of the aorta. Hypertrophic and degenerative changes of the spi ne. IMPRESSION: 1. No acute process.
[2020-02-05 11:49] LABS: Calcium 8.9 mg/dL (8.4-10.2); Magnesium 1.6 mg/dL (1.6-2.3); Potassium 3.7 mmol/L (3.5-5.1); Total Bilirubin 0.9 mg/dL (0.2-1.3); Total Protein 6.4 g/dL (6.3-8.2)
[2020-02-05] MEDS ORDERED: NITROGLYCERIN SL TABS 0.4 MG TAB SUBLINGUAL PRN (12:51)
--- NOTE | 2020-02-05 21:46 | P.HPIM ---
History of Present Illness H&P Date: 02/05/20 Chief Complaint: Feeling unwell History of presenting complaint 79-year-old patient of Dr. Daly, chronic stable medical conditions include moderate mitral regurgitation, coronary artery disease bypass, essential hypertension, hyperlipidemia, ascending thoracic aortic aneurysm 4.3 cm, EF of 20/25 percent. AICD: Was discharged from the hospital on February 01..Admitted with an acute kidney injury prerenal, from medications, hypotension from volume loss. Diuretics etc. were discontinued. Gently hydrated. Entresto, was discontinued. Aldactone and Lasix was resumed on a smaller dose. Creatinine dropped from 3.16 down to 1.14. BUN dropped from 76 down to 20. Patient now presents feeling just out of sorts somewhat dizzy tired. No chest pain or palpitation. Has gone out shopping. Decided to come to the ER. EKG in the ER was suggestive of pacemaker failure. Creatinine was elevated. No fever no chills. No respiratory symptoms. Review of systems: GEN.: Tired EYES: None HEENT: Decreased hearing NECK: None RESPIRATORY: Baseline mild shortness breath CARDIOVASCULAR: As above GASTROINTESTINAL: None GENITOURINARY: None MUSCULOSKELETAL: Joint pains LYMPHATICS: None HEMATOLOGICAL: None PSYCHIATRY: None NEUROLOGICAL: None Past medical history to include: Moderate mitral regurgitation, coronary artery disease-bypass, essential hypertension, hyperlipidemia, ascending thoracic aortic aneurysm 4.3; CHF EF 20-45%, AICD Social history: No smoking, no alcohol. Physical examination: VITAL SIGNS: 97.7, 63, 18, 110/67, 98% room air GENERAL: Laying in bed, awake EYES: Pupils equal. Conjunctiva normal. HEENT: External appearance of nose and ears normal, oral cavity grossly normal decreased hearing. NECK: JVD not raised; masses not palpable. HEART: First and second heart sounds are normal; no edema. LUNGS: Respiratory rate normal; decreased breath sounds. ABDOMEN: Soft, nontender, liver spleen not palpable, no masses palpable. PSYCH: Alert and oriented x3; mood and affect normal. LYMPHATICS: No lymph nodes palpable in neck and axilla NEUROLOGICAL: Cranial nerves grossly intact. Pulses sensation grossly intact INVESTIGATIONS, reviewed in the clinical context: White count 8.6 hemoglobin 11.2 platelets 177 potassium 3.7 bun 22 creatinine 1.56 Previous testing: Bun 20 creatinine 1.14 on January 31 Assessment: -Acute kidney injury likely prerenal from diuretics. -AICD/pacemaker malfunction as per EKG in the ER -Hypotension from volume loss- -troponin leak, from acute kidney injury -chronic congestive heart failure from systolic dysfunction EF 20-25%, -Moderate mitral regurgitation nonrheumatic -Coronary artery disease prior history of coronary artery bypass -Essential hypertension -Hyperlipidemia -Ascending thoracic aortic aneurysm 4.3 cm Plan: We'll hold off Aldactone and Lasix for now. Start gentle hydration with normal saline [address] Virgilio Griggs was consulted. Care was discussed with the patient. Repeat labs in the morning. Past Medical History Past Medical History: Coronary Artery Disease (CAD), Heart Failure, Renal Disease History of Any Multi-Drug Resistant Organisms: None Reported Past Surgical History: Coronary Bypass/CABG Additional Past Surgical History / Comment(s): TIMUR in 1995 Past Anesthesia/Blood Transfusion Reactions: No Reported Reaction Past Psychological History: No Psychological Hx Reported Smoking Status: Never smoker Past Alcohol Use History: None Reported Past Drug Use History: None Reported - Past Family History Father Family Medical History: Coronary Artery Disease (CAD) Mother Family Medical History: Coronary Artery Disease (CAD) Medications and Allergies Home Medications Medication Instructions Recorded Confirmed Type Acetaminophen Tab [Tylenol] 500 mg PO QID 02/03/19 02/05/20 History Ascorbic Acid [Vitamin C] 500 mg PO DAILY 02/03/19 02/05/20 History Aspirin EC [Ecotrin Low Dose] 81 mg PO DAILY 02/03/19 02/05/20 History [place]-3 Fatty Acids/Fish Oil [Fish 1 cap PO BID 02/03/19 02/05/20 History Oil 1,000 mg Softgel] Omeprazole 20 mg PO DAILY 02/03/19 02/05/20 History Apixaban [Eliquis] 5 mg PO BID #60 tab 02/07/19 02/05/20 Rx Metoprolol Succinate (ER) [Toprol 25 mg PO DAILY #30 tab.er.24h 04/10/19 02/05/20 Rx XL] Allopurinol [Zyloprim] 100 mg PO DAILY 01/28/20 02/05/20 History Atorvastatin [Lipitor] 80 mg PO HS 01/28/20 02/05/20 History Cholecalciferol (Vitamin D3) 125 mcg PO DAILY 01/28/20 02/05/20 History [Vitamin D3] Cyanocobalamin (Vitamin B-12) 1,000 mcg PO DAILY 01/28/20 02/05/20 History [Vitamin B-12] Sertraline [Zoloft] 50 mg PO DAILY 01/28/20 02/05/20 History Spironolactone [Aldactone] 25 mg PO DAILY 01/28/20 02/05/20 History Furosemide [Lasix] 40 mg PO DAILY@1400 #0 02/01/20 02/05/20 Rx Allergies Allergy/AdvReac Type Severity Reaction Status Date / Time No Known Allergies Allergy Verified 02/05/20 11:47 Physical Exam Vitals: Vital Signs Temp Pulse Pulse Resp BP BP Pulse Ox 02/05/20 20:00 97.8 F 60 18 119/73 95 02/05/20 15:04 97.8 F 68 16 103/59 93 L 02/05/20 14:17 89 18 110/67 02/05/20 14:00 68 18 02/05/20 13:37 65 18 110/67 98 02/05/20 10:12 20 02/05/20 09:54 97.7 F 63 18 122/62 97 Intake and Output 02/05/20 02/05/20 02/05/20 06:59 14:59 22:59 Intake Total 240 Balance 240 Intake: Oral 240 Other: Voiding Method Toilet Weight 70.307 kg Results CBC & Chem 7: 02/05/20 10:29 02/05/20 10:29 Labs: Abnormal Lab Results - Last 24 Hours (Table) 02/05/20 02/05/20 02/05/20 Range/Units 10:29 10:29 10:29 RBC 3.54 L (4.30-5.90) m/uL Hgb 11.2 L (13.0-17.5) gm/dL Hct 32.6 L (39.0-53.0) % RDW 16.3 H (11.5-15.5) % Lymphocytes # 0.7 L (1.0-4.8) k/uL BUN 22 H (9-20) mg/dL Creatinine 1.56 H (0.66-1.25) mg/dL Glucose 120 H (74-99) mg/dL Plasma Lactic Acid Perez 2.8 H* (0.7-2.0) mmol/L ALT 55 H (4-49) U/L Troponin I (0.000-0.034) ng/mL 02/05/20 02/05/20 02/05/20 Range/Units 10:29 13:30 17:02 RBC (4.30-5.90) m/uL Hgb (13.0-17.5) gm/dL Hct (39.0-53.0) % RDW (11.5-15.5) % Lymphocytes # (1.0-4.8) k/uL BUN (9-20) mg/dL Creatinine (0.66-1.25) mg/dL Glucose (74-99) mg/dL Plasma Lactic Acid Perez (0.7-2.0) mmol/L ALT (4-49) U/L Troponin I 0.435 H* 0.316 H* 0.335 H* (0.000-0.034) ng/mL Thrombosis Risk Factor Assmnt - Choose All That Apply Any of the Below Risk Factors Present?: No Each Risk Factor Represents 3 Points: Age 75 years or older Other congenital or acquired thrombophilia - If yes, enter type in comment: No Thrombosis Risk Factor Assessment Total Risk Factor Score: 3 Thrombosis Risk Factor Assessment Level: Moderate Risk
[2020-02-05] MEDS: SODIUM CHLORIDE 0.9% 1,000 ML IV SCH (22:34)
[2020-02-05] MEDS: ATORVASTATIN 80 MG TAB PO SCH (22:34)
[2020-02-05] MEDS: APIXABAN 5 MG TAB PO SCH (22:34)
[2020-02-05] MEDS: ACETAMINOPHEN TAB 500 MG TAB PO SCH (22:37)
[2020-02-06] MEDS: ASCORBIC ACID 500 MG TAB PO SCH (08:54)
[2020-02-06] MEDS: CHOLECALCIFEROL 400 UNIT TAB PO SCH (08:54)
[2020-02-06] MEDS: ACETAMINOPHEN TAB 500 MG TAB PO SCH ×3 (08:54→17:30)
[2020-02-06] MEDS: METOPROLOL SUCCINATE (ER) 25 MG TAB.ER.24H PO SCH (08:54)
[2020-02-06] MEDS: SERTRALINE 50 MG TAB PO SCH (08:54)
[2020-02-06] MEDS: ASPIRIN 81 MG PO SCH (08:54)
[2020-02-06] MEDS: CYANOCOBALAMIN 500 MCG TAB PO SCH (08:54)
[2020-02-06] MEDS: PANTOPRAZOLE 40 MG TABLET PO SCH ×2 (08:54→16:29)
[2020-02-06] MEDS: allopurinoL 100 MG TAB PO SCH (08:55)
[2020-02-06] MEDS: APIXABAN 5 MG TAB PO SCH ×2 (08:55→19:42)
[2020-02-06 08:58] LABS: Calcium 8.6 mg/dL (8.4-10.2); Potassium 3.6 mmol/L (3.5-5.1)
[2020-02-06] MEDS: FUROSEMIDE 10 MG/ML 4 ML VIAL IV SCH ×2 (12:00→19:41)
--- NOTE | 2020-02-06 13:55 | P.CRDCN ---
History of Present Illness History of present illness: HISTORY OF PRESENTING ILLNESS This is a pleasant 79-year-old male past medical history significant for coronary artery disease status post bypass grafting in 1995, ischemic cardiomyopathy status post AICD, chronic systolic heart failure, hypertension, dyslipidemia and paroxysmal atrial fibrillation maintained on Eliquis. He follows in the office with Dr. Villalobos. We have been asked to see in consultation for elevated troponin. He was discharged from the hospital last week where he was being treated for dehydration and acute kidney injury. He states he left the hospital he was feeling in his usual state of health however yesterday while he was walking into the store he started feeling acutely short of breath. He states his breathing became worse while he was shopping prompting him to come to the hospital for further evaluation. He denies associated chest pain. He did have some slight cough and generalized weakness. The patient states since losing his one year ago he has had no energy or desire to do anything. On last admission his entreto was held to be re-evaluated as an outpatient and diuretics were resumed at lower doses. DIAGNOSTICS EKG reveals ventricular paced rhythm with frequent PVCs. Telemetry tracings indicate sinus rhythm with PVCs. Chest xray negative for acute cardiopulmonary process. Laboratory reviewed, WBC 8.6, hemoglobin 11.2, platelets 177, sodium 141, potassium 3.6, creatinine on admission 1.56 down to 1.28 today, lactic acid on admission 2. 8 repeat after hydration 1.5, troponin 0.435, 0.316 and 0.335, NTproBNP 18,300. Current cardiac medications include Eliquis 5 mg twice a day, aspirin 81 mg daily, atorvastatin 80 mg daily, Lasix 40 mg daily, Toprol 25 mg daily Aldactone 25 mg daily. Most recent echocardiogram obtained February 2018 revealed severely impaired LV systolic function with ejection fraction 20-25% with global hypokinesia noted, grade 3 diastolic dysfunction, severely dilated left atrium, moderate mitral regurgitation and mild tricuspid regurgitation. REVIEW OF SYSTEMS At the time of my exam: CONSTITUTIONAL: Complains of generalized weakness and overall feelings of depression and sadness. Denies fever or chills. CARDIOVASCULAR: Denies chest pain, shortness of breath, orthopnea, PND or palpitations. RESPIRATORY: Denies cough. GASTROINTESTINAL: Denies abdominal pain, diarrhea, constipation, nausea or vomiting. MUSCULOSKELETAL: Denies myalgias. NEUROLOGIC: Denies numbness, tingling or weakness. ENDOCRINE: Denies fatigue, weight change, polydipsia or polyurina. GENITOURINARY: Denies burning, hematuria or urgency with micturation. HEMATOLOGIC: Denies history of anemia or bleeding. PHYSICAL EXAMINATION Blood pressure 131/89 heart rate 68 afebrile and maintaining oxygen saturation on room air. CONSTITUTIONAL: No apparent distress. HEENT: Head is normocephalic. Pupils are equal, round. Sclerae anicteric. Mucous membranes of the mouth are moist. No JVD. No carotid bruit. CHEST EXAMINATION: Lungs are clear to auscultation. No chest wall tenderness is noted on palpation or with deep breathing. HEART EXAMINATION: Irregular rate and rhythm. S1, S2 heard. No murmurs, gallops or rub. ABDOMEN: Soft, nontender. Positive bowel sounds. EXTREMITIES: 2+ peripheral pulses, no lower extremity edema and no calf tenderness. NEUROLOGIC EXAMINATION: Patient is awake, alert and oriented x3. ASSESSMENT Acute on chronic systolic heart failure Lactic acidosis Troponin leak of unclear etiology. Likely related to acute renal failure Acute renal failure, improving from previous admission Generalized weakness Depression surrounding loss of his 1-year ago Ischemic cardiomyopathy s/p AICD Hypertension Dyslipidemia Paroxysmal atrial fibrillation on eliquis PLAN Diurese with IV lasix for 24 hours. Follow renal function and electrolytes in the morning. Decrease IV fluids to KVO. Request physical therapy to evaluate and treat the patient. Thank you kindly for this consultation. Nurse Practitioner note has been reviewed, I agree with a documented findings and plan of care. Patient was seen and examined. Past Medical History Past Medical History: Coronary Artery Disease (CAD), Heart Failure, Renal Disease History of Any Multi-Drug Resistant Organisms: None Reported Past Surgical History: Coronary Bypass/CABG Additional Past Surgical History / Comment(s): KIELAG in 1995 Past Anesthesia/Blood Transfusion Reactions: No Reported Reaction Past Psychological History: No Psychological Hx Reported Smoking Status: Never smoker Past Alcohol Use History: None Reported Past Drug Use History: None Reported - Past Family History Father Family Medical History: Coronary Artery Disease (CAD) Mother Family Medical History: Coronary Artery Disease (CAD) Medications and Allergies Home Medications Medication Instructions Recorded Confirmed Type Acetaminophen Tab [Tylenol] 500 mg PO QID 02/03/19 02/05/20 History Ascorbic Acid [Vitamin C] 500 mg PO DAILY 02/03/19 02/05/20 History Aspirin EC [Ecotrin Low Dose] 81 mg PO DAILY 02/03/19 02/05/20 History [place]-3 Fatty Acids/Fish Oil [Fish 1 cap PO BID 02/03/19 02/05/20 History Oil 1,000 mg Softgel] Omeprazole 20 mg PO DAILY 02/03/19 02/05/20 History Apixaban [Eliquis] 5 mg PO BID #60 tab 02/07/19 02/05/20 Rx Metoprolol Succinate (ER) [Toprol 25 mg PO DAILY #30 tab.er.24h 04/10/19 02/05/20 Rx XL] Allopurinol [Zyloprim] 100 mg PO DAILY 01/28/20 02/05/20 History Atorvastatin [Lipitor] 80 mg PO HS 01/28/20 02/05/20 History Cholecalciferol (Vitamin D3) 125 mcg PO DAILY 01/28/20 02/05/20 History [Vitamin D3] Cyanocobalamin (Vitamin B-12) 1,000 mcg PO DAILY 01/28/20 02/05/20 History [Vitamin B-12] Sertraline [Zoloft] 50 mg PO DAILY 01/28/20 02/05/20 History Spironolactone [Aldactone] 25 mg PO DAILY 01/28/20 02/05/20 History Furosemide [Lasix] 40 mg PO DAILY@1400 #0 02/01/20 02/05/20 Rx Allergies Allergy/AdvReac Type Severity Reaction Status Date / Time No Known Allergies Allergy Verified 02/05/20 11:47 Physical Exam Vitals: Vital Signs Temp Pulse Pulse Resp BP BP Pulse Ox 02/06/20 04:00 97.9 F 68 22 131/89 96 02/06/20 02:47 97.9 F 68 16 131/89 95 02/06/20 02:00 68 22 02/06/20 00:00 98.8 F 59 L 17 119/71 96 02/05/20 20:00 97.8 F 60 18 119/73 95 02/05/20 15:04 97.8 F 68 16 103/59 93 L 02/05/20 14:17 89 18 110/67 02/05/20 14:00 68 18 02/05/20 13:37 65 18 110/67 98 Intake and Output 1202/06/20 02/06/20 22:59 06:59 14:59 Intake Total 240 780 Balance 240 780 Intake: Oral 240 780 Other: Voiding Method Toilet Toilet # Voids 1 1 Weight 68 kg Results 02/05/20 10:29 02/06/20 08:15 Cardiac Enzymes 02/05/20 02/05/20 02/05/20 Range/Units 10:29 10:29 13:30 AST 47 (17-59) U/L Troponin I 0.435 H* 0.316 H* (0.000-0.034) ng/mL 02/05/20 Range/Units 17:02 AST (17-59) U/L Troponin I 0.335 H* (0.000-0.034) ng/mL Coagulation 02/05/20 Range/Units 10:29 PT 11.3 (9.0-12.0) sec APTT 29.8 (22.0-30.0) sec CBC 02/05/20 Range/Units 10:29 WBC 8.6 (3.8-10.6) k/uL RBC 3.54 L (4.30-5.90) m/uL Hgb 11.2 L (13.0-17.5) gm/dL Hct 32.6 L (39.0-53.0) % Plt Count 177 (150-450) k/uL Comprehensive Metabolic Panel 02/05/20 02/06/20 Range/Units 10:29 08:15 Sodium 143 141 (137-145) mmol/L Potassium 3.7 3.6 (3.5-5.1) mmol/L Chloride 106 109 H (98-107) mmol/L Carbon Dioxide 27 28 (22-30) mmol/L BUN 22 H 21 H (9-20) mg/dL Creatinine 1.56 H 1.28 H (0.66-1.25) mg/dL Glucose 120 H 156 H (74-99) mg/dL Calcium 8.9 8.6 (8.4-10.2) mg/dL AST 47 (17-59) U/L ALT 55 H (4-49) U/L Alkaline Phosphatase 66 (38-126) U/L Total Protein 6.4 (6.3-8.2) g/dL Albumin 4.0 (3.5-5.0) g/dL Current Medications Generic Name Dose Route Start Last Admin Trade Name Freq PRN Reason Stop Dose Admin Acetaminophen 500 mg 02/05/20 22:00 02/06/20 08:54 Acetaminophen Tab 500 Mg Tab PO 500 mg QID SUNSHINE Administration Allopurinol 100 mg 02/06/20 09:00 02/06/20 08:55 Allopurinol 100 Mg Tab PO 100 mg DAILY SUNSHINE Administration Apixaban 5 mg 02/05/20 21:45 02/06/20 08:55 Apixaban 5 Mg Tab PO 5 mg BID SUNSHINE Administration Ascorbic Acid 500 mg 02/06/20 09:00 02/06/20 08:54 Ascorbic Acid 500 Mg Tab PO 500 mg DAILY SUNSHINE Administration Aspirin 81 mg 02/06/20 09:00 02/06/20 08:54 Aspirin 81 Mg PO 81 mg DAILY SUNSHINE Administration Atorvastatin Calcium 80 mg 02/05/20 21:45 02/05/20 22:34 Atorvastatin 80 Mg Tab PO 80 mg HS SUNSHINE Administration Cholecalciferol 400 unit 02/06/20 09:00 02/06/20 08:54 Cholecalciferol 400 Unit Tab PO 400 unit DAILY SUNSHINE Administration Cyanocobalamin 1,000 mcg 02/06/20 09:00 02/06/20 08:54 Cyanocobalamin 500 Mcg Tab PO 1,000 mcg DAILY SUNSHINE Administration Sodium Chloride 1,000 mls @ 50 mls/hr 02/05/20 21:45 02/05/20 22:34 Saline 0.9% IV 50 mls/hr .Q20H SUNSHINE Administration Metoprolol Succinate 25 mg 02/06/20 09:00 02/06/20 08:54 Metoprolol Succinate (Er) 25 Mg Tab.Er.24h PO 25 mg DAILY SUNSHINE Administration Nitroglycerin 0.4 mg 02/05/20 12:51 Nitroglycerin Sl Tabs 0.4 Mg Tab SUBLINGUAL Q5M PRN Chest Pain Pantoprazole Sodium 40 mg 02/06/20 09:00 02/06/20 08:54 Pantoprazole 40 Mg Tablet PO 40 mg AC-LUNCH SUNSHINE Administration Sertraline HCl 50 mg 02/06/20 09:00 02/06/20 08:54 Sertraline 50 Mg Tab PO 50 mg DAILY SUNSHINE Administration Intake and Output 02/05/20 02/06/20 02/06/20 22:59 06:59 14:59 Intake Total 240 780 Balance 240 780 Intake: Oral 240 780 Other: Voiding Method Toilet Toilet # Voids 1 1 Weight 68 kg 02/05/20 10:29 02/06/20 08:15
[2020-02-06] MEDS: ATORVASTATIN 80 MG TAB PO SCH (19:42)
[2020-02-06] MEDS: SODIUM CHLORIDE 0.9% 1,000 ML IV SCH (19:42)
--- NOTE | 2020-02-06 21:10 | P.PN ---
Progress Note - Text Progress Note Date: 02/06/20 Chief Complaint: Feeling unwell History of presenting complaint 79-year-old patient of Dr. Daly, chronic stable medical conditions include moderate mitral regurgitation, coronary artery disease bypass, essential hypertension, hyperlipidemia, ascending thoracic aortic aneurysm 4.3 cm, EF of 20/25 percent. AICD: Was discharged from the hospital on February 01..Admitted with an acute kidney injury prerenal, from medications, hypotension from volume loss. Diuretics etc. were discontinued. Gently hydrated. Entresto, was discontinued. Aldactone and Lasix was resumed on a smaller dose. Creatinine dropped from 3.16 down to 1.14. BUN dropped from 76 down to 20. Patient now presents feeling just out of sorts somewhat dizzy tired. No chest pain or palpitation. Has gone out shopping. Decided to come to the ER. EKG in the ER was suggestive of pacemaker failure. Creatinine was elevated. No fever no chills. No respiratory symptoms. Admitted with-acute kidney injury with creatinine going from 1.1-1.56. Diuretics were held. Gentle hydration. Today-sitting up in bed. A bit tired. Started on IV Lasix by cardiology. Oral intake fair Review of systems: Was done for constitutional, cardiovascular, GI, pulmonary. relevant finding as above Active Medications Acetaminophen (Acetaminophen Tab 500 Mg Tab) 500 mg PO QID [facility] Last Admin: 02/06/20 17:30 Dose: 500 mg Documented by: Allopurinol (Allopurinol 100 Mg Tab) 100 mg PO DAILY [facility] Last Admin: 02/06/20 08:55 Dose: 100 mg Documented by: Apixaban (Apixaban 5 Mg Tab) 5 mg PO BID [facility] Last Admin: 02/06/20 19:42 Dose: 5 mg Documented by: Ascorbic Acid (Ascorbic Acid 500 Mg Tab) 500 mg PO DAILY [facility] Last Admin: 02/06/20 08:54 Dose: 500 mg Documented by: Aspirin (Aspirin 81 Mg) 81 mg PO DAILY [facility] Last Admin: 02/06/20 08:54 Dose: 81 mg Documented by: Atorvastatin Calcium (Atorvastatin 80 Mg Tab) 80 mg PO HS [facility] Last Admin: 02/06/20 19:42 Dose: 80 mg Documented by: Cholecalciferol (Cholecalciferol 400 Unit Tab) 400 unit PO DAILY [facility] Last Admin: 02/06/20 08:54 Dose: 400 unit Documented by: Cyanocobalamin (Cyanocobalamin 500 Mcg Tab) 1,000 mcg PO DAILY [facility] Last Admin: 02/06/20 08:54 Dose: 1,000 mcg Documented by: Furosemide (Furosemide 10 Mg/Ml 4 Ml Vial) 40 mg IV Q12HR [facility] Last Admin: 02/06/20 19:41 Dose: 40 mg Documented by: Sodium Chloride (Saline 0.9%) 1,000 mls @ 20 mls/hr IV .Q24H [facility] Last Admin: 02/06/20 19:42 Dose: Not Given Documented by: Metoprolol Succinate (Metoprolol Succinate (Er) 25 Mg Tab.Er.24h) 25 mg PO DAILY [facility] Last Admin: 02/06/20 08:54 Dose: 25 mg Documented by: Nitroglycerin (Nitroglycerin Sl Tabs 0.4 Mg Tab) 0.4 mg SUBLINGUAL Q5M PRN PRN Reason: Chest Pain Pantoprazole Sodium (Pantoprazole 40 Mg Tablet) 40 mg PO AC-LUNCH [facility] Last Admin: 02/06/20 16:29 Dose: Not Given Documented by: Sertraline HCl (Sertraline 50 Mg Tab) 50 mg PO DAILY [facility] Last Admin: 02/06/20 08:54 Dose: 50 mg Documented by: Physical examination: VITAL SIGNS: 98, 68, 16, 105% 65, 98% on 3 L GENERAL: Declining in bed, comfortable EYES: Pupils equal. Conjunctiva normal. HEENT: External appearance of nose and ears normal, oral cavity grossly normal decreased hearing. NECK: JVD not raised; masses not palpable. HEART: First and second heart sounds are normal; no edema. LUNGS: Respiratory rate normal; decreased breath sounds. ABDOMEN: Soft, nontender, liver spleen not palpable, no masses palpable. PSYCH: Alert and oriented x3; mood and affect normal. INVESTIGATIONS, reviewed in the clinical context: February 05: Potassium 3.6 creatinine 1.28 Troponin I 0.435, 0.316, 0.336 Lactic acidosis 2.8, repeat 1.5 White count 8.6 hemoglobin 11.2 platelets 177 potassium 3.7 bun 22 creatinine 1.56 Previous testing: Bun 20 creatinine 1.14 on January 31 Assessment: -Acute kidney injury likely prerenal from diuretics. -AICD/pacemaker malfunction as per EKG in the ER -Hypotension from volume loss-better with IV fluids -troponin leak, from acute kidney injury. No evidence of acute myocardial infarction -chronic congestive heart failure from systolic dysfunction EF 20-25%, -Moderate mitral regurgitation nonrheumatic -Coronary artery disease prior history of coronary artery bypass -Essential hypertension -Hyperlipidemia -Ascending thoracic aortic aneurysm 4.3 cm Plan: Patient was started on IV Lasix 40 every 12 by cardiology. Repeat BMP in the morning.
[2020-02-07] MEDS: ACETAMINOPHEN TAB 500 MG TAB PO SCH ×3 (06:00→13:28)
[2020-02-07 10:32] VITALS: RESP 16; TEMP 97.6
[2020-02-07] MEDS: FUROSEMIDE 10 MG/ML 4 ML VIAL IV SCH (10:33)
[2020-02-07] MEDS: CYANOCOBALAMIN 500 MCG TAB PO SCH (10:33)
[2020-02-07] MEDS: METOPROLOL SUCCINATE (ER) 25 MG TAB.ER.24H PO SCH (10:33)
[2020-02-07] MEDS: APIXABAN 5 MG TAB PO SCH (10:33)
[2020-02-07] MEDS: ASPIRIN 81 MG PO SCH (10:33)
[2020-02-07] MEDS: ASCORBIC ACID 500 MG TAB PO SCH (10:33)
[2020-02-07] MEDS: CHOLECALCIFEROL 400 UNIT TAB PO SCH (10:34)
[2020-02-07] MEDS: SERTRALINE 50 MG TAB PO SCH (10:34)
[2020-02-07] MEDS: allopurinoL 100 MG TAB PO SCH (10:34)
[2020-02-07 12:04] LABS: Calcium 8.7 mg/dL (8.4-10.2); Potassium 3.4 mmol/L (3.5-5.1)
[2020-02-07] MEDS ORDERED: POTASSIUM CHLORIDE ER 20 MEQ TAB.ER PO SCH (12:15)
--- NOTE | 2020-02-07 12:17 | P.PN ---
Subjective HISTORY OF PRESENTING ILLNESS This is a pleasant 79-year-old male past medical history significant for coronary artery disease status post bypass grafting in 1995, ischemic cardiomyopathy status post AICD, chronic systolic heart failure, hypertension, dyslipidemia and paroxysmal atrial fibrillation maintained on Eliquis. He follows in the office with Dr. Villalobos. He Is seen and examined sitting up in bed in no acute distress. He denies any worsening shortness of breath. He has no chest pain, dizziness or palpitations. Blood pressure 124/63 heart rate 55 afebrile maintaining oxygen saturation on room air. Laboratory data reviewed, sodium 140, potassium 3.4 and creatinine 1.35. 24-hour urine output documented as 800 mL. PHYSICAL EXAMINATION CONSTITUTIONAL: No apparent distress. HEENT: Head is normocephalic. Pupils are equal, round. Sclerae anicteric. Mucous membranes of the mouth are moist. No JVD. No carotid bruit. CHEST EXAMINATION: Lungs are clear to auscultation. No chest wall tenderness is noted on palpation or with deep breathing. HEART EXAMINATION: Irregular rate and rhythm. S1, S2 heard. No murmurs, gallops or rub. EXTREMITIES: 2+ peripheral pulses, no lower extremity edema and no calf tenderness. ASSESSMENT Acute on chronic systolic heart failure Lactic acidosis Troponin leak of unclear etiology. Likely related to acute renal failure Acute renal failure, improving from previous admission Hypokalemia Generalized weakness Depression surrounding loss of his 1-year ago Ischemic cardiomyopathy s/p AICD Hypertension Dyslipidemia Paroxysmal atrial fibrillation on eliquis PLAN Transition to oral diuretics, 40 mg in the morning and 20 mg in the afternoon along with daily potassium supplementation. Nurse Practitioner note has been reviewed, I agree with a documented findings and plan of care. Patient was seen and examined. Objective - Vital Signs Vital signs: Vital Signs Temp 97.6 F 02/07/20 08:30 Pulse 55 L 02/07/20 08:30 Resp 16 02/07/20 08:30 BP 124/63 02/07/20 08:30 Pulse Ox 95 02/07/20 12:04 Intake & Output 02/06/20 02/07/20 02/07/20 18:59 06:59 18:59 Intake Total 1020 Output Total 800 Balance 1020 -800 Weight 72.7 kg Intake: Oral 1020 Output: Urine 800 Other: Voiding Method Toilet Toilet # Voids 1 - Labs CBC & Chem 7: 02/05/20 10:29 02/07/20 11:35 Labs: Abnormal Lab Results - Last 24 Hours (Table) 02/07/20 Range/Units 11:35 Potassium 3.4 L (3.5-5.1) mmol/L Chloride 108 H (98-107) mmol/L BUN 29 H (9-20) mg/dL Creatinine 1.35 H (0.66-1.25) mg/dL Glucose 143 H (74-99) mg/dL
[2020-02-07] MEDS: PANTOPRAZOLE 40 MG TABLET PO SCH (13:27)
[2020-02-07] MEDS ORDERED: FUROSEMIDE 20 MG TAB PO SCH ×2 (16:00)
[2020-02-07 16:06] VITALS: BP 101/62; PULSE 52
[2020-02-08] MEDS ORDERED: FUROSEMIDE 40 MG TAB PO SCH (09:00)
--- NOTE | 2020-02-08 16:47 | P.DS ---
Providers Date of admission: 02/05/20 12:51 Expected date of discharge: 02/07/20 Attending physician: Andrea Birmingham Consults: 02/05/20 12:51 Consult Physician Urgent Consulting Provider: Virgilio Griggs Consult Reason/Comments: Suspect pacemaker failure, elevated troponin Do you want consulting provider notified?: Yes Primary care physician: Juan Pablo Daly [facility] Course: Chief Complaint: Feeling unwell History of presenting complaint 79-year-old patient of Dr. Daly, chronic stable medical conditions include moderate mitral regurgitation, coronary artery disease bypass, essential hypertension, hyperlipidemia, ascending thoracic aortic aneurysm 4.3 cm, EF of 20/25 percent. AICD: Was discharged from the hospital on February 01..Admitted with an acute kidney injury prerenal, from medications, hypotension from volume loss. Diuretics etc. were discontinued. Gently hydrated. Entresto, was discontinued. Aldactone and Lasix was resumed on a smaller dose. Creatinine dropped from 3.16 down to 1.14. BUN dropped from 76 down to 20. Patient now presents feeling just out of sorts somewhat dizzy tired. No chest pain or palpitation. Has gone out shopping. Decided to come to the ER. EKG in the ER was suggestive of pacemaker failure. Creatinine was elevated. No fever no chills. No respiratory symptoms. Admitted with-acute kidney injury with creatinine going from 1.1-1.56. Diuretics were held. Gentle hydration. Also had acute congestive heart exacerbation. Short course of IV Lasix given. Creatinine on discharge 1.35 Today-better. Breathing stable. Cleared by cardiology Discussion and discharge planning more than 35 minutes [employer]: Dr. MIGDALIA Connor from cardiology Physical examination: VITAL SIGNS: Afebrile, 52, 16, 101/62, 95% on room air GENERAL: Sitting up, comfortable EYES: Pupils equal. Conjunctiva normal. HEENT: External appearance of nose and ears normal, oral cavity grossly normal decreased hearing. NECK: JVD not raised; masses not palpable. HEART: First and second heart sounds are normal; no edema. LUNGS: Respiratory rate normal; decreased breath sounds. ABDOMEN: Soft, nontender, liver spleen not palpable, no masses palpable. PSYCH: Alert and oriented x3; mood and affect normal. INVESTIGATIONS, reviewed in the clinical context: February 06: Potassium 3.4 creatinine 1.35 February 05: Potassium 3.6 creatinine 1.28 Troponin I 0.435, 0.316, 0.336 Lactic acidosis 2.8, repeat 1.5 White count 8.6 hemoglobin 11.2 platelets 177 potassium 3.7 bun 22 creatinine 1.56 Previous testing: Bun 20 creatinine 1.14 on January 31 Assessment: -Acute kidney injury likely prerenal from diuretics. -AICD/pacemaker malfunction as per EKG in the ER -Hypotension from volume loss-better with IV fluids -troponin leak, from acute kidney injury. No evidence of acute myocardial infarction -Acute on chronic congestive heart failure from systolic dysfunction EF 20-25%, -Moderate mitral regurgitation nonrheumatic -Coronary artery disease prior history of coronary artery bypass -Essential hypertension -Hyperlipidemia -Ascending thoracic aortic aneurysm 4.3 cm Disposition: Home Plan - Discharge Summary Discharge Rx Participant: Yes New Discharge Prescriptions: New Furosemide [Lasix] 20 mg PO DAILY tab Continue [place]-3 Fatty Acids/Fish Oil [Fish Oil 1,000 mg Softgel] 1 cap PO BID Aspirin EC [Ecotrin Low Dose] 81 mg PO DAILY Ascorbic Acid [Vitamin C] 500 mg PO DAILY Omeprazole 20 mg PO DAILY Acetaminophen Tab [Tylenol] 500 mg PO QID Apixaban [Eliquis] 5 mg PO BID #60 tab Metoprolol Succinate (ER) [Toprol XL] 25 mg PO DAILY #30 tab.er.24h Sertraline [Zoloft] 50 mg PO DAILY Cholecalciferol (Vitamin D3) [Vitamin D3] 125 mcg PO DAILY Spironolactone [Aldactone] 25 mg PO DAILY Atorvastatin [Lipitor] 80 mg PO HS Allopurinol [Zyloprim] 100 mg PO DAILY Cyanocobalamin (Vitamin B-12) [Vitamin B-12] 1,000 mcg PO DAILY Furosemide [Lasix] 40 mg PO DAILY@1400 #0 Discharge Medication List Acetaminophen Tab [Tylenol] 500 mg PO QID 02/03/19 [History] Ascorbic Acid [Vitamin C] 500 mg PO DAILY 02/03/19 [History] Aspirin EC [Ecotrin Low Dose] 81 mg PO DAILY 02/03/19 [History] [place]-3 Fatty Acids/Fish Oil [Fish Oil 1,000 mg Softgel] 1 cap PO BID 02/03/19 [History] Omeprazole 20 mg PO DAILY 02/03/19 [History] Apixaban [Eliquis] 5 mg PO BID #60 tab 02/07/19 [Rx] Metoprolol Succinate (ER) [Toprol XL] 25 mg PO DAILY #30 tab.er.24h 04/10/19 [R x] Allopurinol [Zyloprim] 100 mg PO DAILY 01/28/20 [History] Atorvastatin [Lipitor] 80 mg PO HS 01/28/20 [History] Cholecalciferol (Vitamin D3) [Vitamin D3] 125 mcg PO DAILY 01/28/20 [History] Cyanocobalamin (Vitamin B-12) [Vitamin B-12] 1,000 mcg PO DAILY 01/28/20 [History] Sertraline [Zoloft] 50 mg PO DAILY 01/28/20 [History] Spironolactone [Aldactone] 25 mg PO DAILY 01/28/20 [History] Furosemide [Lasix] 40 mg PO DAILY@1400 #0 02/01/20 [Rx] Furosemide [Lasix] 20 mg PO DAILY tab 02/07/20 [Rx] Follow up Appointment(s)/Referral(s): Juan Pablo Daly MD [Primary Care Provider] - 02/10/20 2:20 pm (Recheck BMP) Oliver Villalobos MD [STAFF PHYSICIAN] - 02/14/20 11:00 am Patient Instructions/Handouts: Heart Failure (DC), Acute Kidney Injury (DC) Activity/Diet/Wound Care/Special Instructions: bmp - 5 days Discharge Disposition: HOME SELF-CARE
== END 2020-02-07 16:50 | disposition home or self-care (01) ==
LOC: EC 09:37 → 3SCARD 12:51
PROVIDERS: ADMIT Hospitalist; ATTEND Hospitalist
DX: N17.9 Acute kidney failure, unspecified (principal); T82.119A Breakdown (mechanical) of unspecified cardiac electronic device, initial encounter; Y71.2 Prosthetic and other implants, materials and accessory cardiovascular devices associated with adverse incidents; I95.9 Hypotension, unspecified; I11.0 Hypertensive heart disease with heart failure; I50.23 Acute on chronic systolic (congestive) heart failure; E78.5 Hyperlipidemia, unspecified; I71.2 Thoracic aortic aneurysm, without rupture; E87.2 Acidosis; E87.6 Hypokalemia; F32.9 Major depressive disorder, single episode, unspecified; I48.0 Paroxysmal atrial fibrillation; I34.0 Nonrheumatic mitral (valve) insufficiency; I49.3 Ventricular premature depolarization; I25.5 Ischemic cardiomyopathy; I25.10 Atherosclerotic heart disease of native coronary artery without angina pectoris; Z95.1 Presence of aortocoronary bypass graft; Z95.810 Presence of automatic (implantable) cardiac defibrillator; Z79.01 Long term (current) use of anticoagulants; Z63.4 Disappearance and death of family member; Z79.51 Long term (current) use of inhaled steroids; Z79.82 Long term (current) use of aspirin; Z79.899 Other long term (current) drug therapy; Z82.49 Family history of ischemic heart disease and other diseases of the circulatory system; Z20.828 Contact with and (suspected) exposure to other viral communicable diseases
CPT/HCPCS: 96376 ×2; 96374; 93005 ×2; 99285; 36415; 94760; 97161; 83880; 80053; 80048 ×2; 83605; 83735; 84484; 85025; 85610; 85730; 81003; 87635; 71046; G0378 ×3; J1940 ×2

== ENCOUNTER 2021-10-20 11:02 | Observation (INO) | payer MEDICARE ==
--- NOTE | 2021-10-20 11:26 | ED ---
General Adult HPI - General Chief complaint: Altered Mental Status Stated complaint: AMS Time Seen by Provider: 10/20/21 11:02 Source: patient, EMS, RN notes reviewed, old records reviewed Mode of arrival: EMS Limitations: altered mental status - History of Present Illness Initial comments: this is a 80-year-old male who presents emergency Department because he saw his primary medical care doctor and he was altered mentally. Patient seen in emergency department yesterday and determined that he was alert and oriented 2 occasionally alert and oriented 3 but the primary medical care doctor wanted to see him back in the office of this morning he went and visited his PMD and the PMD decided that he was unsafe to live by himself. Patient has no complaints. Patient denies any headache patient denies numbness weakness. Patient denies any lightheadedness dizziness or near syncopal episode. Patient denies chest pain difficulty breathing shortness of breath. Patient denies any recent fever chills or cough per patient denies abdominal pain patient denies nausea vomiting diarrhea. Patient denies any recent trauma - Related Data Home Medications Medication Instructions Recorded Confirmed Omeprazole 20 mg PO DAILY 02/03/19 10/20/21 allopurinoL [Zyloprim] 100 mg PO DAILY 01/28/20 10/20/21 Furosemide [Lasix] 40 mg PO BID 05/17/21 10/20/21 Potassium Chloride ER [K-Dur 20] 20 meq PO HS 05/17/21 10/20/21 Sertraline HCl [Zoloft] 50 mg PO DAILY 10/19/21 10/20/21 Spironolactone 25 mg PO DAILY 10/19/21 10/20/21 traZODone HCL [Desyrel] 25 mg PO HS 10/19/21 10/20/21 Previous Rx's Medication Instructions Recorded Apixaban [Eliquis] 5 mg PO BID #60 tab 02/07/19 Allergies Allergy/AdvReac Type Severity Reaction Status Date / Time No Known Allergies Allergy Verified 10/20/21 12:52 Review of Systems ROS Statement: Those systems with pertinent positive or pertinent negative responses have been documented in the HPI. ROS Other: All systems not noted in ROS Statement are negative. Past Medical History Past Medical History: Coronary Artery Disease (CAD), Heart Failure, Renal Disease History of Any Multi-Drug Resistant Organisms: None Reported Past Surgical History: Coronary Bypass/CABG Additional Past Surgical History / Comment(s): CABAG in 1995, jeronimo 2021 Past Anesthesia/Blood Transfusion Reactions: No Reported Reaction Past Psychological History: No Psychological Hx Reported Smoking Status: Never smoker Past Alcohol Use History: None Reported Past Drug Use History: None Reported - Past Family History Father Family Medical History: Coronary Artery Disease (CAD) Mother Family Medical History: Coronary Artery Disease (CAD) General Exam - General Exam Comments Initial Comments: GENERAL: Patient is well-developed and well-nourished. Patient is nontoxic and well- hydrated and is in no acute distress. ENT: Neck is soft and supple. No significant lymphadenopathy is noted. Oropharynx is clear. Moist mucous membranes. Neck has full range of motion without eliciting any pain. EYES: The sclera were anicteric and conjunctiva were pink and moist. Extraocular movements were intact and pupils were equal round and reactive to light. Eyelid s were unremarkable. PULMONARY: Unlabored respirations. Good breath sounds bilaterally. No audible rales rhonchi or wheezing was noted. CARDIOVASCULAR: There is a regular rate and rhythm without any murmurs gallops or rubs. ABDOMEN: Soft and nontender with normal bowel sounds. SKIN: Skin is clear with no lesions or rashes and otherwise unremarkable. NEUROLOGIC: Patient is alert and oriented 2. Cranial nerves II through XII are grossly intact. Motor and sensory are also intact. Normal speech, volume and content. Symmetrical smile. MUSCULOSKELETAL: Normal extremities with adequate strength and full range of motion. LYMPHATICS: No significant lymphadenopathy is noted PSYCHIATRIC: Normal psychiatric evaluation. Limitations: altered mental status Course Vital Signs 10/20/21 10/20/21 11:06 12:50 Temperature 97.8 F Pulse Rate 62 60 Respiratory 16 18 Rate Blood Pressure 134/82 108/71 O2 Sat by Pulse 97 96 Oximetry Medical Decision Making - Medical Decision Making EKG shows a paced rhythm at 60 bpm QRS on 70 Q-T intervals 43 QTC is 43. I spoke with Dr. gill the he wanted the patient admitted. I spoke with Dr. Marie she agreed to admit the patient admitted the patient wrote admitting orders. - Lab Data Result diagrams: 10/20/21 11:18 10/20/21 11:18 Lab Results 10/20/21 10/20/21 Range/Units 11:18 11:18 WBC 7.4 (3.8-10.6) k/uL RBC 4.57 (4.30-5.90) m/uL Hgb 13.5 (13.0-17.5) gm/dL Hct 40.8 (39.0-53.0) % MCV 89.3 (80.0-100.0) fL MCH 29.6 (25.0-35.0) pg MCHC 33.2 (31.0-37.0) g/dL RDW 16.0 H (11.5-15.5) % Plt Count 192 (150-450) k/uL MPV 7.4 Neutrophils % 81 % Lymphocytes % 10 % Monocytes % 5 % Eosinophils % 2 % Basophils % 1 % Neutrophils # 6.0 (1.3-7.7) k/uL Lymphocytes # 0.7 L (1.0-4.8) k/uL Monocytes # 0.4 (0-1.0) k/uL Eosinophils # 0.1 (0-0.7) k/uL Basophils # 0.0 (0-0.2) k/uL Anisocytosis Slight Sodium 139 (137-145) mmol/L Potassium 4.6 (3.5-5.1) mmol/L Chloride 106 (98-107) mmol/L Carbon Dioxide 20 L (22-30) mmol/L Anion Gap 13 mmol/L BUN 28 H (9-20) mg/dL Creatinine 1.26 H (0.66-1.25) mg/dL Est GFR (CKD-EPI)AfAm 63 (>60 ml/min/1.73 sqM) Est GFR (CKD-EPI)NonAf 54 (>60 ml/min/1.73 sqM) Glucose 101 H (74-99) mg/dL Calcium 9.2 (8.4-10.2) mg/dL Magnesium 1.9 (1.6-2.3) mg/dL Total Bilirubin 1.2 (0.2-1.3) mg/dL AST 32 (17-59) U/L ALT 13 (4-49) U/L Alkaline Phosphatase 49 (38-126) U/L Total Protein 6.9 (6.3-8.2) g/dL Albumin 4.3 (3.5-5.0) g/dL Disposition Clinical Impression: Altered mental status Disposition: ADMITTED IP TO THIS HOSP Referrals: Malika,Juan Pablo, MD [Primary Care Provider] - 1-2 days Time of Disposition: 13:06
[2021-10-20 11:41] LABS: Anisocytosis Slight; Basophils % (A) 1 %; Eosinophils # (A) 0.1 k/uL (0-0.7); Eosinophils % (A) 2 %; HCT 40.8 % (39.0-53.0); HGB 13.5 gm/dL (13.0-17.5); Lymphocytes # (A) 0.7 k/uL (1.0-4.8); Lymphocytes % (A) 10 %; MCH 29.6 pg (25.0-35.0); MCHC 33.2 g/dL (31.0-37.0); MCV 89.3 fL (80.0-100.0); Mean Platelet Volume 7.4; Monocytes # (A) 0.4 k/uL (0-1.0); Monocytes % (A) 5 %; Neutrophils % (A) 81 %; Platelet Count 192 k/uL (150-450); RBC 4.57 m/uL (4.30-5.90); WBC 7.4 k/uL (3.8-10.6)
[2021-10-20 12:02] LABS: Albumin 4.3 g/dL (3.5-5.0); Calcium 9.2 mg/dL (8.4-10.2); Magnesium 1.9 mg/dL (1.6-2.3); Total Bilirubin 1.2 mg/dL (0.2-1.3); Total Protein 6.9 g/dL (6.3-8.2)
[2021-10-20 12:22] LABS: Potassium 4.6 mmol/L (3.5-5.1)
[2021-10-20] MEDS: FUROSEMIDE 10 MG/ML 4 ML VIAL IV STA ×2 (12:51→12:53)
--- NOTE | 2021-10-20 15:26 | P.HPIM ---
History of Present Illness H&P Date: 10/20/21 History of Presenting Illness: Patient is a very pleasant 80-year-old male with a past medical history of CAD status post CABG and pacemaker placement, .paroxysmal atrial fibrillation, CHF, chronic kidney disease and Dementia. He presented to the emergency department via EMS after being sent by his PCP secondary to concerns of increased confusion and primary care provider's concern that patient is unsafe to return home by himself and has no reported family in this area. Patient arrived to the emergency department alert to person and place confused to time and situation. Patient reports having significant memory loss and forgetfulness, but denies having any recent injuries or falls and denies having any complaints including headache, lightheadedness, dizziness, chest pain, palpitations, shortness of breath, abdominal pain, nausea, vomiting, or experiencing any numb ness/tingling/weakness/swelling in his extremities. Patient reports having a normal healthy appetite. In the emergency department patient underwent full evaluation. Urinalysis completed 10/19/[address] head completed 10/19/21 negative for acute intercranial process showing mild to moderate diffuse age related cerebral atrophy and chronic small vessel ischemic changes. CBC and CMP also showing no significant abnormalities with CMP revealing baseline renal function with BUN 28, creatinine 1.26, GFR 54. Patient was admitted under our services with consult to case management for possible placement and assistance with providing a safe discharge plan. Review of systems: Pertinent positives and negatives as discussed in HPI, a complete review of systems was performed and all other systems are negative. Physical exam: Vital signs reviewed and stable. General: Nontoxic, no distress and appears stated age. Derm: Skin warm and dry, normal coloration for ethnicity. Head: Atraumatic, normocephalic and symmetric. Eyes: EOMs intact, no lid lag, and anicteric sclera Mouth: no lip lesions, mucus membranes moist Cardiovascular: regular rate and rhythm with normal S1S2, no murmur, positive posterior tibial pulses bilaterally, and cap refill < 2 seconds. Lungs: Respirations even, regular, and unlabored on room air. Lungs CTA bilaterally, no rhonchi, no rales, no wheezing, and no accessory muscle usage. Abdominal: soft, nontender to palpation, no guarding, no appreciable organomegaly Ext: ROM intact. No gross muscle atrophy, no edema, no contractures Neuro: Speech clear, face symmetrical and CN II-XII grossly intact with no noted focal neuro deficits Psych: Alert and oriented to person, place, and confused to time and situation. Patient very pleasant and cooperative with appropriate affect. Assessment and Plan of Care: Increased memory loss, advancing dementia Inability to care for herself independently Unsafe living situation as patient lives alone, no reported family in area. However patient reports having grandchildren in [place] but unable to contact because he does not remember their phone number. -Patient admitted to observation pending placement for safe discharge plan. -Case management consulted for assistance -Social work consulted for possible assistance and locating family -Provide safe and supportive care and redirection as needed. History of coronary artery disease status post CABG and pacemaker placement Paroxysmal atrial fibrillation Chronic systolic heart failure with previously known EF of 20-25% -Continue daily cardiac medication regimen with Eliquis, furosemide, and Aldactone. The patient is admitted with an anticipated less than 2 midnight stay for evaluation of increasing memory loss, advancing dementia and unsafe living situation CODE STATUS: Full code DVT prophylaxis: Eliquis Discussed with: Patient and RN Anticipated discharge date: clinical course to determine, likely 1-[address]: SNF versus placement with family if able to locate A total of 45 minutes was spent on the care of this complex patient more than 50% of the time was spent in counseling and care coordination. Past Medical History Past Medical History: Coronary Artery Disease (CAD), Heart Failure, Renal Disease History of Any Multi-Drug Resistant Organisms: None Reported Past Surgical History: Coronary Bypass/CABG, Joint Replacement, Orthopedic Surgery Additional Past Surgical History / Comment(s): CABG in 1995, pacemaker 2021, Bilateral knee surgery Past Anesthesia/Blood Transfusion Reactions: No Reported Reaction Past Psychological History: No Psychological Hx Reported Smoking Status: Former smoker Past Alcohol Use History: None Reported Past Drug Use History: None Reported - Past Family History Father Family Medical History: Coronary Artery Disease (CAD) Mother Family Medical History: Coronary Artery Disease (CAD) Medications and Allergies Home Medications Medication Instructions Recorded Confirmed Type Omeprazole 20 mg PO DAILY 02/03/19 10/20/21 History Apixaban [Eliquis] 5 mg PO BID #60 tab 02/07/19 10/20/21 Rx allopurinoL [Zyloprim] 100 mg PO DAILY 01/28/20 10/20/21 History Furosemide [Lasix] 40 mg PO BID 05/17/21 10/20/21 History Potassium Chloride ER [K-Dur 20] 20 meq PO HS 05/17/21 10/20/21 History Sertraline HCl [Zoloft] 50 mg PO DAILY 10/19/21 10/20/21 History Spironolactone 25 mg PO DAILY 10/19/21 10/20/21 History traZODone HCL [Desyrel] 25 mg PO HS 10/19/21 10/20/21 History Allergies Allergy/AdvReac Type Severity Reaction Status Date / Time No Known Allergies Allergy Verified 10/20/21 12:52 Physical Exam Vitals: Vital Signs Temp Pulse Resp BP Pulse Ox 10/20/21 13:48 60 20 110/70 10/20/21 12:50 60 18 108/71 96 10/20/21 11:06 97.8 F 62 16 134/82 97 Intake and Output 10/20/21 10/20/21 10/20/21 06:59 14:59 22:59 Other: Weight 72.575 kg 72.575 kg Results CBC & Chem 7: 10/20/21 11:18 10/20/21 11:18 Labs: Abnormal Lab Results - Last 24 Hours (Table) 10/20/21 10/20/21 Range/Units 11:18 11:18 RDW 16.0 H (11.5-15.5) % Lymphocytes # 0.7 L (1.0-4.8) k/uL Carbon Dioxide 20 L (22-30) mmol/L BUN 28 H (9-20) mg/dL Creatinine 1.26 H (0.66-1.25) mg/dL Glucose 101 H (74-99) mg/dL Thrombosis Risk Factor Assmnt - Choose All That Apply Any of the Below Risk Factors Present?: No Other Risk Factors: Yes Each Risk Factor Represents 3 Points: Age 75 years or older Thrombosis Risk Factor Assessment Total Risk Factor Score: 3 Thrombosis Risk Factor Assessment Level: Moderate Risk
[2021-10-20] MEDS ORDERED: NALOXONE 0.4 MG/ML 1 ML VIAL IVP PRN (15:27)
[2021-10-20] MEDS: FUROSEMIDE 40 MG TAB PO SCH (16:45)
[2021-10-20] MEDS: APIXABAN 5 MG TAB PO SCH (20:28)
[2021-10-20] MEDS: traZODone HCL 50 MG TAB PO SCH (20:28)
[2021-10-21] MEDS: SERTRALINE 50 MG TAB PO SCH (09:49)
[2021-10-21] MEDS: APIXABAN 5 MG TAB PO SCH ×2 (09:49→20:26)
[2021-10-21] MEDS: PANTOPRAZOLE 40 MG TABLET PO SCH (09:49)
[2021-10-21] MEDS: FUROSEMIDE 40 MG TAB PO SCH ×2 (09:49→16:05)
[2021-10-21] MEDS: ASPIRIN 81 MG PO SCH (09:50)
[2021-10-21] MEDS: SPIRONOLACTONE 25 MG TAB PO SCH (09:50)
[2021-10-21] MEDS: allopurinoL 100 MG TAB PO SCH (09:50)
--- NOTE | 2021-10-21 13:42 | P.PN ---
Subjective Progress Note Date: 10/21/21 History of Presenting Illness: Patient is a very pleasant 80-year-old male with a past medical history of CAD status post CABG and pacemaker placement, .paroxysmal atrial fibrillation, CHF, chronic kidney disease and Dementia. He presented to the emergency department via EMS after being sent by his PCP secondary to concerns of increased confusion and primary care provider's concern that patient is unsafe to return home by himself and has no reported family in this area. Patient arrived to the emergency department alert to person and place confused to time and situation. Patient reports having significant memory loss and forgetfulness, but denies having any recent injuries or falls and denies having any complaints including headache, lightheadedness, dizziness, chest pain, palpitations, shortness of breath, abdominal pain, nausea, vomiting, or experiencing any numbness/tingling/weakness/swelling in his extremities. Patient reports having a normal healthy appetite. In the emergency department patient underwent full evaluation. Urinalysis completed 10/19/[address] head completed 10/19/21 negative for acute intercranial process showing mild to moderate diffuse age related cerebral atrophy and chronic small vessel ischemic changes. CBC and CMP also showing no significant abnormalities with CMP revealing baseline renal function with BUN 28, creatinine 1.26, GFR 54. Patient was admitted under our services with consult to case management for possible placement and assistance with providing a safe discharge plan. Hospital Course: Pt appears more conversational today and is A+O x 3, however, appears to have a lot of confabulations about his understanding of why he came to the hospital. ST and psychiatry consulted regarding capacity. Physical exam: Gen: awake, alert HEENT: normocephalic, atraumatic, good hearing acuity, moist mucous membranes Resp: good air exchange, breathing comfortably with no accessory muscle use CVS: good distal perfusion x 4, GI: soft, NTTP, ND : no SPT, no CVAT, stevens catheter not present MSK: no pitting edema, no clubbing Neuro: non-focal, moving all extremities Psych: cooperative, euthymic mood Assessment and Plan of Care: Increased memory loss, advancing dementia Inability to care for himself independently Unsafe living situation as patient lives alone, no reported family in area. However patient reports having grandchildren in [place] but unable to contact because he does not remember their phone number. -Patient admitted to observation pending placement for safe discharge plan. -Case management consulted for assistance -Social work consulted for possible assistance and locating family -Provide safe and supportive care and redirection as needed. -ST and psychiatry consult pending for capacity History of coronary artery disease status post CABG and pacemaker placement Paroxysmal atrial fibrillation Chronic systolic heart failure with previously known EF of 20-25% -Continue daily cardiac medication regimen with Eliquis, furosemide, and Aldactone. CODE STATUS: Full code DVT prophylaxis: Eliquis Anticipated discharge date: clinical course to determine, likely 1-[address]: SNF versus placement with family if able to locate Objective - Vital Signs Vital signs: Vital Signs Temp 98 F 10/21/21 13:28 Pulse 61 10/21/21 13:28 Resp 14 10/21/21 13:28 BP 152/88 10/21/21 13:28 Pulse Ox 97 10/21/21 13:28 FiO2 Intake & Output 10/20/21 10/21/21 10/21/21 18:59 06:59 18:59 Intake Total 240 Balance 240 Weight 72.575 kg Intake: Oral 240 Other: # Voids 3 - Labs CBC & Chem 7: 10/20/21 11:18 10/20/21 11:18
--- NOTE | 2021-10-21 13:48 | P.CN ---
Psychiatric Consult - . Consult date: 10/21/21 Consult:: 10/21/21 13:47 IDENTIFYING DATA: This patient is a , retired, 80-year-old male with a significant history of CAD who presents to the hospital for confusion HISTORY OF PRESENT ILLNESS: The patient presented to the hospital on 10/20/2021, brought into the hospital after an evaluation by his primary care physician who expressed concern for the patient's confusion and inability to care for himself. Reportedly, the patient was noted to be very disheveled with bedbugs upon initial presentation the emergency department. Furthermore, the patient was noted to be very confused and was only alert to person and place. Any mental status examination was performed and the patient scored 19 indicating a strong likelihood for dementia. Psychiatry has been consulted for evaluation of capacity for medical decision- making. Upon evaluation on the medical floor, the patient appears to be overtly confused and disoriented. He is only alert and oriented to person today. He is unable to identify his location or the date. The patient believes that he is currently inside an apartment and was unable to verbalize that he was in the hospital. Furthermore, the patient is a very poor historian of the events leading up to this hospitalization. He initially states that he has 3 daughters then later states that he has 2 daughters who , and then later states that all 3 daughters . The patient is unable to provide any clear psychiatric history but is denying any suicidal or homicidal ideation, intention, and/or plan. He is not reporting any auditory or visual hallucinations. He denies any paranoia or other delusions. PAST PSYCHIATRIC HISTORY: The patient is not a trustworthy historian at this time. However, the patient is not reporting any previous psychiatric history. Despite this, the patient is prescribed Zoloft 50 mg daily and trazodone 25 mg at bedtime. PAST MEDICAL HISTORY: Past Medical History: Coronary Artery Disease (CAD), Heart Failure, Renal Disease History of Any Multi-Drug Resistant Organisms: None Reported Past Surgical History: Coronary Bypass/CABG, Joint Replacement, Orthopedic Surgery Additional Past Surgical History / Comment(s): CABG in 1995, pacemaker 2021, Bilateral knee surgery Past Anesthesia/Blood Transfusion Reactions: No Reported Reaction Past Psychological History: No Psychological Hx Reported Smoking Status: Former smoker Past Alcohol Use History: None Reported Past Drug Use History: None Reported ALLERGIES: NO KNOWN DRUG ALLERGIES CHEMICAL DEPENDENCY HISTORY: No reported substance use history FAMILY PSYCHIATRIC/SUBSTANCE USE HISTORY: Patient is unable to recall. SOCIAL HISTORY: Patient is and retired. He currently lives alone. It is uncertain at this time whether he has significant family support or not. He is a poor historian even in regards to which family members are alive. MENTAL STATUS EXAM: General Appearance: Patient appears to be stated age is alert, pleasant, and cooperative. Patient appears to have fair hygiene and grooming wearing hospital gown with fair eye contact. The patient does require frequent redirection during the interview. Behavior: She displays elevated psychomotor activity but was directable to sit down on his bed. Speech: Patient's speech is fluent and nonpressured. Patient rambles. Mood/Affect: Patient reports their mood is "feeling a little hot", affect is euthymic and pleasantly confused. Suicidality/Homicidality: Patient denies any suicidal or homicidal ideation, intention, and/or plan. Perceptions: Patient denies any visual hallucinations and denies any auditory hallucinations Though content/process: The patient appears to be grossly disorganized with some poverty of thought. Memory and concentration: Patient is alert and oriented to self only. His concentration appears to be grossly poor. Judgment and insight: Very poor. IMPRESSIONS: Major neurocognitive disorder - suspect Alzheimer's dementia Unspecified mood disorder PLAN: -At this time patient DOES NOT meet criteria for inpatient psychiatric admission. -Patient DOES NOT have decision making capacity at this time and is unable to reason through and communicate/appreciate the risks, benefits and alternatives to treatment. Judgement does not appear to be impaired secondary to psychiatric pathology but is poor secondary to advanced dementia. -Delirium precautions recommended with patient including - avoiding use of narcotics and IRRIGATION SERVICE TECHNICIAN sedatives, limit anticholinergic medications when possible, frequent re-orientation, minimize use of restraints, open window shades during the day and close them at night -Would recommend the following medication changes/additions: It is unlikely his psychiatric medications are contributing to his current confusion. Continue Zoloft 50 mg by mouth daily for depression/anxiety. Continue trazodone 25 mg by mouth for insomnia. -Agree with plan for patient to be appointed a guardian. Agree with social work consult. -Psychiatry will sign off at this point, please contact with any questions. 10/21/21 13:47
[2021-10-21] MEDS: MELATONIN 3 MG TABLET PO PRN (20:25)
[2021-10-21] MEDS: traZODone HCL 50 MG TAB PO SCH (20:26)
[2021-10-22 07:40] LABS: Glucose,Whole Blood 110 mg/dL (70-110)
[2021-10-22] MEDS: ASPIRIN 81 MG PO SCH (09:27)
[2021-10-22] MEDS: APIXABAN 5 MG TAB PO SCH ×2 (09:27→19:11)
[2021-10-22] MEDS: FUROSEMIDE 40 MG TAB PO SCH ×2 (09:27→16:34)
[2021-10-22] MEDS: allopurinoL 100 MG TAB PO SCH (09:27)
[2021-10-22] MEDS: PANTOPRAZOLE 40 MG TABLET PO SCH (09:27)
[2021-10-22] MEDS: SPIRONOLACTONE 25 MG TAB PO SCH (09:27)
[2021-10-22] MEDS: SERTRALINE 50 MG TAB PO SCH (09:27)
--- NOTE | 2021-10-22 13:45 | P.PN ---
Subjective Progress Note Date: 10/22/21 History of Presenting Illness: Patient is a very pleasant 80-year-old male with a past medical history of CAD status post CABG and pacemaker placement, .paroxysmal atrial fibrillation, CHF, chronic kidney disease and Dementia. He presented to the emergency department via EMS after being sent by his PCP secondary to concerns of increased confusion and primary care provider's concern that patient is unsafe to return home by himself and has no reported family in this area. Patient arrived to the emergency department alert to person and place confused to time and situation. Patient reports having significant memory loss and forgetfulness, but denies having any recent injuries or falls and denies having any complaints including headache, lightheadedness, dizziness, chest pain, palpitations, shortness of breath, abdominal pain, nausea, vomiting, or experiencing any numbness/tingling/weakness/swelling in his extremities. Patient reports having a normal healthy appetite. In the emergency department patient underwent full evaluation. Urinalysis completed 10/19/[address] head completed 10/19/21 negative for acute intercranial process showing mild to moderate diffuse age related cerebral atrophy and chronic small vessel ischemic changes. CBC and CMP also showing no significant abnormalities with CMP revealing baseline renal function with BUN 28, creatinine 1.26, GFR 54. Patient was admitted under our services with consult to case management for possible placement and assistance with providing a safe discharge plan. Hospital Course: Pt has no new complaints today, resting comfortably in bed Physical exam: Gen: awake, alert HEENT: normocephalic, atraumatic, good hearing acuity, moist mucous membranes Resp: good air exchange, breathing comfortably with no accessory muscle use CVS: good distal perfusion x 4, GI: soft, NTTP, ND : no SPT, no CVAT, stevens catheter not present MSK: no pitting edema, no clubbing Neuro: non-focal, moving all extremities Psych: cooperative, euthymic mood Assessment and Plan of Care: Increased memory loss, advancing dementia Inability to care for himself independently Unsafe living situation as patient lives alone, no reported family in area. However patient reports having grandchildren in [place] but unable to contact because he does not remember their phone number. -Patient admitted to observation pending placement for safe discharge plan. -Case management consulted for assistance -Social work consulted for possible assistance and locating family -Provide safe and supportive care and redirection as needed. -ST and psychiatry consult pending for capacity, no capacity -Guardianship in process History of coronary artery disease status post CABG and pacemaker placement Paroxysmal atrial fibrillation Chronic systolic heart failure with previously known EF of 20-25% -Continue daily cardiac medication regimen with Eliquis, furosemide, and A ldactone. CODE STATUS: Full code DVT prophylaxis: Eliquis Anticipated discharge date: clinical course to determine, likely 1-[address]: SNF versus placement with family if able to locate Objective - Vital Signs Vital signs: Vital Signs Temp 97.4 F L 10/22/21 07:00 Pulse 57 L 10/22/21 07:00 Resp 18 10/22/21 07:00 BP 146/73 10/22/21 07:00 Pulse Ox 97 10/22/21 07:00 FiO2 Intake & Output 10/21/21 10/22/21 10/22/21 18:59 06:59 18:59 Intake Total 598 750 Balance 598 750 Intake: Oral 598 750 Other: # Voids 3 2 1 - Labs CBC & Chem 7: 10/20/21 11:18 10/20/21 11:18
[2021-10-22] MEDS: traZODone HCL 50 MG TAB PO SCH (19:11)
[2021-10-23] MEDS: allopurinoL 100 MG TAB PO SCH (08:30)
[2021-10-23] MEDS: PANTOPRAZOLE 40 MG TABLET PO SCH (08:30)
[2021-10-23] MEDS: SERTRALINE 50 MG TAB PO SCH (08:30)
[2021-10-23] MEDS: SPIRONOLACTONE 25 MG TAB PO SCH (08:30)
[2021-10-23] MEDS: APIXABAN 5 MG TAB PO SCH ×2 (08:30→19:47)
[2021-10-23] MEDS: ASPIRIN 81 MG PO SCH (08:30)
[2021-10-23] MEDS: FUROSEMIDE 40 MG TAB PO SCH ×2 (08:30→16:53)
--- NOTE | 2021-10-23 12:44 | P.PN ---
Subjective Progress Note Date: 10/23/21 History of Presenting Illness: Patient is a very pleasant 80-year-old male with a past medical history of CAD status post CABG and pacemaker placement, .paroxysmal atrial fibrillation, CHF, chronic kidney disease and Dementia. He presented to the emergency department via EMS after being sent by his PCP secondary to concerns of increased confusion and primary care provider's concern that patient is unsafe to return home by himself and has no reported family in this area. Patient arrived to the emergency department alert to person and place confused to time and situation. Patient reports having significant memory loss and forgetfulness, but denies having any recent injuries or falls and denies having any complaints including headache, lightheadedness, dizziness, chest pain, palpitations, shortness of breath, abdominal pain, nausea, vomiting, or experiencing any numbness/tingling/weakness/swelling in his extremities. Patient reports having a normal healthy appetite. In the emergency department patient underwent full evaluation. Urinalysis completed 10/19/[address] head completed 10/19/21 negative for acute intercranial process showing mild to moderate diffuse age related cerebral atrophy and chronic small vessel ischemic changes. CBC and CMP also showing no significant abnormalities with CMP revealing baseline renal function with BUN 28, creatinine 1.26, GFR 54. Patient was admitted under our services with consult to case management for possible placement and assistance with providing a safe discharge plan. Hospital Course: Pt has no new complaints today, resting comfortably in bed Physical exam: Gen: awake, alert HEENT: normocephalic, atraumatic, good hearing acuity, moist mucous membranes Resp: good air exchange, breathing comfortably with no accessory muscle use CVS: good distal perfusion x 4, GI: soft, NTTP, ND : no SPT, no CVAT, stevens catheter not present MSK: no pitting edema, no clubbing Neuro: non-focal, moving all extremities Psych: cooperative, euthymic mood Assessment and Plan of Care: Increased memory loss, advancing dementia Inability to care for himself independently Unsafe living situation as patient lives alone, no reported family in area. However patient reports having grandchildren in [place] but unable to contact because he does not remember their phone number. -Patient admitted to observation pending placement for safe discharge plan. -Case management consulted for assistance -Social work consulted for possible assistance and locating family -Provide safe and supportive care and redirection as needed. -ST and psychiatry consult pending for capacity, no capacity -Guardianship in process History of coronary artery disease status post CABG and pacemaker placement Paroxysmal atrial fibrillation Chronic systolic heart failure with previously known EF of 20-25% -Continue daily cardiac medication regimen with Eliquis, furosemide, and A ldactone. CODE STATUS: Full code DVT prophylaxis: Eliquis Anticipated discharge date: clinical course to determine, likely 1-[address]: SNF versus placement with family if able to locate Objective - Vital Signs Vital signs: Vital Signs Temp 98.3 F 10/23/21 07:00 Pulse 43 L 10/23/21 07:00 Resp 16 10/23/21 07:00 BP 115/61 10/23/21 07:00 Pulse Ox 97 10/23/21 07:00 FiO2 Intake & Output 10/22/21 10/23/21 10/23/21 18:59 06:59 18:59 Other: # Voids 1 2 - Labs CBC & Chem 7: 10/20/21 11:18 10/20/21 11:18
[2021-10-23] MEDS: traZODone HCL 50 MG TAB PO SCH (19:47)
[2021-10-24] MEDS: SPIRONOLACTONE 25 MG TAB PO SCH (10:26)
[2021-10-24] MEDS: allopurinoL 100 MG TAB PO SCH (10:27)
[2021-10-24] MEDS: ASPIRIN 81 MG PO SCH (10:27)
[2021-10-24] MEDS: PANTOPRAZOLE 40 MG TABLET PO SCH (10:27)
[2021-10-24] MEDS: APIXABAN 5 MG TAB PO SCH ×2 (10:27→21:33)
[2021-10-24] MEDS: FUROSEMIDE 40 MG TAB PO SCH ×2 (10:27→17:28)
[2021-10-24] MEDS: SERTRALINE 50 MG TAB PO SCH (10:28)
--- NOTE | 2021-10-24 11:49 | P.PN ---
Subjective Progress Note Date: 10/24/21 History of Presenting Illness: Patient is a very pleasant 80-year-old male with a past medical history of CAD status post CABG and pacemaker placement, .paroxysmal atrial fibrillation, CHF, chronic kidney disease and Dementia. He presented to the emergency department via EMS after being sent by his PCP secondary to concerns of increased confusion and primary care provider's concern that patient is unsafe to return home by himself and has no reported family in this area. Patient arrived to the emergency department alert to person and place confused to time and situation. Patient reports having significant memory loss and forgetfulness, but denies having any recent injuries or falls and denies having any complaints including headache, lightheadedness, dizziness, chest pain, palpitations, shortness of breath, abdominal pain, nausea, vomiting, or experiencing any numbness/tingling/weakness/swelling in his extremities. Patient reports having a normal healthy appetite. In the emergency department patient underwent full evaluation. Urinalysis completed 10/19/[address] head completed 10/19/21 negative for acute intercranial process showing mild to moderate diffuse age related cerebral atrophy and chronic small vessel ischemic changes. CBC and CMP also showing no significant abnormalities with CMP revealing baseline renal function with BUN 28, creatinine 1.26, GFR 54. Patient was admitted under our services with consult to case management for possible placement and assistance with providing a safe discharge plan. Hospital Course: Pt has no new complaints today. Pending guardianship, then placement. Physical exam: Gen: awake, alert HEENT: normocephalic, atraumatic, good hearing acuity, moist mucous membranes Resp: good air exchange, breathing comfortably with no accessory muscle use CVS: good distal perfusion x 4, GI: soft, NTTP, ND : no SPT, no CVAT, stevens catheter not present MSK: no pitting edema, no clubbing Neuro: non-focal, moving all extremities Psych: cooperative, euthymic mood Assessment and Plan of Care: Increased memory loss, advancing dementia Inability to care for himself independently Unsafe living situation as patient lives alone, no reported family in area. However patient reports having grandchildren in [place] but unable to contact because he does not remember their phone number. -Patient admitted to observation pending placement for safe discharge plan. -Case management consulted for assistance -Social work consulted for possible assistance and locating family -Provide safe and supportive care and redirection as needed. -ST and psychiatry consult pending for capacity, no capacity -Guardianship in process History of coronary artery disease status post CABG and pacemaker placement Paroxysmal atrial fibrillation Chronic systolic heart failure with previously known EF of 20-25% -Continue daily cardiac medication regimen with Eliquis, furosemide, and Aldactone. CODE STATUS: Full code DVT prophylaxis: Eliquis Anticipated discharge date: clinical course to determine, likely 1-[address]: SNF versus placement with family if able to locate Objective - Vital Signs Vital signs: Vital Signs Temp 97.5 F L 10/24/21 07:00 Pulse 61 10/24/21 07:00 Resp 18 10/24/21 07:00 BP 109/73 10/24/21 07:00 Pulse Ox 100 10/24/21 07:00 FiO2 Intake & Output 10/23/21 10/24/21 10/24/21 18:59 06:59 18:59 Intake Total 118 120 Balance 118 120 Intake: Oral 118 120 Other: # Voids 1 2 - Labs CBC & Chem 7: 10/20/21 11:18 10/20/21 11:18
[2021-10-24] MEDS: traZODone HCL 50 MG TAB PO SCH (21:33)
[2021-10-25] MEDS: PANTOPRAZOLE 40 MG TABLET PO SCH (08:46)
[2021-10-25] MEDS: FUROSEMIDE 40 MG TAB PO SCH ×2 (08:46→16:46)
[2021-10-25] MEDS: APIXABAN 5 MG TAB PO SCH ×2 (08:46→19:48)
[2021-10-25] MEDS: SERTRALINE 50 MG TAB PO SCH (08:47)
[2021-10-25] MEDS: SPIRONOLACTONE 25 MG TAB PO SCH (08:47)
[2021-10-25] MEDS: ASPIRIN 81 MG PO SCH (08:47)
[2021-10-25] MEDS: allopurinoL 100 MG TAB PO SCH (08:47)
--- NOTE | 2021-10-25 10:53 | P.PN ---
Subjective Progress Note Date: 10/25/21 History of Presenting Illness: Patient is a very pleasant 80-year-old male with a past medical history of CAD status post CABG and pacemaker placement, .paroxysmal atrial fibrillation, CHF, chronic kidney disease and Dementia. He presented to the emergency department via EMS after being sent by his PCP secondary to concerns of increased confusion and primary care provider's concern that patient is unsafe to return home by himself and has no reported family in this area. Patient arrived to the emergency department alert to person and place confused to time and situation. Patient reports having significant memory loss and forgetfulness, but denies having any recent injuries or falls and denies having any complaints including headache, lightheadedness, dizziness, chest pain, palpitations, shortness of breath, abdominal pain, nausea, vomiting, or experiencing any numbness/tingling/weakness/swelling in his extremities. Patient reports having a normal healthy appetite. In the emergency department patient underwent full evaluation. Urinalysis completed 10/19/[address] head completed 10/19/21 negative for acute intercranial process showing mild to moderate diffuse age related cerebral atrophy and chronic small vessel ischemic changes. CBC and CMP also showing no significant abnormalities with CMP revealing baseline renal function with BUN 28, creatinine 1.26, GFR 54. Patient was admitted under our services with consult to case management for possible placement and assistance with providing a safe discharge plan. Hospital Course: Pt has no new complaints today. Pending guardianship, then placement. Physical exam: Gen: awake, alert HEENT: normocephalic, atraumatic, good hearing acuity, moist mucous membranes Resp: good air exchange, breathing comfortably with no accessory muscle use CVS: good distal perfusion x 4, GI: soft, NTTP, ND : no SPT, no CVAT, stevens catheter not present MSK: no pitting edema, no clubbing Neuro: non-focal, moving all extremities Psych: cooperative, euthymic mood Assessment and Plan of Care: Increased memory loss, advancing dementia Inability to care for himself independently Unsafe living situation as patient lives alone, no reported family in area. However patient reports having grandchildren in [place] but unable to contact because he does not remember their phone number. -Patient admitted to observation pending placement for safe discharge plan. -Case management consulted for assistance -Social work consulted for possible assistance and locating family -Provide safe and supportive care and redirection as needed. -ST and psychiatry consult pending for capacity, no capacity -Guardianship in process History of coronary artery disease status post CABG and pacemaker placement Paroxysmal atrial fibrillation Chronic systolic heart failure with previously known EF of 20-25% -Continue daily cardiac medication regimen with Eliquis, furosemide, and Aldactone. CODE STATUS: Full code DVT prophylaxis: Eliquis Anticipated discharge date: clinical course to determine, likely 1-[address]: SNF versus placement with family if able to locate Objective - Vital Signs Vital signs: Vital Signs Temp 97.9 F 10/25/21 07:00 Pulse 58 L 10/25/21 07:00 Resp 20 10/25/21 07:00 BP 106/56 10/25/21 07:00 Pulse Ox 96 10/25/21 07:00 FiO2 Intake & Output 10/24/21 10/25/21 10/25/21 18:59 06:59 18:59 Intake Total 120 360 Balance 120 360 Intake: Oral 120 360 Other: # Voids 1 2 - Labs CBC & Chem 7: 10/20/21 11:18 10/20/21 11:18
[2021-10-25] MEDS: traZODone HCL 50 MG TAB PO SCH (19:48)
[2021-10-26] MEDS: APIXABAN 5 MG TAB PO SCH ×2 (08:51→20:10)
[2021-10-26] MEDS: SERTRALINE 50 MG TAB PO SCH (08:51)
[2021-10-26] MEDS: FUROSEMIDE 40 MG TAB PO SCH ×2 (08:52→16:23)
[2021-10-26] MEDS: allopurinoL 100 MG TAB PO SCH (08:52)
[2021-10-26] MEDS: ASPIRIN 81 MG PO SCH (08:52)
[2021-10-26] MEDS: PANTOPRAZOLE 40 MG TABLET PO SCH (08:52)
[2021-10-26] MEDS: SPIRONOLACTONE 25 MG TAB PO SCH (10:04)
[2021-10-26 12:42] VITALS: BMI 25.0
--- NOTE | 2021-10-26 17:09 | P.PN ---
Subjective Progress Note Date: 10/26/21 History of Presenting Illness: Patient is a very pleasant 80-year-old male with a past medical history of CAD status post CABG and pacemaker placement, .paroxysmal atrial fibrillation, CHF, chronic kidney disease and Dementia. He presented to the emergency department via EMS after being sent by his PCP secondary to concerns of increased confusion and primary care provider's concern that patient is unsafe to return home by himself and has no reported family in this area. Patient arrived to the emergency department alert to person and place confused to time and situation. Patient reports having significant memory loss and forgetfulness, but denies having any recent injuries or falls and denies having any complaints including headache, lightheadedness, dizziness, chest pain, palpitations, shortness of breath, abdominal pain, nausea, vomiting, or experiencing any numbness/tingling/weakness/swelling in his extremities. Patient reports having a normal healthy appetite. In the emergency department patient underwent full evaluation. Urinalysis completed 10/19/[address] head completed 10/19/21 negative for acute intercranial process showing mild to moderate diffuse age related cerebral atrophy and chronic small vessel ischemic changes. CBC and CMP also showing no significant abnormalities with CMP revealing baseline renal function with BUN 28, creatinine 1.26, GFR 54. Patient was admitted under our services with consult to case management for possible placement and assistance with providing a safe discharge plan. Hospital Course: Pt has no new complaints today. Pending guardianship, then placement. Physical exam: Gen: awake, alert HEENT: normocephalic, atraumatic, good hearing acuity, moist mucous membranes Resp: good air exchange, breathing comfortably with no accessory muscle use CVS: good distal perfusion x 4, GI: soft, NTTP, ND : no SPT, no CVAT, stevens catheter not present MSK: no pitting edema, no clubbing Neuro: non-focal, moving all extremities Psych: cooperative, euthymic mood Assessment and Plan of Care: Increased memory loss, advancing dementia Inability to care for himself independently Unsafe living situation as patient lives alone, no reported family in area. However patient reports having grandchildren in [place] but unable to contact because he does not remember their phone number. -Patient admitted to observation pending placement for safe discharge plan. -Case management consulted for assistance -Social work consulted for possible assistance and locating family -Provide safe and supportive care and redirection as needed. -ST and psychiatry consult pending for capacity, no capacity -Guardianship in process History of coronary artery disease status post CABG and pacemaker placement Paroxysmal atrial fibrillation Chronic systolic heart failure with previously known EF of 20-25% -Continue daily cardiac medication regimen with Eliquis, furosemide, and Aldactone. CODE STATUS: Full code DVT prophylaxis: Eliquis Family unwilling to take patient home. Will need to wait for guardianship, then placement. Objective - Vital Signs Vital signs: Vital Signs Temp 98.1 F 10/26/21 14:22 Pulse 67 10/26/21 14:22 Resp 16 10/26/21 14:22 BP 107/63 10/26/21 14:22 Pulse Ox 95 10/26/21 14:22 FiO2 Intake & Output 10/25/21 10/26/21 10/26/21 18:59 06:59 18:59 Intake Total 360 Balance 360 Weight 72.575 kg Intake: Oral 360 Other: Voiding Method Toilet Toilet # Voids 1 2 1 - Labs CBC & Chem 7: 10/20/21 11:18 10/20/21 11:18
[2021-10-26] MEDS: traZODone HCL 50 MG TAB PO SCH (20:10)
[2021-10-27] MEDS: ASPIRIN 81 MG PO SCH (09:51)
[2021-10-27] MEDS: PANTOPRAZOLE 40 MG TABLET PO SCH (09:51)
[2021-10-27] MEDS: FUROSEMIDE 40 MG TAB PO SCH ×2 (09:51→16:55)
[2021-10-27] MEDS: APIXABAN 5 MG TAB PO SCH ×2 (09:52→19:47)
[2021-10-27] MEDS: SPIRONOLACTONE 25 MG TAB PO SCH (09:52)
[2021-10-27] MEDS: allopurinoL 100 MG TAB PO SCH (09:52)
[2021-10-27] MEDS: SERTRALINE 50 MG TAB PO SCH (09:52)
--- NOTE | 2021-10-27 14:01 | P.PN ---
Subjective Progress Note Date: 10/27/21 History of Presenting Illness: Patient is a very pleasant 80-year-old male with a past medical history of CAD status post CABG and pacemaker placement, .paroxysmal atrial fibrillation, CHF, chronic kidney disease and Dementia. He presented to the emergency department via EMS after being sent by his PCP secondary to concerns of increased confusion and primary care provider's concern that patient is unsafe to return home by himself and has no reported family in this area. Patient arrived to the emergency department alert to person and place confused to time and situation. Patient reports having significant memory loss and forgetfulness, but denies having any recent injuries or falls and denies having any complaints including headache, lightheadedness, dizziness, chest pain, palpitations, shortness of breath, abdominal pain, nausea, vomiting, or experiencing any numbness/tingling/weakness/swelling in his extremities. Patient reports having a normal healthy appetite. In the emergency department patient underwent full evaluation. Urinalysis completed 10/19/[address] head completed 10/19/21 negative for acute intercranial process showing mild to moderate diffuse age related cerebral atrophy and chronic small vessel ischemic changes. CBC and CMP also showing no significant abnormalities with CMP revealing baseline renal function with BUN 28, creatinine 1.26, GFR 54. Patient was admitted under our services with consult to case management for possible placement and assistance with providing a safe discharge plan. Hospital Course: Pt has no new complaints today. Pending guardianship, then placement. Physical exam: Gen: awake, alert HEENT: normocephalic, atraumatic, good hearing acuity, moist mucous membranes Resp: good air exchange, breathing comfortably with no accessory muscle use CVS: good distal perfusion x 4, GI: soft, NTTP, ND : no SPT, no CVAT, stevens catheter not present MSK: no pitting edema, no clubbing Neuro: non-focal, moving all extremities Psych: cooperative, euthymic mood Assessment and Plan of Care: Increased memory loss, advancing dementia Inability to care for himself independently Unsafe living situation as patient lives alone, no reported family in area. However patient reports having grandchildren in [place] but unable to contact because he does not remember their phone number. -Patient admitted to observation pending placement for safe discharge plan. -Case management consulted for assistance -Social work consulted for possible assistance and locating family -Provide safe and supportive care and redirection as needed. -ST and psychiatry consult pending for capacity, no capacity -Guardianship in process History of coronary artery disease status post CABG and pacemaker placement Paroxysmal atrial fibrillation Chronic systolic heart failure with previously known EF of 20-25% -Continue daily cardiac medication regimen with Eliquis, furosemide, and Aldactone. CODE STATUS: Full code DVT prophylaxis: Eliquis Family unwilling to take patient home. Will need to wait for guardianship, then placement. Objective - Vital Signs Vital signs: Vital Signs Temp 97.4 F L 10/27/21 11:41 Pulse 60 10/27/21 11:41 Resp 17 10/27/21 11:41 BP 118/62 10/27/21 11:41 Pulse Ox 98 10/27/21 11:41 FiO2 Intake & Output 10/26/21 10/27/21 10/27/21 18:59 06:59 18:59 Weight 72.575 kg Other: Voiding Method Toilet Toilet # Voids 1 3 - Labs CBC & Chem 7: 10/20/21 11:18 10/20/21 11:18
[2021-10-27] MEDS: traZODone HCL 50 MG TAB PO SCH (19:47)
[2021-10-28] MEDS: MELATONIN 3 MG TABLET PO PRN (03:36)
[2021-10-28] MEDS: APIXABAN 5 MG TAB PO SCH ×2 (08:58→19:37)
[2021-10-28] MEDS: FUROSEMIDE 40 MG TAB PO SCH ×2 (08:58→16:31)
[2021-10-28] MEDS: allopurinoL 100 MG TAB PO SCH (08:58)
[2021-10-28] MEDS: ASPIRIN 81 MG PO SCH (08:58)
[2021-10-28] MEDS: SERTRALINE 50 MG TAB PO SCH (08:58)
[2021-10-28] MEDS: PANTOPRAZOLE 40 MG TABLET PO SCH (08:58)
[2021-10-28] MEDS: SPIRONOLACTONE 25 MG TAB PO SCH (08:58)
--- NOTE | 2021-10-28 11:07 | P.PN ---
Subjective Progress Note Date: 10/28/21 History of Presenting Illness: Patient is a very pleasant 80-year-old male with a past medical history of CAD status post CABG and pacemaker placement, .paroxysmal atrial fibrillation, CHF, chronic kidney disease and Dementia. He presented to the emergency department via EMS after being sent by his PCP secondary to concerns of increased confusion and primary care provider's concern that patient is unsafe to return home by himself and has no reported family in this area. Patient arrived to the emergency department alert to person and place confused to time and situation. Patient reports having significant memory loss and forgetfulness, but denies having any recent injuries or falls and denies having any complaints including headache, lightheadedness, dizziness, chest pain, palpitations, shortness of breath, abdominal pain, nausea, vomiting, or experiencing any numbness/tingling/weakness/swelling in his extremities. Patient reports having a normal healthy appetite. In the emergency department patient underwent full evaluation. Urinalysis completed 10/19/[address] head completed 10/19/21 negative for acute intercranial process showing mild to moderate diffuse age related cerebral atrophy and chronic small vessel ischemic changes. CBC and CMP also showing no significant abnormalities with CMP revealing baseline renal function with BUN 28, creatinine 1.26, GFR 54. Patient was admitted under our services with consult to case management for possible placement and assistance with providing a safe discharge plan. Hospital Course: Pt has no new complaints today. Pending guardianship, then placement. Physical exam: Gen: awake, alert HEENT: normocephalic, atraumatic, good hearing acuity, moist mucous membranes Resp: good air exchange, breathing comfortably with no accessory muscle use CVS: good distal perfusion x 4, GI: soft, NTTP, ND : no SPT, no CVAT, stevens catheter not present MSK: no pitting edema, no clubbing Neuro: non-focal, moving all extremities Psych: cooperative, euthymic mood Assessment and Plan of Care: Increased memory loss, advancing dementia Inability to care for himself independently Unsafe living situation as patient lives alone, no reported family in area. However patient reports having grandchildren in [place] but unable to contact because he does not remember their phone number. -Patient admitted to observation pending placement for safe discharge plan. -Case management consulted for assistance -Social work consulted for possible assistance and locating family -Provide safe and supportive care and redirection as needed. -ST and psychiatry consult pending for capacity, no capacity -Guardianship in process History of coronary artery disease status post CABG and pacemaker placement Paroxysmal atrial fibrillation Chronic systolic heart failure with previously known EF of 20-25% -Continue daily cardiac medication regimen with Eliquis, furosemide, and Aldactone. CODE STATUS: Full code DVT prophylaxis: Eliquis Family unwilling to take patient home. Will need to wait for guardianship, then placement. Objective - Vital Signs Vital signs: Vital Signs Temp 97.9 F 10/28/21 07:00 Pulse 60 10/28/21 07:00 Resp 16 10/28/21 07:00 BP 113/67 10/28/21 07:00 Pulse Ox 95 10/28/21 07:00 FiO2 Intake & Output 10/27/21 10/28/21 10/28/21 18:59 06:59 18:59 Intake Total 118 118 Balance 118 118 Intake: Oral 118 118 Other: Voiding Method Toilet # Voids 1 4 - Labs CBC & Chem 7: 10/20/21 11:18 10/20/21 11:18
[2021-10-28] MEDS: traZODone HCL 50 MG TAB PO SCH (19:37)
[2021-10-29] MEDS: allopurinoL 100 MG TAB PO SCH (07:35)
[2021-10-29] MEDS: PANTOPRAZOLE 40 MG TABLET PO SCH (07:35)
[2021-10-29] MEDS: APIXABAN 5 MG TAB PO SCH ×2 (07:35→22:13)
[2021-10-29] MEDS: FUROSEMIDE 40 MG TAB PO SCH ×2 (07:35→18:02)
[2021-10-29] MEDS: SERTRALINE 50 MG TAB PO SCH (07:35)
[2021-10-29] MEDS: ASPIRIN 81 MG PO SCH (07:35)
[2021-10-29] MEDS: SPIRONOLACTONE 25 MG TAB PO SCH (07:35)
--- NOTE | 2021-10-29 09:28 | P.PN ---
Subjective Progress Note Date: 10/29/21 History of Presenting Illness: Patient is a very pleasant 80-year-old male with a past medical history of CAD status post CABG and pacemaker placement, .paroxysmal atrial fibrillation, CHF, chronic kidney disease and Dementia. He presented to the emergency department via EMS after being sent by his PCP secondary to concerns of increased confusion and primary care provider's concern that patient is unsafe to return home by himself and has no reported family in this area. Patient arrived to the emerg ency department alert to person and place confused to time and situation. Patient reports having significant memory loss and forgetfulness, but denies having any recent injuries or falls and denies having any complaints including headache, lightheadedness, dizziness, chest pain, palpitations, shortness of breath, abdominal pain, nausea, vomiting, or experiencing any numbness/tingling/weakness/swelling in his extremities. Patient reports having a normal healthy appetite. In the emergency department patient underwent full evaluation. Urinalysis completed 10/19/[address] head completed 10/19/21 negative for acute intercranial process showing mild to moderate diffuse age related cerebral atrophy and chronic small vessel ischemic changes. CBC and CMP also showing no significant abnormalities with CMP revealing baseline renal function with BUN 28, creatinine 1.26, GFR 54. Patient was admitted under our services with consult to case management for possible placement and assistance with providing a safe discharge plan. Hospital Course: Pt has no new complaints today. Pending guardianship, then placement. Physical exam: Gen: awake, alert HEENT: normocephalic, atraumatic, good hearing acuity, moist mucous membranes Resp: good air exchange, breathing comfortably with no accessory muscle use CVS: good distal perfusion x 4, GI: soft, NTTP, ND : no SPT, no CVAT, stevens catheter not present MSK: no pitting edema, no clubbing Neuro: non-focal, moving all extremities Psych: cooperative, euthymic mood Assessment and Plan of Care: Increased memory loss, advancing dementia Inability to care for himself independently Unsafe living situation as patient lives alone, no reported family in area. However patient reports having grandchildren in [place] but unable to contact because he does not remember their phone number. -Patient admitted to observation pending placement for safe discharge plan. -Case management consulted for assistance -Social work consulted for possible assistance and locating family -Provide safe and supportive care and redirection as needed. -ST and psychiatry consult pending for capacity, no capacity -Guardianship in process History of coronary artery disease status post CABG and pacemaker placement Paroxysmal atrial fibrillation Chronic systolic heart failure with previously known EF of 20-25% -Continue daily cardiac medication regimen with Eliquis, furosemide, and Aldactone. CODE STATUS: Full code DVT prophylaxis: Eliquis Family unwilling to take patient home. Will need to wait for guardianship, then placement. Objective - Vital Signs Vital signs: Vital Signs Temp 98.1 F 10/29/21 07:00 Pulse 61 10/29/21 08:00 Resp 16 10/29/21 08:00 BP 106/72 10/29/21 07:00 Pulse Ox 97 10/29/21 07:00 FiO2 Intake & Output 10/28/21 10/29/21 10/29/21 18:59 06:59 18:59 Intake Total 718 Balance 718 Intake: Oral 718 Other: Voiding Method Toilet Toilet # Voids 1 1 - Labs CBC & Chem 7: 10/20/21 11:18 10/20/21 11:18
[2021-10-29] MEDS: traZODone HCL 50 MG TAB PO SCH (22:13)
[2021-10-30] MEDS: FUROSEMIDE 40 MG TAB PO SCH ×2 (08:30→16:18)
[2021-10-30] MEDS: PANTOPRAZOLE 40 MG TABLET PO SCH (08:30)
[2021-10-30] MEDS: SERTRALINE 50 MG TAB PO SCH (08:30)
[2021-10-30] MEDS: SPIRONOLACTONE 25 MG TAB PO SCH (08:30)
[2021-10-30] MEDS: ASPIRIN 81 MG PO SCH (08:30)
[2021-10-30] MEDS: allopurinoL 100 MG TAB PO SCH (08:30)
[2021-10-30] MEDS: APIXABAN 5 MG TAB PO SCH ×2 (08:31→20:57)
--- NOTE | 2021-10-30 09:16 | P.PN ---
Subjective Progress Note Date: 10/30/21 History of Presenting Illness: Patient is a very pleasant 80-year-old male with a past medical history of CAD status post CABG and pacemaker placement, .paroxysmal atrial fibrillation, CHF, chronic kidney disease and Dementia. He presented to the emergency department via EMS after being sent by his PCP secondary to concerns of increased confusion and primary care provider's concern that patient is unsafe to return home by himself and has no reported family in this area. Patient arrived to the emerg ency department alert to person and place confused to time and situation. Patient reports having significant memory loss and forgetfulness, but denies having any recent injuries or falls and denies having any complaints including headache, lightheadedness, dizziness, chest pain, palpitations, shortness of breath, abdominal pain, nausea, vomiting, or experiencing any numbness/tingling/weakness/swelling in his extremities. Patient reports having a normal healthy appetite. In the emergency department patient underwent full evaluation. Urinalysis completed 10/19/[address] head completed 10/19/21 negative for acute intercranial process showing mild to moderate diffuse age related cerebral atrophy and chronic small vessel ischemic changes. CBC and CMP also showing no significant abnormalities with CMP revealing baseline renal function with BUN 28, creatinine 1.26, GFR 54. Patient was admitted under our services with consult to case management for possible placement and assistance with providing a safe discharge plan. Hospital Course: Pt has no new complaints today. Pending guardianship, then placement. Physical exam: Gen: awake, alert HEENT: normocephalic, atraumatic, good hearing acuity, moist mucous membranes Resp: good air exchange, breathing comfortably with no accessory muscle use CVS: good distal perfusion x 4, GI: soft, NTTP, ND : no SPT, no CVAT, stevens catheter not present MSK: no pitting edema, no clubbing Neuro: non-focal, moving all extremities Psych: cooperative, euthymic mood Assessment and Plan of Care: Increased memory loss, advancing dementia Inability to care for himself independently Unsafe living situation as patient lives alone, no reported family in area. However patient reports having grandchildren in [place] but unable to contact because he does not remember their phone number. -Patient admitted to observation pending placement for safe discharge plan. -Case management consulted for assistance -Social work consulted for possible assistance and locating family -Provide safe and supportive care and redirection as needed. -ST and psychiatry consult pending for capacity, no capacity -Guardianship in process History of coronary artery disease status post CABG and pacemaker placement Paroxysmal atrial fibrillation Chronic systolic heart failure with previously known EF of 20-25% -Continue daily cardiac medication regimen with Eliquis, furosemide, and Aldactone. CODE STATUS: Full code DVT prophylaxis: Eliquis Family unwilling to take patient home. Will need to wait for guardianship, then placement. Objective - Vital Signs Vital signs: Vital Signs Temp 97.4 F L 10/30/21 07:00 Pulse 60 10/30/21 07:00 Resp 17 10/30/21 07:00 BP 119/84 10/30/21 07:00 Pulse Ox 97 10/30/21 07:00 FiO2 Intake & Output 10/29/21 10/30/21 10/30/21 18:59 06:59 18:59 Intake Total 240 Balance 240 Intake: Oral 240 Other: Voiding Method Toilet Toilet # Voids 2 1 - Labs CBC & Chem 7: 10/20/21 11:18 10/20/21 11:18
[2021-10-30] MEDS: traZODone HCL 50 MG TAB PO SCH (20:57)
[2021-10-31] MEDS: allopurinoL 100 MG TAB PO SCH (08:49)
[2021-10-31] MEDS: SERTRALINE 50 MG TAB PO SCH (08:49)
[2021-10-31] MEDS: PANTOPRAZOLE 40 MG TABLET PO SCH (08:49)
[2021-10-31] MEDS: FUROSEMIDE 40 MG TAB PO SCH ×2 (08:49→16:19)
[2021-10-31] MEDS: SPIRONOLACTONE 25 MG TAB PO SCH (08:49)
[2021-10-31] MEDS: ASPIRIN 81 MG PO SCH (08:49)
[2021-10-31] MEDS: APIXABAN 5 MG TAB PO SCH ×2 (08:49→21:39)
--- NOTE | 2021-10-31 09:32 | P.PN ---
Subjective Progress Note Date: 10/31/21 History of Presenting Illness: Patient is a very pleasant 80-year-old male with a past medical history of CAD status post CABG and pacemaker placement, .paroxysmal atrial fibrillation, CHF, chronic kidney disease and Dementia. He presented to the emergency department via EMS after being sent by his PCP secondary to concerns of increased confusion and primary care provider's concern that patient is unsafe to return home by himself and has no reported family in this area. Patient arrived to the emerg ency department alert to person and place confused to time and situation. Patient reports having significant memory loss and forgetfulness, but denies having any recent injuries or falls and denies having any complaints including headache, lightheadedness, dizziness, chest pain, palpitations, shortness of breath, abdominal pain, nausea, vomiting, or experiencing any numbness/tingling/weakness/swelling in his extremities. Patient reports having a normal healthy appetite. In the emergency department patient underwent full evaluation. Urinalysis completed 10/19/[address] head completed 10/19/21 negative for acute intercranial process showing mild to moderate diffuse age related cerebral atrophy and chronic small vessel ischemic changes. CBC and CMP also showing no significant abnormalities with CMP revealing baseline renal function with BUN 28, creatinine 1.26, GFR 54. Patient was admitted under our services with consult to case management for possible placement and assistance with providing a safe discharge plan. Hospital Course: Pt has no new complaints today. Pending guardianship, then placement. Physical exam: Gen: awake, alert HEENT: normocephalic, atraumatic, good hearing acuity, moist mucous membranes Resp: good air exchange, breathing comfortably with no accessory muscle use CVS: good distal perfusion x 4, GI: soft, NTTP, ND : no SPT, no CVAT, stevens catheter not present MSK: no pitting edema, no clubbing Neuro: non-focal, moving all extremities Psych: cooperative, euthymic mood Assessment and Plan of Care: Increased memory loss, advancing dementia Inability to care for himself independently Unsafe living situation as patient lives alone, no reported family in area. However patient reports having grandchildren in [place] but unable to contact because he does not remember their phone number. -Patient admitted to observation pending placement for safe discharge plan. -Case management consulted for assistance -Social work consulted for possible assistance and locating family -Provide safe and supportive care and redirection as needed. -ST and psychiatry consult pending for capacity, no capacity -Guardianship in process History of coronary artery disease status post CABG and pacemaker placement Paroxysmal atrial fibrillation Chronic systolic heart failure with previously known EF of 20-25% -Continue daily cardiac medication regimen with Eliquis, furosemide, and Aldactone. CODE STATUS: Full code DVT prophylaxis: Eliquis Family unwilling to take patient home. Will need to wait for guardianship, then placement. Objective - Vital Signs Vital signs: Vital Signs Temp 98 F 10/31/21 07:00 Pulse 58 L 10/31/21 07:00 Resp 17 10/31/21 07:00 BP 88/52 10/31/21 07:00 Pulse Ox 97 10/31/21 07:00 FiO2 Intake & Output 10/30/21 10/31/21 10/31/21 18:59 06:59 18:59 Intake Total 236 Balance 236 Intake: Oral 236 Other: Voiding Method Toilet # Voids 1 1 - Labs CBC & Chem 7: 10/20/21 11:18 10/20/21 11:18
[2021-10-31] MEDS: traZODone HCL 50 MG TAB PO SCH (21:39)
[2021-11-01] MEDS: PANTOPRAZOLE 40 MG TABLET PO SCH (08:37)
[2021-11-01] MEDS: APIXABAN 5 MG TAB PO SCH ×2 (08:37→20:22)
[2021-11-01] MEDS: FUROSEMIDE 40 MG TAB PO SCH ×2 (08:37→17:22)
[2021-11-01] MEDS: ASPIRIN 81 MG PO SCH (08:37)
[2021-11-01] MEDS: allopurinoL 100 MG TAB PO SCH (08:37)
[2021-11-01] MEDS: SERTRALINE 50 MG TAB PO SCH (08:37)
[2021-11-01] MEDS: SPIRONOLACTONE 25 MG TAB PO SCH (08:38)
--- NOTE | 2021-11-01 10:17 | P.PN ---
Subjective Progress Note Date: 11/01/21 History of Presenting Illness: Patient is a very pleasant 80-year-old male with a past medical history of CAD status post CABG and pacemaker placement, .paroxysmal atrial fibrillation, CHF, chronic kidney disease and Dementia. He presented to the emergency department via EMS after being sent by his PCP secondary to concerns of increased confusion and primary care provider's concern that patient is unsafe to return home by himself and has no reported family in this area. Patient arrived to the emerg ency department alert to person and place confused to time and situation. Patient reports having significant memory loss and forgetfulness, but denies having any recent injuries or falls and denies having any complaints including headache, lightheadedness, dizziness, chest pain, palpitations, shortness of breath, abdominal pain, nausea, vomiting, or experiencing any numbness/tingling/weakness/swelling in his extremities. Patient reports having a normal healthy appetite. In the emergency department patient underwent full evaluation. Urinalysis completed 10/19/[address] head completed 10/19/21 negative for acute intercranial process showing mild to moderate diffuse age related cerebral atrophy and chronic small vessel ischemic changes. CBC and CMP also showing no significant abnormalities with CMP revealing baseline renal function with BUN 28, creatinine 1.26, GFR 54. Patient was admitted under our services with consult to case management for possible placement and assistance with providing a safe discharge plan. Hospital Course: Pt has no new complaints today. Pending guardianship, then placement. Physical exam: Gen: awake, alert HEENT: normocephalic, atraumatic, good hearing acuity, moist mucous membranes Resp: good air exchange, breathing comfortably with no accessory muscle use CVS: good distal perfusion x 4, GI: soft, NTTP, ND : no SPT, no CVAT, stevens catheter not present MSK: no pitting edema, no clubbing Neuro: non-focal, moving all extremities Psych: cooperative, euthymic mood Assessment and Plan of Care: Increased memory loss, advancing dementia Inability to care for himself independently Unsafe living situation as patient lives alone, no reported family in area. However patient reports having grandchildren in [place] but unable to contact because he does not remember their phone number. -Patient admitted to observation pending placement for safe discharge plan. -Case management consulted for assistance -Social work consulted for possible assistance and locating family -Provide safe and supportive care and redirection as needed. -ST and psychiatry consult pending for capacity, no capacity -Guardianship in process History of coronary artery disease status post CABG and pacemaker placement Paroxysmal atrial fibrillation Chronic systolic heart failure with previously known EF of 20-25% -Continue daily cardiac medication regimen with Eliquis, furosemide, and Aldactone. CODE STATUS: Full code DVT prophylaxis: Eliquis Family unwilling to take patient home. Will need to wait for guardianship, then placement Objective - Vital Signs Vital signs: Vital Signs Temp 97.8 F 11/01/21 06:53 Pulse 74 11/01/21 06:53 Resp 15 11/01/21 06:53 BP 91/49 11/01/21 06:53 Pulse Ox 98 11/01/21 06:53 FiO2 Intake & Output 10/31/21 11/01/21 11/01/21 18:59 06:59 18:59 Intake Total 118 180 Balance 118 180 Intake: Oral 118 180 Other: Voiding Method Toilet # Voids 1 1 - Labs CBC & Chem 7: 10/20/21 11:18 10/20/21 11:18
[2021-11-01] MEDS: traZODone HCL 50 MG TAB PO SCH (20:22)
[2021-11-02] MEDS: APIXABAN 5 MG TAB PO SCH ×2 (09:20→21:23)
[2021-11-02] MEDS: FUROSEMIDE 40 MG TAB PO SCH ×2 (09:21→19:27)
[2021-11-02] MEDS: allopurinoL 100 MG TAB PO SCH (09:21)
[2021-11-02] MEDS: PANTOPRAZOLE 40 MG TABLET PO SCH (09:21)
[2021-11-02] MEDS: SPIRONOLACTONE 25 MG TAB PO SCH (09:21)
[2021-11-02] MEDS: ASPIRIN 81 MG PO SCH (09:21)
[2021-11-02] MEDS: SERTRALINE 50 MG TAB PO SCH (09:21)
--- NOTE | 2021-11-02 10:32 | P.PN ---
Subjective Progress Note Date: 11/02/21 Hospital course: Patient is a very pleasant 80-year-old male with a past medical history of CAD status post CABG and pacemaker placement, .paroxysmal atrial fibrillation, CHF, chronic kidney disease and Dementia. He presented to the emergency department via EMS after being sent by his PCP secondary to concerns of increased confusion and primary care provider's concern that patient is unsafe to return home by himself and has no reported family in this area. Patient arrived to the emergency department alert to person and place confused to time and situation. Patient reports having significant memory loss and forgetfulness, but denies having any recent injuries or falls and denies having any complaints including headache, lightheadedness, dizziness, chest pain, palpitations, shortness of breath, abdominal pain, nausea, vomiting, or experiencing any numbness/tingling/weakness/swelling in his extremities. Patient reports having a normal healthy appetite. In the emergency department patient underwent full evaluation. Urinalysis completed 10/19/[address] head completed 10/19/21 negative for acute intercranial process showing mild to moderate diffuse age related cerebral atrophy and chronic small vessel ischemic changes. CBC and CMP also showing no significant abnormalities with CMP revealing baseline renal function with BUN 28, creatinine 1.26, GFR 54. Patient was admitted under our services with consult to case management for possible placement and assistance with providing a safe discharge plan. Guardianship hearing was completed on 10/29/21 with state appointed guardian being appointed. Awaiting insurance authorization to determine placement. Physical exam: Vital signs reviewed and stable. General: Nontoxic, no distress and appears stated age. Derm: Skin warm and dry, normal coloration for ethnicity. Head: Atraumatic, normocephalic and symmetric. Eyes: EOMs intact, no lid lag, and anicteric sclera Mouth: no lip lesions, mucus membranes moist Cardiovascular: regular rate and rhythm with normal S1S2, no murmur, positive posterior tibial pulses bilaterally, and cap refill < 2 seconds. Lungs: Respirations even, regular, and unlabored on room air. Lungs CTA bilaterally, no rhonchi, no rales, no wheezing, and no accessory muscle usage. Abdominal: soft, nontender to palpation, no guarding, no appreciable organomegaly Ext: ROM intact. No gross muscle atrophy, no edema, no contractures Neuro: Speech clear, face symmetrical and CN II-XII grossly intact with no noted focal neuro deficits Psych: Alert and oriented to person, place, and confused to time and situation. Patient very pleasant and cooperative with appropriate affect. Assessment and Plan of Care: Increased memory loss, advancing dementia Inability to care for himself independently Unsafe living situation as patient lives alone, no reported family in area. However patient reports having grandchildren in [place] but unable to contact because he does not remember their phone number. -Patient admitted to observation pending placement for safe discharge plan. -Case management/social work following. -Guardianship hearing was completed on 10/29/21 with state appointed guardian being appointed. -Awaiting insurance authorization to determine placement -Provide safe and supportive care and redirection as needed. History of coronary artery disease status post CABG and pacemaker placement Paroxysmal atrial fibrillation Chronic systolic heart failure with previously known EF of 20-25% -Continue daily cardiac medication regimen with Eliquis, furosemide, and Aldactone. CODE STATUS: Full code DVT prophylaxis: Eliquis Discussed with: Patient and RN Anticipated discharge date: Pending insurance authorization Anticipated discharge place: senior living facility A total of 35 minutes was spent on the care of this complex patient more than 50% of the time was spent in counseling and care coordination. I reviewed the documentation as provided by the CHRISTIANNE above, who is the original author of this note. I agree with the documented assessment and plan, with the following changes: none Objective - Vital Signs Vital signs: Vital Signs Temp 98.2 F 11/02/21 07:06 Pulse 61 11/02/21 07:06 Resp 17 11/02/21 07:06 BP 109/63 11/02/21 07:06 Pulse Ox 96 11/02/21 07:06 FiO2 Intake & Output 11/01/21 11/02/21 11/02/21 18:59 06:59 18:59 Intake Total 180 Balance 180 Intake: Oral 180 Other: Voiding Method Toilet Toilet # Voids 1 2 - Labs CBC & Chem 7: 10/20/21 11:18 10/20/21 11:18
[2021-11-02] MEDS: traZODone HCL 50 MG TAB PO SCH (21:23)
--- NOTE | 2021-11-03 09:41 | P.PN ---
Subjective Progress Note Date: 11/03/21 Hospital course: Patient is a very pleasant 80-year-old male with a past medical history of CAD status post CABG and pacemaker placement, .paroxysmal atrial fibrillation, CHF, chronic kidney disease and Dementia. He presented to the emergency department via EMS after being sent by his PCP secondary to concerns of increased confusion and primary care provider's concern that patient is unsafe to return home by himself and has no reported family in this area. Patient arrived to the emergency department alert to person and place confused to time and situation. Patient reports having significant memory loss and forgetfulness, but denies having any recent injuries or falls and denies having any complaints including headache, lightheadedness, dizziness, chest pain, palpitations, shortness of breath, abdominal pain, nausea, vomiting, or experiencing any numbness/tingling/weakness/swelling in his extremities. Patient reports having a normal healthy appetite. In the emergency department patient underwent full evaluation. Urinalysis completed 10/19/[address] head completed 10/19/21 negative for acute intercranial process showing mild to moderate diffuse age related cerebral atrophy and chronic small vessel ischemic changes. CBC and CMP also showing no significant abnormalities with CMP revealing baseline renal function with BUN 28, creatinine 1.26, GFR 54. Patient was admitted under our services with consult to case management for possible placement and assistance with providing a safe discharge plan. Guardianship hearing was completed on 10/29/21 with state appointed guardian being appointed. Awaiting insurance authorization to determine placement. Physical exam: Vital signs reviewed and stable. patient seen and fully evaluated at bedside and denies having any complaints this morning. General: Nontoxic, no distress and appears stated age. Derm: Skin warm and dry, normal coloration for ethnicity. Head: Atraumatic, normocephalic and symmetric. Eyes: EOMs intact, no lid lag, and anicteric sclera Mouth: no lip lesions, mucus membranes moist Cardiovascular: regular rate and rhythm with normal S1S2, no murmur, positive posterior tibial pulses bilaterally, and cap refill < 2 seconds. Lungs: Respirations even, regular, and unlabored on room air. Lungs CTA bilaterally, no rhonchi, no rales, no wheezing, and no accessory muscle usage. Abdominal: soft, nontender to palpation, no guarding, no appreciable organomegaly Ext: ROM intact. No gross muscle atrophy, no edema, no contractures Neuro: Speech clear, face symmetrical and CN II-XII grossly intact with no noted focal neuro deficits Psych: Alert and oriented to person, place, and confused to time and situation. Patient very pleasant and cooperative with appropriate affect. Assessment and Plan of Care: Increased memory loss, advancing dementia Inability to care for himself independently Unsafe living situation as patient lives alone, no reported family in area. Brad arriaga patient reports having grandchildren in [place] but unable to contact because he does not remember their phone number. -Patient admitted to observation pending placement for safe discharge plan. -Case management/social work following. -Guardianship hearing was completed on 10/29/21 with state appointed guardian being appointed. -Awaiting insurance authorization to determine placement -Provide safe and supportive care and redirection as needed. History of coronary artery disease status post CABG and pacemaker placement Paroxysmal atrial fibrillation Chronic systolic heart failure with previously known EF of 20-25% -Continue daily cardiac medication regimen with Eliquis, furosemide, and Aldactone. CODE STATUS: Full code DVT prophylaxis: Eliquis Discussed with: Patient and RN Anticipated discharge date: Pending insurance authorization Anticipated discharge place: group home facility A total of 31 minutes was spent on the care of this complex patient more than 50% of the time was spent in counseling and care coordination. I reviewed the documentation as provided by the CHRISTIANNE above, who is the original author of this note. I agree with the documented assessment and plan, with the following changes: none Objective - Vital Signs Vital signs: Vital Signs Temp 97.6 F 11/03/21 07:00 Pulse 59 L 11/03/21 07:00 Resp 18 11/03/21 07:00 BP 108/68 11/03/21 07:00 Pulse Ox 96 11/03/21 07:00 FiO2 Intake & Output 11/02/21 11/03/21 11/03/21 18:59 06:59 18:59 Other: Voiding Method Toilet # Voids 1 3 1 - Labs CBC & Chem 7: 10/20/21 11:18 10/20/21 11:18
[2021-11-03] MEDS: FUROSEMIDE 40 MG TAB PO SCH ×2 (09:51→16:03)
[2021-11-03] MEDS: SPIRONOLACTONE 25 MG TAB PO SCH (09:52)
[2021-11-03] MEDS: ASPIRIN 81 MG PO SCH (09:52)
[2021-11-03] MEDS: allopurinoL 100 MG TAB PO SCH (09:52)
[2021-11-03] MEDS: SERTRALINE 50 MG TAB PO SCH (09:52)
[2021-11-03] MEDS: APIXABAN 5 MG TAB PO SCH ×2 (09:53→20:34)
[2021-11-03] MEDS: PANTOPRAZOLE 40 MG TABLET PO SCH (09:53)
[2021-11-03] MEDS: traZODone HCL 50 MG TAB PO SCH (20:34)
[2021-11-04] MEDS: allopurinoL 100 MG TAB PO SCH (07:22)
[2021-11-04] MEDS: APIXABAN 5 MG TAB PO SCH ×2 (07:22→21:52)
[2021-11-04] MEDS: SPIRONOLACTONE 25 MG TAB PO SCH (07:23)
[2021-11-04] MEDS: PANTOPRAZOLE 40 MG TABLET PO SCH (07:23)
[2021-11-04] MEDS: SERTRALINE 50 MG TAB PO SCH (07:23)
[2021-11-04] MEDS: FUROSEMIDE 40 MG TAB PO SCH ×2 (07:23→15:08)
[2021-11-04] MEDS: ASPIRIN 81 MG PO SCH (07:23)
--- NOTE | 2021-11-04 15:39 | P.PN ---
Subjective Progress Note Date: 11/04/21 Hospital course: Patient is a very pleasant 80-year-old male with a past medical history of CAD status post CABG and pacemaker placement, .paroxysmal atrial fibrillation, CHF, chronic kidney disease and Dementia. He presented to the emergency department via EMS after being sent by his PCP secondary to concerns of increased confusion and primary care provider's concern that patient is unsafe to return home by himself and has no reported family in this area. Patient arrived to the emergency department alert to person and place confused to time and situation. Patient reports having significant memory loss and forgetfulness, but denies having any recent injuries or falls and denies having any complaints including headache, lightheadedness, dizziness, chest pain, palpitations, shortness of breath, abdominal pain, nausea, vomiting, or experiencing any numbness/tingling/weakness/swelling in his extremities. Patient reports having a normal healthy appetite. In the emergency department patient underwent full evaluation. Urinalysis completed 10/19/[address] head completed 10/19/21 negative for acute intercranial process showing mild to moderate diffuse age related cerebral atrophy and chronic small vessel ischemic changes. CBC and CMP also showing no significant abnormalities with CMP revealing baseline renal function with BUN 28, creatinine 1.26, GFR 54. Patient was admitted under our services with consult to case management for possible placement and assistance with providing a safe discharge plan. Guardianship hearing was completed on 10/29/21 with state appointed guardian being appointed. Awaiting insurance authorization to determine placement. Physical exam: Vital signs reviewed and stable. Patient seen and fully evaluated at bedside, he was getting dressed after shower. He denied having any complaints this morning. Continue to await placement arrangements to be made. General: Nontoxic, no distress and appears stated age. Derm: Skin warm and dry, normal coloration for ethnicity. Head: Atraumatic, normocephalic and symmetric. Eyes: EOMs intact, no lid lag, and anicteric sclera Mouth: no lip lesions, mucus membranes moist Cardiovascular: regular rate and rhythm with normal S1S2, no murmur, positive posterior tibial pulses bilaterally, and cap refill < 2 seconds. Lungs: Respirations even, regular, and unlabored on room air. Lungs CTA bilaterally, no rhonchi, no rales, no wheezing, and no accessory muscle usage. Abdominal: soft, nontender to palpation, no guarding, no appreciable organomegaly Ext: ROM intact. No gross muscle atrophy, no edema, no contractures Neuro: Speech clear, face symmetrical and CN II-XII grossly intact with no noted focal neuro deficits Psych: Alert and oriented to person, place, and confused to time and situation. Patient very pleasant and cooperative with appropriate affect. Assessment and Plan of Care: Increased memory loss, advancing dementia Inability to care for himself independently Unsafe living situation as patient lives alone, no reported family in area. However patient reports having grandchildren in [place] but unable to contact because he does not remember their phone number. -Patient admitted to observation pending placement for safe discharge plan. -Case management/social work following. -Guardianship hearing was completed on 10/29/21 with state appointed guardian being appointed. -Awaiting insurance authorization to determine placement -Provide safe and supportive care and redirection as needed. History of coronary artery disease status post CABG and pacemaker placement Paroxysmal atrial fibrillation Chronic systolic heart failure with previously known EF of 20-25% -Continue daily cardiac medication regimen with Eliquis, furosemide, and Aldactone. CODE STATUS: Full code DVT prophylaxis: Eliquis Discussed with: Patient and RN Anticipated discharge date: Pending insurance authorization Anticipated discharge place: [facility] A total of 29 minutes was spent on the care of this complex patient more than 50% of the time was spent in counseling and care coordination. I reviewed the documentation as provided by the CHRISTIANNE above, who is the original author of this note. I agree with the documented assessment and plan, with the following changes: none Objective - Vital Signs Vital signs: Vital Signs Temp 97.8 F 11/04/21 07:00 Pulse 62 11/04/21 07:00 Resp 18 11/04/21 07:00 BP 113/75 11/04/21 07:00 Pulse Ox 99 11/04/21 07:00 FiO2 Intake & Output 11/03/21 11/04/21 11/04/21 18:59 06:59 18:59 Other: Voiding Method Toilet Toilet # Voids 1 1 - Labs CBC & Chem 7: 10/20/21 11:18 10/20/21 11:18
[2021-11-04] MEDS: traZODone HCL 50 MG TAB PO SCH (21:53)
[2021-11-05] MEDS: allopurinoL 100 MG TAB PO SCH (08:08)
[2021-11-05] MEDS: SERTRALINE 50 MG TAB PO SCH (08:08)
[2021-11-05] MEDS: FUROSEMIDE 40 MG TAB PO SCH ×2 (08:08→17:30)
[2021-11-05] MEDS: APIXABAN 5 MG TAB PO SCH ×2 (08:08→21:55)
[2021-11-05] MEDS: ASPIRIN 81 MG PO SCH (08:08)
[2021-11-05] MEDS: SPIRONOLACTONE 25 MG TAB PO SCH (08:08)
[2021-11-05] MEDS: PANTOPRAZOLE 40 MG TABLET PO SCH (08:08)
--- NOTE | 2021-11-05 17:30 | P.PN ---
Subjective Progress Note Date: 11/05/21 Hospital course: Patient is a very pleasant 80-year-old male with a past medical history of CAD status post CABG and pacemaker placement, .paroxysmal atrial fibrillation, CHF, chronic kidney disease and Dementia. He presented to the emergency department via EMS after being sent by his PCP secondary to concerns of increased confusion and primary care provider's concern that patient is unsafe to return home by himself and has no reported family in this area. Patient arrived to the emergency department alert to person and place confused to time and situation. Patient reports having significant memory loss and forgetfulness, but denies having any recent injuries or falls and denies having any complaints including headache, lightheadedness, dizziness, chest pain, palpitations, shortness of breath, abdominal pain, nausea, vomiting, or experiencing any numbness/tingling/weakness/swelling in his extremities. Patient reports having a normal healthy appetite. In the emergency department patient underwent full evaluation. Urinalysis completed 10/19/[address] head completed 10/19/21 negative for acute intercranial process showing mild to moderate diffuse age related cerebral atrophy and chronic small vessel ischemic changes. CBC and CMP also showing no significant abnormalities with CMP revealing baseline renal function with BUN 28, creatinine 1.26, GFR 54. Patient was admitted under our services with consult to case management for possible placement and assistance with providing a safe discharge plan. Guardianship hearing was completed on 10/29/21 with state appointed guardian being appointed. Awaiting insurance authorization to determine placement. Per case management Medicare application has been sent by guardian and currently pending approval. Referrals have been sent to residential facilities and pending acceptance. Physical exam: Patient seen and fully evaluated at bedside this morning. He was resting comfortably in bed and easily awoken via verbal stimuli. He denied having any complaints this morning. Continue to await placement arrangements to be made. Vital signs reviewed and stable. General: Nontoxic, no distress and appears stated age. Derm: Skin warm and dry, normal coloration for ethnicity. Head: Atraumatic, normocephalic and symmetric. Eyes: EOMs intact, no lid lag, and anicteric sclera Mouth: no lip lesions, mucus membranes moist Cardiovascular: regular rate and rhythm with normal S1S2, no murmur, positive posterior tibial pulses bilaterally, and cap refill < 2 seconds. Lungs: Respirations even, regular, and unlabored on room air. Lungs CTA bilaterally, no rhonchi, no rales, no wheezing, and no accessory muscle usage. Abdominal: soft, nontender to palpation, no guarding, no appreciable orga nomegaly Ext: ROM intact. No gross muscle atrophy, no edema, no contractures Neuro: Speech clear, face symmetrical and CN II-XII grossly intact with no noted focal neuro deficits Psych: Alert and oriented to person, place, and confused to time and situation. Patient very pleasant and cooperative with appropriate affect. Assessment and Plan of Care: Increased memory loss, advancing dementia Inability to care for himself independently Unsafe living situation as patient lives alone, no reported family in area. However patient reports having grandchildren in [place] but unable to contact because he does not remember their phone number. -Patient admitted to observation pending placement for safe discharge plan. -Case management/social work following. -Guardianship hearing was completed on 10/29/21 with state appointed guardian being appointed. -Awaiting insurance authorization to determine placement -Provide safe and supportive care and redirection as needed. History of coronary artery disease status post CABG and pacemaker placement Paroxysmal atrial fibrillation Chronic systolic heart failure with previously known EF of 20-25% -Continue daily cardiac medication regimen with Eliquis, furosemide, and Aldactone. CODE STATUS: Full code DVT prophylaxis: Eliquis Discussed with: Patient and RN Anticipated discharge date: Pending insurance authorization Anticipated discharge place: residential facility A total of 30 minutes was spent on the care of this complex patient more than 50% of the time was spent in counseling and care coordination. I reviewed the documentation as provided by the CHRISTIANNE above, who is the original author of this note. I agree with the documented assessment and plan, with the following changes: none Objective - Vital Signs Vital signs: Vital Signs Temp 97.4 F L 11/05/21 01:55 Pulse 60 11/05/21 01:55 Resp 16 11/05/21 01:55 BP 116/66 11/05/21 01:55 Pulse Ox 97 11/05/21 01:55 FiO2 Intake & Output 11/04/21 11/05/21 11/05/21 18:59 06:59 18:59 Other: Voiding Method Toilet Toilet # Voids 2 3 - Labs CBC & Chem 7: 10/20/21 11:18 10/20/21 11:18
[2021-11-05] MEDS: traZODone HCL 50 MG TAB PO SCH (21:55)
[2021-11-06] MEDS: ASPIRIN 81 MG PO SCH (07:46)
[2021-11-06] MEDS: FUROSEMIDE 40 MG TAB PO SCH ×2 (07:46→16:11)
[2021-11-06] MEDS: allopurinoL 100 MG TAB PO SCH (07:46)
[2021-11-06] MEDS: APIXABAN 5 MG TAB PO SCH ×2 (07:46→19:23)
[2021-11-06] MEDS: SPIRONOLACTONE 25 MG TAB PO SCH (07:47)
[2021-11-06] MEDS: PANTOPRAZOLE 40 MG TABLET PO SCH (07:47)
[2021-11-06] MEDS: SERTRALINE 50 MG TAB PO SCH (07:49)
--- NOTE | 2021-11-06 18:13 | P.PN ---
Subjective Progress Note Date: 11/06/21 Hospital course: Patient is a very pleasant 80-year-old male with a past medical history of CAD status post CABG and pacemaker placement, .paroxysmal atrial fibrillation, CHF, chronic kidney disease and Dementia. He presented to the emergency department via EMS after being sent by his PCP secondary to concerns of increased confusion and primary care provider's concern that patient is unsafe to return home by himself and has no reported family in this area. Patient arrived to the emergency department alert to person and place confused to time and situation. Patient reports having significant memory loss and forgetfulness, but denies having any recent injuries or falls and denies having any complaints including headache, lightheadedness, dizziness, chest pain, palpitations, shortness of breath, abdominal pain, nausea, vomiting, or experiencing any numbness/tingling/weakness/swelling in his extremities. Patient reports having a normal healthy appetite. In the emergency department patient underwent full evaluation. Urinalysis completed 10/19/[address] head completed 10/19/21 negative for acute intercranial process showing mild to moderate diffuse age related cerebral atrophy and chronic small vessel ischemic changes. CBC and CMP also showing no significant abnormalities with CMP revealing baseline renal function with BUN 28, creatinine 1.26, GFR 54. Patient was admitted under our services with consult to case management for possible placement and assistance with providing a safe discharge plan. Guardianship hearing was completed on 10/29/21 with state appointed guardian being appointed. Awaiting insurance authorization to determine placement. Per case management Medicare application has been sent by guardian and currently pending approval. Referrals have been sent to prison facilities and pending acceptance. Physical exam: Patient seen and fully evaluated at bedside this morning. He was sleeping in bed and easily awoken via verbal stimuli. He denied having any complaints this morning and reports that he has been ambulating in room without difficulties. Patient remains confused to time and situation and does require frequent reorientation. He is medically stable for discharge once arrangements have been made and he has been accepted to a prison facility. Continue to await placement arrangements to be made for safe discharge. Vital signs reviewed and stable. General: Nontoxic, no distress and appears stated age. Derm: Skin warm and dry, normal coloration for ethnicity. Head: Atraumatic, normocephalic and symmetric. Eyes: EOMs intact, no lid lag, and anicteric sclera Mouth: no lip lesions, mucus membranes moist Cardiovascular: regular rate and rhythm with normal S1S2, no murmur, positive posterior tibial pulses bilaterally, and cap refill < 2 seconds. Lungs: Respirations even, regular, and unlabored on room air. Lungs CTA bilaterally, no rhonchi, no rales, no wheezing, and no accessory muscle usage. Abdominal: soft, nontender to palpation, no guarding, no appreciable organomega ly Ext: ROM intact. No gross muscle atrophy, no edema, no contractures Neuro: Speech clear, face symmetrical and CN II-XII grossly intact with no noted focal neuro deficits Psych: Alert and oriented to person, place, and confused to time and situation. Patient very pleasant and cooperative with appropriate affect. Assessment and Plan of Care: Increased memory loss, advancing dementia Inability to care for himself independently Unsafe living situation as patient lives alone, no reported family in area. However patient reports having grandchildren in [place] but unable to contact because he does not remember their phone number. -Patient admitted to observation pending placement for safe discharge plan. -Case management/social work following. -Guardianship hearing was completed on 10/29/21 with state appointed guardian being appointed. -Awaiting insurance authorization to determine placement -Provide safe and supportive care and redirection as needed. History of coronary artery disease status post CABG and pacemaker placement Paroxysmal atrial fibrillation Chronic systolic heart failure with previously known EF of 20-25% -Continue daily cardiac medication regimen with Eliquis, furosemide, and Aldactone. CODE STATUS: Full code DVT prophylaxis: Eliquis Discussed with: Patient and RN Anticipated discharge date: Pending insurance authorization Anticipated discharge place: prison facility A total of 28 minutes was spent on the care of this complex patient more than 50% of the time was spent in counseling and care coordination. I reviewed the documentation as provided by the CHRISTIANNE above, who is the original author of this note. I agree with the documented assessment and plan, with the following changes: none Objective - Vital Signs Vital signs: Vital Signs Temp 97.6 F 11/06/21 07:00 Pulse 56 L 11/06/21 07:00 Resp 18 11/06/21 07:00 BP 112/70 11/06/21 07:00 Pulse Ox 95 11/06/21 07:00 FiO2 Intake & Output 11/05/21 11/06/21 11/06/21 18:59 06:59 18:59 Output Total 2 Balance -2 Output: Urine 2 Other: Voiding Method Toilet # Voids 1 1 - Labs CBC & Chem 7: 10/20/21 11:18 10/20/21 11:18
[2021-11-06] MEDS: traZODone HCL 50 MG TAB PO SCH (19:23)
[2021-11-07] MEDS: FUROSEMIDE 40 MG TAB PO SCH ×2 (08:33→16:18)
[2021-11-07] MEDS: ASPIRIN 81 MG PO SCH (08:33)
[2021-11-07] MEDS: PANTOPRAZOLE 40 MG TABLET PO SCH (08:33)
[2021-11-07] MEDS: APIXABAN 5 MG TAB PO SCH ×2 (08:33→20:01)
[2021-11-07] MEDS: SPIRONOLACTONE 25 MG TAB PO SCH (08:33)
[2021-11-07] MEDS: allopurinoL 100 MG TAB PO SCH (08:33)
[2021-11-07] MEDS: SERTRALINE 50 MG TAB PO SCH (08:33)
--- NOTE | 2021-11-07 11:02 | P.PN ---
Subjective Progress Note Date: 11/07/21 Hospital course: Patient is a very pleasant 80-year-old male with a past medical history of CAD status post CABG and pacemaker placement, .paroxysmal atrial fibrillation, CHF, chronic kidney disease and Dementia. He presented to the emergency department via EMS after being sent by his PCP secondary to concerns of increased confusion and primary care provider's concern that patient is unsafe to return home by himself and has no reported family in this area. Patient arrived to the emergency department alert to person and place confused to time and situation. Patient reports having significant memory loss and forgetfulness, but denies having any recent injuries or falls and denies having any complaints including headache, lightheadedness, dizziness, chest pain, palpitations, shortness of breath, abdominal pain, nausea, vomiting, or experiencing any numbness/tingling/weakness/swelling in his extremities. Patient reports having a normal healthy appetite. In the emergency department patient underwent full evaluation. Urinalysis completed 10/19/[address] head completed 10/19/21 negative for acute intercranial process showing mild to moderate diffuse age related cerebral atrophy and chronic small vessel ischemic changes. CBC and CMP also showing no significant abnormalities with CMP revealing baseline renal function with BUN 28, creatinine 1.26, GFR 54. Patient was admitted under our services with consult to case management for possible placement and assistance with providing a safe discharge plan. Guardianship hearing was completed on 10/29/21 with state appointed guardian being appointed. Awaiting insurance authorization to determine placement. Per case management Medicare application has been sent by guardian and currently pending approval. Referrals have been sent to care home facilities and pending acceptance. Physical exam: Patient seen and fully evaluated at bedside this morning. He was sleeping in bed and easily awoken via verbal stimuli. Patient did seem a little discouraged this morning and stated he just feels tired today because he did not sleep well last night. He denied having any pain or complaints. He is medically stable for discharge once arrangements have been made and he has been accepted to a care home facility. Continue to await placement arrangements to be made for safe discharge. Vital signs reviewed and stable. General: Nontoxic, no distress and appears stated age. Derm: Skin warm and dry, normal coloration for ethnicity. Head: Atraumatic, normocephalic and symmetric. Eyes: EOMs intact, no lid lag, and anicteric sclera Mouth: no lip lesions, mucus membranes moist Cardiovascular: regular rate and rhythm with normal S1S2, no murmur, positive posterior tibial pulses bilaterally, and cap refill < 2 seconds. Lungs: Respirations even, regular, and unlabored on room air. Lungs CTA bilaterally, no rhonchi, no rales, no wheezing, and no accessory muscle usage. Abdominal: soft, nontender to palpation, no guarding, no appreciable organomegaly Ext: ROM intact. No gross muscle atrophy, no edema, no contractures Neuro: Speech clear, face symmetrical and CN II-XII grossly intact with no noted focal neuro deficits Psych: Alert and oriented to person, place, and confused to time and situation. Patient very pleasant and cooperative with appropriate affect. Assessment and Plan of Care: Increased memory loss, advancing dementia Inability to care for himself independently Unsafe living situation as patient lives alone, no reported family in area. However patient reports having grandchildren in [place] but unable to contact because he does not remember their phone number. -Patient admitted to observation pending placement for safe discharge plan. -Case management/social work following. -Guardianship hearing was completed on 10/29/21 with state appointed guardian being appointed. -Awaiting insurance authorization to determine placement -Provide safe and supportive care and redirection as needed. History of coronary artery disease status post CABG and pacemaker placement Paroxysmal atrial fibrillation Chronic systolic heart failure with previously known EF of 20-25% -Continue daily cardiac medication regimen with Eliquis, furosemide, and Aldactone. CODE STATUS: Full code DVT prophylaxis: Eliquis Discussed with: Patient and RN Anticipated discharge date: Pending insurance authorization Anticipated discharge place: care home facility A total of 30 minutes was spent on the care of this complex patient more than 50% of the time was spent in counseling and care coordination. Objective - Vital Signs Vital signs: Vital Signs Temp 98.1 F 11/07/21 07:00 Pulse 58 L 11/07/21 08:00 Resp 16 11/07/21 08:00 BP 102/67 11/07/21 07:00 Pulse Ox 96 11/07/21 07:00 FiO2 Intake & Output 11/06/21 11/07/21 11/07/21 18:59 06:59 18:59 Intake Total 480 240 Balance 480 240 Intake: Oral 480 240 Other: Voiding Method Toilet Toilet Toilet # Voids 2 2 - Labs CBC & Chem 7: 10/20/21 11:18 10/20/21 11:18
[2021-11-07] MEDS: traZODone HCL 50 MG TAB PO SCH (20:01)
[2021-11-08] MEDS: APIXABAN 5 MG TAB PO SCH ×2 (09:02→20:40)
[2021-11-08] MEDS: ASPIRIN 81 MG PO SCH (09:02)
[2021-11-08] MEDS: PANTOPRAZOLE 40 MG TABLET PO SCH (09:02)
[2021-11-08] MEDS: SERTRALINE 50 MG TAB PO SCH (09:02)
[2021-11-08] MEDS: FUROSEMIDE 40 MG TAB PO SCH ×2 (09:03→15:39)
[2021-11-08] MEDS: allopurinoL 100 MG TAB PO SCH (09:03)
[2021-11-08] MEDS: SPIRONOLACTONE 25 MG TAB PO SCH (09:03)
--- NOTE | 2021-11-08 16:26 | P.PN ---
Subjective Progress Note Date: 11/08/21 Hospital course: Patient is a very pleasant 80-year-old male with a past medical history of CAD status post CABG and pacemaker placement, .paroxysmal atrial fibrillation, CHF, chronic kidney disease and Dementia. He presented to the emergency department via EMS after being sent by his PCP secondary to concerns of increased confusion and primary care provider's concern that patient is unsafe to return home by himself and has no reported family in this area. Patient arrived to the emergency department alert to person and place confused to time and situation. Patient reports having significant memory loss and forgetfulness, but denies having any recent injuries or falls and denies having any complaints including headache, lightheadedness, dizziness, chest pain, palpitations, shortness of breath, abdominal pain, nausea, vomiting, or experiencing any numbness/tingling/weakness/swelling in his extremities. Patient reports having a normal healthy appetite. In the emergency department patient underwent full evaluation. Urinalysis completed 10/19/[address] head completed 10/19/21 negative for acute intercranial process showing mild to moderate diffuse age related cerebral atrophy and chronic small vessel ischemic changes. CBC and CMP also showing no significant abnormalities with CMP revealing baseline renal function with BUN 28, creatinine 1.26, GFR 54. Patient was admitted under our services with consult to case management for possible placement and assistance with providing a safe discharge plan. Guardianship hearing was completed on 10/29/21 with state appointed guardian being appointed. Awaiting insurance authorization to determine placement. Per case management Medicare application has been sent by guardian and currently pending approval. Referrals have been sent to detention facilities and pending acceptance. Physical exam: Patient seen and fully evaluated at bedside this morning. He was again sleeping in bed and easily awoken via verbal stimuli. Pt states that he is bored, but denies any complaints. He is medically stable for discharge once arrangements have been made and he has been accepted to a detention facility. Continue to await placement arrangements to be made for safe discharge. Vital signs reviewed and stable. General: Nontoxic, no distress and appears stated age. Derm: Skin warm and dry, normal coloration for ethnicity. Head: Atraumatic, normocephalic and symmetric. Eyes: EOMs intact, no lid lag, and anicteric sclera Mouth: no lip lesions, mucus membranes moist Cardiovascular: regular rate and rhythm with normal S1S2, no murmur, positive posterior tibial pulses bilaterally, and cap refill < 2 seconds. Lungs: Respirations even, regular, and unlabored on room air. Lungs CTA bilat erally, no rhonchi, no rales, no wheezing, and no accessory muscle usage. Abdominal: soft, nontender to palpation, no guarding, no appreciable organomegaly Ext: ROM intact. No gross muscle atrophy, no edema, no contractures Neuro: Speech clear, face symmetrical and CN II-XII grossly intact with no noted focal neuro deficits Psych: Alert and oriented to person, place, and confused to time and situation. Patient very pleasant and cooperative with appropriate affect. Assessment and Plan of Care: Increased memory loss, advancing dementia Inability to care for himself independently Unsafe living situation as patient lives alone, no reported family in area. However patient reports having grandchildren in [place] but unable to contact because he does not remember their phone number. -Patient admitted to observation pending placement for safe discharge plan. -Case management/social work following. -Guardianship hearing was completed on 10/29/21 with state appointed guardian being appointed. -Awaiting insurance authorization to determine placement -Provide safe and supportive care and redirection as needed. History of coronary artery disease status post CABG and pacemaker placement Paroxysmal atrial fibrillation Chronic systolic heart failure with previously known EF of 20-25% -Continue daily cardiac medication regimen with Eliquis, furosemide, and Aldactone. CODE STATUS: Full code DVT prophylaxis: Eliquis Discussed with: Patient and RN Anticipated discharge date: Pending insurance authorization Anticipated discharge place: detention facility A total of 30 minutes was spent on the care of this complex patient more than 50% of the time was spent in counseling and care coordination. Objective - Vital Signs Vital signs: Vital Signs Temp 97.7 F 11/08/21 07:00 Pulse 60 11/08/21 07:00 Resp 16 11/08/21 07:00 BP 106/74 11/08/21 07:00 Pulse Ox 97 11/08/21 07:00 FiO2 Intake & Output 11/07/21 11/08/21 11/08/21 18:59 06:59 18:59 Intake Total 358 Balance 358 Intake: Oral 358 Other: Voiding Method Toilet Toilet # Voids 2 2 - Labs CBC & Chem 7: 10/20/21 11:18 10/20/21 11:18
[2021-11-08] MEDS: traZODone HCL 50 MG TAB PO SCH (20:40)
[2021-11-09 06:28] VITALS: RESP 16
[2021-11-09] MEDS: SERTRALINE 50 MG TAB PO SCH (09:30)
[2021-11-09] MEDS: allopurinoL 100 MG TAB PO SCH (09:30)
[2021-11-09] MEDS: PANTOPRAZOLE 40 MG TABLET PO SCH (09:30)
[2021-11-09] MEDS: SPIRONOLACTONE 25 MG TAB PO SCH (09:31)
[2021-11-09] MEDS: APIXABAN 5 MG TAB PO SCH (09:31)
[2021-11-09] MEDS: ASPIRIN 81 MG PO SCH (09:31)
[2021-11-09] MEDS: FUROSEMIDE 40 MG TAB PO SCH (09:31)
--- NOTE | 2021-11-09 11:28 | P.DS ---
Providers Date of admission: 10/20/21 13:06 Expected date of discharge: 11/09/21 Attending physician: Hermelinda Marie DO Consults: 10/21/21 09:08 Consult Physician Routine Consulting Provider: Arden Rodriguez Consult Reason/Comments: cognitive, decision making abilities Do you want consulting provider notified?: Yes Primary care physician: Juan Pablo Daly Hospital Course: Discharge Diagnosis: Increased memory loss, advancing dementia Inability to care for himself independently Unsafe living situation as patient lives alone History of coronary artery disease status post CABG and pacemaker placement. Continue daily cardiac medication regimen with Eliquis, furosemide, and Aldactone. Paroxysmal atrial fibrillation. Continue anticoagulation with Eliquis. Chronic systolic heart failure with previously known EF of 20-25%. Hospital Course: Patient is a very pleasant 80-year-old male with a past medical history of CAD status post CABG and pacemaker placement, .paroxysmal atrial fibrillation, CHF, chronic kidney disease and Dementia. He presented to the emergency department via EMS after being sent by his PCP secondary to concerns of increased confusion and primary care provider's concern that patient is unsafe to return home by himself and has no reported family in this area. Patient arrived to the emergency department alert to person and place confused to time and situation. Patient reports having significant memory loss and forgetfulness, but denies having any recent injuries or falls and denies having any complaints including headache, lightheadedness, dizziness, chest pain, palpitations, shortness of breath, abdominal pain, nausea, vomiting, or experiencing any numbness/tingling/weakness/swelling in his extremities. Patient reports having a normal healthy appetite. In the emergency department patient underwent full evaluation. Urinalysis completed 10/19/[address] head completed 10/19/21 negative for acute intercranial process showing mild to moderate diffuse age related cerebral atrophy and chronic small vessel ischemic changes. CBC and CMP also showing no significant abnormalities with CMP revealing baseline renal function with BUN 28, creatinine 1.26, GFR 54. Patient was admitted under our services with consult to case management for possible placement and assistance with providing a safe discharge plan. Guardianship hearing was completed on 10/29/21 with state appointed guardian being appointed. Awaiting insurance authorization to determine placement. Per case management Medicare application has been sent by guardian and currently pending approval. Referrals were sent to shelter facilities and placement has been obtained. Pt denies any complaints and remains pleasant and cooperative. He is medically stable for discharge to shelter facility at this time.. Physical exam: Vital signs reviewed and stable. General: Nontoxic, no distress and appears stated age. Derm: Skin warm and dry, normal coloration for ethnicity. Head: Atraumatic, normocephalic and symmetric. Eyes: EOMs intact, no lid lag, and anicteric sclera Mouth: no lip lesions, mucus membranes moist Cardiovascular: regular rate and rhythm with normal S1S2, no murmur, positive posterior tibial pulses bilaterally, and cap refill < 2 seconds. Lungs: Respirations even, regular, and unlabored on room air. Lungs CTA bilaterally, no rhonchi, no rales, no wheezing, and no accessory muscle usage. Abdominal: soft, nontender to palpation, no guarding, no appreciable organomegaly Ext: ROM intact. No gross muscle atrophy, no edema, no contractures Neuro: Speech clear, face symmetrical and CN II-XII grossly intact with no noted focal neuro deficits Psych: Alert and oriented to person, place, and confused to time and situation. Patient very pleasant and cooperative with appropriate affect. A total of 34 minutes of time were spent preparing this complex discharge summary. Pt was discharged on 11/09/21 at 11:27 AM. Patient Condition at Discharge: Stable Plan - Discharge Summary Discharge Rx Participant: No New Discharge Prescriptions: New Aspirin 81 mg PO DAILY tab Melatonin 3 mg PO HS PRN tab PRN Reason: Insomnia Continue Omeprazole 20 mg PO DAILY Apixaban [Eliquis] 5 mg PO BID #60 tab allopurinoL [Zyloprim] 100 mg PO DAILY Furosemide [Lasix] 40 mg PO BID Spironolactone 25 mg PO DAILY Sertraline HCl [Zoloft] 50 mg PO DAILY Potassium Chloride ER [K-Dur 20] 20 meq PO HS traZODone HCL [Desyrel] 25 mg PO HS Discharge Medication List Omeprazole 20 mg PO DAILY 02/03/19 [History] Apixaban [Eliquis] 5 mg PO BID #60 tab 02/07/19 [Rx] allopurinoL [Zyloprim] 100 mg PO DAILY 01/28/20 [History] Furosemide [Lasix] 40 mg PO BID 05/17/21 [History] Potassium Chloride ER [K-Dur 20] 20 meq PO HS 05/17/21 [History] Sertraline HCl [Zoloft] 50 mg PO DAILY 10/19/21 [History] Spironolactone 25 mg PO DAILY 10/19/21 [History] traZODone HCL [Desyrel] 25 mg PO HS 10/19/21 [History] Aspirin 81 mg PO DAILY tab 11/09/21 [Rx] Melatonin 3 mg PO HS PRN tab 11/09/21 [Rx] Follow up Appointment(s)/Referral(s): Juan Pablo Daly MD [Primary Care Provider] - 1-2 days Activity/Diet/Wound Care/Special Instructions: Activity: As tolerated. Take breaks as needed. Patient requires supervision at all times. Diet: Heart healthy and carb consistent diet. Avoid salts, or foods with hidden salts such as canned or boxed foods and frozen dinners. Extra salt makes your heart work harder and traps the fluid in your body for longer. Special Instructions: Take all of your medications as directed and remember to keep all of your doctor's appointments and follow-up as needed. Thank you for allowing us to participate in your care, it was truly a pleasure having you for our patient!!!
[2021-11-09 11:41] VITALS: BP 134/81; PULSE 77; TEMP 97.7
== END 2021-11-09 16:25 ==
LOC: EC 11:02 → EEVIPCON 13:06 → 6NMEDSUR 13:06
PROVIDERS: ADMIT Internal Medicine; ATTEND Internal Medicine
DX: F03.90 Unspecified dementia, unspecified severity, without behavioral disturbance, psychotic disturbance, mood disturbance, and anxiety (principal); F39 Unspecified mood [affective] disorder; I25.10 Atherosclerotic heart disease of native coronary artery without angina pectoris; I13.0 Hypertensive heart and chronic kidney disease with heart failure and stage 1 through stage 4 chronic kidney disease, or unspecified chronic kidney disease; N18.9 Chronic kidney disease, unspecified; I48.0 Paroxysmal atrial fibrillation; I50.22 Chronic systolic (congestive) heart failure; Z95.1 Presence of aortocoronary bypass graft; Z82.49 Family history of ischemic heart disease and other diseases of the circulatory system; Z79.899 Other long term (current) drug therapy; Z95.0 Presence of cardiac pacemaker; Z87.891 Personal history of nicotine dependence; Z79.01 Long term (current) use of anticoagulants; Z75.1 Person awaiting admission to adequate facility elsewhere
CPT/HCPCS: 99285; 36415; 93005; 97530; 97162 ×2; 97535; 97165; 92523; 80053; 83735; 85025; G0378 ×21